=== PATIENT | female | born 1975 | race African-American/Black ===

== ENCOUNTER 2016-10-26 06:30 | Inpatient (IN) ==
[2016-10-26 07:25] LABS: Basophils % 0.5 % (0.0-0.8); Hematocrit 33.6 VOL% (35.7-47.0); Hemoglobin 10.1 GM/DL (12.0-16.0); Immature Granulocytes % 0.3 %; Immature Granulocytes Absolute 0.02 #; Lymphocytes # 1.9 10*3/uL (1.4-4.0); Lymphocytes % 23.7 % (21.3-54.2); Mean Corpuscular HGB Conc 30.1 GM/DL (32-36); Mean Corpuscular Hemoglobin 24 PG (27-34); Mean Corpuscular Volume 80.2 FL (87-102); Mean Platelet Volume 9.7 FL (9.6-12.0); Monocytes # 0.5 10*3/uL (0.11-0.8); Monocytes % 6.1 % (1.7-12.7); Neutrophils # 5.6 10*3/uL (1.4-7.4); Neutrophils % 69.4 % (38.7-73.9); Platelet Count 420 T/CUMM (130-400); Red Blood Count 4.19 MC/CUMM (3.8-5.5); Red Cell Distribution Width 19.7 % (9.3-17.3)
[2016-10-26] MEDS ORDERED: FUROSEMIDE 40 MG/4 ML VIAL IV STA (07:45)
--- NOTE | 2016-10-26 07:46 | XRay Report ---
Referring Physician: Johnathan Miramontes Exam: XR chest 1V portable Date: October 26, 2016 at 7:23 AM Reason: Shortness of breath Comparison: Chest one view portable March 30, 2016 Findings: The cardiac silhouette is again enlarged. There are hazy opacities in the perihilar regions and within both lower lung zones. This likely represents pulmonary edema, but other considerations include pneumonia. No pneumothorax is identified, but there is minimal bilateral pleural fluid. No acute osseous process is seen. Impression: 1. Cardiomegaly. 2. There are hazy opacities in the perihilar regions and within both lower lung zones. This is concerning for pulmonary edema, but other considerations include pneumonia. 3. Minimal bilateral pleural fluid. PROCEDURE INTERPRETED AT [facility] DEPARTMENT OF RADIOLOGY Final Report Signed by: Dr. Juvencio Gleason
[2016-10-26] MEDS ORDERED: FUROSEMIDE 100 MG/10 ML VIAL ONE (07:51)
[2016-10-26] MEDS ORDERED: FUROSEMIDE 40 MG/4 ML VIAL ONE (07:54)
[2016-10-26 07:56] LABS: Albumin 1.9 G/DL (3.4-5.0); Bilirubin,Total 0.4 MG/DL (0.2-1.0); Calcium 8.1 MG/DL (8.5-10.1); Osmolality,Calculated 305.1 MOS/KG (273-304); Total Protein 5.1 G/DL (6.4-8.3)
--- NOTE | 2016-10-26 08:07 | EKG Report ---
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
[2016-10-26] MEDS ORDERED: LABETALOL 20 MG/4 ML SYRINGE IV ONE (08:19)
[2016-10-26] MEDS ORDERED: LABETALOL 20 MG/4 ML SYRINGE IV STA (08:22)
--- NOTE | 2016-10-26 08:26 | Emergency Department Note ---
Alvarado Azar Hilary, am scribing for, and in the presence of, Johnathan Miramontes MD 07:38. Kulwinder Azar Phillip K, MD, personally performed the services described in this documentation, ascribed by Keke Childers in my presence, and it is both accurate and complete 826 . Arrival - Arrival Chief Complaint: Shortness of Breath Stated Complaint: sob ED Nursing Triage Note: C/O Swelling to entire body- 4+ pitting edema to lower exts/ Shortness of breath with exertion/laying down and HTN. Onset approx one week ago. Pt denies seeking medical attention until today. Pt reports a significant weight gain of approx 15-20 pounds over the past 2 weeks. FSG 74 at time of triage Mode of Arrival: Wheelchair Limitations: No Limitations Source: Patient, RN Notes Reviewed - History of Present Illness HPI Narrative: Pt is a 41 y/o black female presenting to the ED with c/o swelling to her entire body, SOB with exertion and lying down which onset a week ago. She reports that she went to family Dr a few days ago and they told her she needs to go see a Kidney Dr. Pt confirms swelling, and SOB but denies cough, fever. Pt has a PMHx of HTN, Depression, Anxiety, Previous Suicide attempt, Seizures, Glaucoma, Dyslipidemia, and IDDM. No other complaints or problems stated in the ED. Onset (ago): week(s) Date of Last Menstrual Period: 2 weeks ago Allergies/Adverse Reactions: Allergies Allergy/AdvReac Type Severity Reaction Status Date / Time No Known Allergies Allergy Verified 03/28/16 04:21 Home Medications: Home Medications Medication Instructions Recorded Confirmed Type buPROPion HCl [Wellbutrin Sr] 200 mg PO BID@05/16/15 04/07/16 History ARIPiprazole [Aripiprazole] 20 mg PO DAILY 12/01/15 04/06/16 History Latanoprost [Latanoprost 0.005 % 1 drop BOTH EYES BEDTIME 04/06/16 04/06/16 History Oph Soln] Pravastatin [Pravachol] 20 mg PO BEDTIME 04/06/16 04/06/16 History Carvedilol [Coreg] 25 mg PO BID #60 tablet 04/10/16 Rx Docusate Sodium Cap [Colace Cap] 100 mg PO BID PRN #60 capsule 04/10/16 Rx Ferrous Sulfate ER Tab [Slow Fe] 140 mg PO BID #60 tablet 04/10/16 Rx Insulin Lispro Prot/Lisp 75/25 40 unit SUBCUT AC SUPPER #7 04/10/16 Rx [HumaLOG Mix 75/25] injection Insulin Lispro Prot/Lisp 75/25 50 unit SUBCUT AC BREAKFAST #7 04/10/16 Rx [HumaLOG Mix 75/25] injection Ziprasidone Cap [Geodon Cap] 80 mg PO BID capsule 04/10/16 Rx amLODIPine [Norvasc] 10 mg PO BEDTIME #30 tablet 04/10/16 Rx hydrALAZINE TAB [Apresoline Tab] 50 mg PO QID #120 tablet 04/10/16 Rx Review of System - Review of System 12 point system: reviewed and no additional remarkable complaints except as stated - Review of System Constitutional: Present: weight gain (15-20lbs in 2 weeks). Absent: fever Respiratory: Present: respiratory distress (SOB upon exertion and laying down). 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), Glaucoma Endocrine: History of: Diabetes Mellitus (IDDM), Dyslipidemia Respiratory: History of: Obstructive Sleep Apnea (C PAP AT BED TIME SINCE 10/18) , Pneumonia (5 YRS AGO) Renal: History of: Renal Problems Genitourinary: History of: Recurring Urinary Tract Infections - Surgical History HEENT Surgeries: Patient denies: Thyroid Surgery - Family History Family History: Reports;: Family Diabetes (GM X2, PAT AUNT X3), Family Hypertension (MOM,DAD) Denies;: Family Cancer, Family Heart Disease, Family Psychiatric Problems, Family Stroke - Social History Smoking Status: Never smoker Frequency of Alcohol Use: None Type of Drug Use: None Exam Vital Signs: Vital Signs Temperature 98.8 F 10/26/16 06:32 Pulse Rate 75 10/26/16 08:33 Respiratory Rate 20 10/26/16 08:33 Blood Pressure 188/117 10/26/16 08:33 O2 Sat by Pulse Oximetry 98 10/26/16 08:33 - General General appearance: alert, in no apparent distress - Head Head exam: Present: atraumatic, normocephalic - Eye Eye exam: Present: normal appearance, PERRL, EOMI - ENT ENT exam: Present: mucous membranes moist, TM's normal bilaterally. Absent: mucous membranes dry - Neck Neck exam: Present: full ROM, trachea midline. Absent: tenderness - Chest Chest inspection: Present: symmetric chest wall rise. Absent: tenderness - Respiratory Respiratory exam: Present: normal lung sounds bilaterally. Absent: respiratory distress - Cardiovascular Cardiovascular exam: Present: regular rate, normal rhythm, normal heart sounds. Absent: murmur, rubs, gallop - Abdominal Exam Abdominal exam: Present: soft, normal bowel sounds. Absent: distention, tenderness - Extremities Exam Extremities exam: Present: full ROM, pedal edema (3+ edema bilaterally to lower extremities). Absent: tenderness - Back Exam Back exam: Present: full ROM. Absent: tenderness - Neurological Exam Neurological exam: Present: alert, oriented X3, CN II-XII intact - Psychiatric Psychiatric exam: Present: normal affect, normal mood - Skin Skin exam: Present: warm, dry, intact, normal color. Absent: rash Course Course Narrative: Patient discussed with the hospitalist who will admit for further evaluation and nephrology consult. Results - Labs CBC & BMP: 10/26/16 07:17 10/26/16 07:17 Lab Results: I have reviewed the patients labs Labs: Laboratory Tests 10/17/16 10/17/16 10/26/16 12:03 12:03 07:17 WBC 6.3 8.0 RBC 4.17 4.19 Hgb 10.4 L 10.1 L Hct 33.3 L 33.6 L MCV 79.9 L 80.2 L MCH 25 L 24 L MCHC 31.2 L 30.1 L RDW 19.4 H 19.7 H Plt Count 420 H MPV 9.4 L Sodium 148 H Potassium 3.5 Chloride 116 H Carbon Dioxide 25 BUN 33 H Creatinine 2.70 H Glucose 52 L Calcium 7.6 L Laboratory Tests 10/26/16 10/26/16 07:17 07:17 Sodium 149 H Potassium 4.0 Chloride 116 H Carbon Dioxide 24 BUN 46 H Creatinine 3.00 H Glucose 64 L Calculated Osmolality 305.1 H Calcium 8.1 L Alkaline Phosphatase 133 H B-Natriuretic Peptide 520 H Total Protein 5.1 L Albumin 1.9 L Albumin/Globulin Ratio 0.5 L Laboratory Tests 10/26/16 08:04 Urine Color Yellow Urine Appearance Slightly hazy Urine Urobilinogen < 2.0 H - EKG EKG results: interpreted by SANDRA, WNL, sinus rhythm - Diagnostic Findings Procedure: Chest x-ray: report reviewed by me (1. Cardiomegaly 2. There are hazy opacities in the perihilar regions and wihin both lower lung zones. This is concerning for pulmonary edema, but other considerations include pneumonia. 3. Minimal bilaterally pleural fluid) Disposition Clinical Impression: Congestive heart failure, Hypoalbuminemia, Chronic renal failure, Peripheral edema Case discussed with: patient Disposition: Still a Patient Condition: Guarded Additional Instructions: Admit to the hospitalist.
[2016-10-26 08:36] LABS: Apearance,Urine Slightly Hazy (Clear); Bacteria,Urine Many /HPF (Few); Bilirubin,Urine Negative (Negative); Blood, Urine Small mg/dL (Negative); Glucose,Urine (UA) 50 mg/dL (Negative); Ketones,Urine Negative (Negative); Nitrite,Urine Negative (Negative); Protein,Urine >=500 MG/DL; RBC,Urine 14 /HPF (0-4); Squamous Epithelial Cell,Urine Occasional /HPF (0-10); Urine Color Yellow (Yellow); Urine Specific Gravity 1.017 (1.001-1.035); Urine Urobilinogen < 2.0 EU/DL (0.2-1.0); WBC,Urine 3 /HPF (0-6)
[2016-10-26] MEDS ORDERED: hydrALAZINE 20 MG/1 ML VIAL IV STA (08:47)
[2016-10-26] MEDS ORDERED: hydrALAZINE 20 MG/1 ML VIAL ONE (08:48)
--- NOTE | 2016-10-26 09:23 | Hospitalist History & Physical ---
Assessment and Plan (1) Hypertensive nephrosclerosis Status: Acute Assessment and plan: Systolic blood pressure greater than 200 on admission. Urinalysis showed proteinuria greater than 500. Creatinine 3.00. Patient given labetalol and hydralazine in the ER with minimal response. She started on Cardene drip. Patient will be admitted to the ICU for further observation and treatment. We will consult nephrology Current Visit: Yes (2) Hypoglycemia associated with diabetes Status: Acute Assessment and plan: Serum glucose 64 on admission. Hold all diabetic medication. Monitor Accu- Cheks ACHS. Sliding scale insulin per protocol. Current Visit: Yes (3) Hypoalbuminemia Status: Acute Current Visit: Yes (4) Peripheral edema Status: Acute Assessment and plan: Given IV lasix 80mg in ED. Current Visit: Yes History of Present Illness Chief complaint: SOB, edema History of present illness: Ms. Dorado is a 41 year old female with a past medical history significant for hypertension, IDDM, medical noncompliance presents to the emergency room with complaints of generalized edema 1 week. The patient reports that she noticed her eyes and legs were swelling last week she also found it difficult to catch her breath. Patient states that she does have hypertension and diabetes however she has been noncompliant with her medications. She is followed by Dr. Lopes at [facility] but does not see a specialist of any sort. She reports that she has been told that her kidney function has been declining, however, she has not yet seen a level vial setter. She admits headache, generalized edema, dyspnea, JACKSON, difficulty walking. She denies any pain, nausea vomiting, numbness or tingling. She reports having gained 20 pounds over 2 weeks. Chest x-ray on admission shows cardiomegaly and is suspicious for pulmonary edema with minimal bilateral pleural fluid. Lab findings reveal WBC 8.0 hemoglobin 10.1 hematocrit 33.6 platelets 420 sodium 149 potassium 4.0 chloride 116 HCO3 24 BUN 46 creatinine 3.00 BNP 520 glucose 64 albumin 1.9. Urinalysis shows protein greater than 500. The patient will be admitted to hospital medicine service for further evaluation and treatment. She is a full code. Home Medications Medication Instructions Recorded Confirmed Type buPROPion HCl [Wellbutrin Sr] 200 mg PO BID@08,15 05/16/15 10/26/16 History ARIPiprazole [Aripiprazole] 20 mg PO DAILY 12/01/15 10/26/16 History Latanoprost [Latanoprost 0.005 % 1 drop BOTH EYES BEDTIME 04/06/16 10/26/16 History Oph Soln] Pravastatin [Pravachol] 20 mg PO BEDTIME 04/06/16 10/26/16 History Carvedilol [Coreg] 25 mg PO BID #60 tablet 04/10/16 10/26/16 Rx Ferrous Sulfate Tab [Feosol 325 mg PO BID 10/26/16 10/26/16 History Original Tab] Furosemide Tab [Lasix Tab] 40 mg PO QAM 10/26/16 10/26/16 History Insulin Lispro Prot/Lisp 75/25 20 unit SUBCUT AC SUPPER 10/26/16 10/26/16 History [HumaLOG Mix 75/25] Insulin Lispro Prot/Lisp 75/25 40 unit SUBCUT AC BREAKFAST 10/26/16 10/26/16 History [HumaLOG Mix 75/25] hydrALAZINE TAB [Apresoline Tab] 50 mg PO TID 10/26/16 10/26/16 History Allergies Allergy/AdvReac Type Severity Reaction Status Date / Time No Known Allergies Allergy Verified 03/28/16 04:21 Medical,Surgical,& Family Hx - Medical History Cardio: History of: Hypertension Psychological: History of: Anxiety Disorders, Depression, Previous Suicide Attempt Neurology: History of: Seizures HEENT: History of: 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), Glaucoma Endocrine: History of: Diabetes Mellitus (IDDM), Dyslipidemia Respiratory: History of: Obstructive Sleep Apnea (C PAP AT BED TIME SINCE 10/18) , Pneumonia (5 YRS AGO) Renal: History of: Renal Problems Genitourinary: History of: Recurring Urinary Tract Infections - Surgical History HEENT Surgeries: Patient denies: Thyroid Surgery - Family History Family History: Reports;: Family Diabetes (GM X2, PAT AUNT X3), Family Hypertension (MOM,DAD) Denies;: Family Cancer, Family Heart Disease, Family Psychiatric Problems, Family Stroke - Social History Smoking Status: Never smoker Frequency of Alcohol Use: None Type of Drug Use: None Marital Status: Single Lives With:: Parent Functional capacity: independent ambulation Exam - Constitutional Vitals: Period Temp Pulse Resp BP Sys/Marti Pulse Ox Last 24 Hr 98.8 F-98.8 F 75-86 20-26 188-223/106-134 90-100 General appearance: no acute distress, morbidly obese - Head Head exam: Present: normal inspection, normocephalic. Absent: abrasion, laceration - Eye Eye exam: Present: EOMI Pupils: Present: SAVANAH - ENT ENT exam: Present: normal exam, normal external ear exam - Neck Neck exam: Present: normal inspection. Absent: lymphadenopathy, tenderness, thyromegaly - Respiratory Respiratory exam: Present: decreased breath sounds. Absent: rales, rhonchi, wheezes - Cardiovascular Cardiovascular exam: Present: regular rate and rhythm. Absent: bradycardia, carotid bruit - GI/Abdominal GI/Abdominal exam: Present: normal bowel sounds. Absent: mass, tenderness, rebound - Extremities Exam Extremities exam: Present: normal inspection, edema (2+-3+ pitting LE bilaterally) - Back Exam Back exam: Present: normal inspection - Neurological Exam Neurological exam: Present: alert, oriented X3, CN II-XII intact - Psychiatric Psychiatric exam: Present: normal affect, normal mood - Skin Skin exam: Present: normal color, warm, dry Results - Labs CBC & BMP: 10/26/16 07:17 10/26/16 07:17 Lab Results: I have reviewed the past 24 hour labs - EKG EKG results: interpreted by SANDRA, sinus rhythm - Diagnostic Findings Procedure: Chest x-ray: image reviewed by me, report reviewed by me (pulmonary edema)
[2016-10-26] MEDS: niCARdipine INJ 25 MG in SODIUM CHLORIDE 0.9% 240 ML IV SCH ×3 (10:28→21:16)
[2016-10-26] MEDS ORDERED: ACETAMINOPHEN 325 MG TABLET PO PRN (10:44)
[2016-10-26] MEDS ORDERED: ONDANSETRON 4 MG/2 ML VIAL IV PRN (10:44)
[2016-10-26] MEDS ORDERED: MORPHINE 2 MG/1 ML SYRINGE IV PRN (10:44)
[2016-10-26] MEDS ORDERED: GLUCAGON 1 MG VIAL IM PRN (10:54)
[2016-10-26 11:34] LABS: Risk Ratio 1.96; Thyroid Stimulating Hormone 5.14 uIU/ml (0.358-3.74)
[2016-10-26] MEDS ORDERED: niCARdipine 25 MG/10 ML VIAL IV ONE (15:32)
[2016-10-26] MEDS: LACTULOSE 20 GM/30 ML UDCUP PO SCH ×4 (16:46→17:06)
[2016-10-26] MEDS: FUROSEMIDE 40 MG/4 ML VIAL IV SCH (16:47)
[2016-10-26] MEDS: buPROPion SR 100 MG TABLET PO SCH (16:47)
[2016-10-26] MEDS: INSULIN LISPRO 100 UNIT/ML SUBCUT SCH ×4 (16:47→21:06)
[2016-10-26] MEDS: ENOXAPARIN 30 MG/0.3 ML SYRINGE SUBCUT SCH (21:02)
[2016-10-26] MEDS: DOCUSATE SODIUM 100 MG CAPSULE PO SCH (21:05)
[2016-10-26] MEDS: CARVEDILOL 25 MG TABLET PO SCH (21:05)
[2016-10-26] MEDS: FERROUS SULFATE 325 MG TABLET PO SCH (21:05)
[2016-10-26] MEDS: PRAVASTATIN 20 MG TABLET PO SCH (21:05)
[2016-10-27] MEDS: niCARdipine INJ 50 MG in SODIUM CHLORIDE 0.9% 480 ML IV SCH (01:31)
[2016-10-27 06:46] LABS: Basophils % 0.5 % (0.0-0.8); Eosinophils % 0.1 % (0.00-10.9); Hematocrit 30.8 VOL% (35.7-47.0); Hemoglobin 9.5 GM/DL (12.0-16.0); Immature Granulocytes % 0.5 %; Immature Granulocytes Absolute 0.04 #; Lymphocytes # 1.6 10*3/uL (1.4-4.0); Lymphocytes % 21.7 % (21.3-54.2); Mean Corpuscular HGB Conc 30.8 GM/DL (32-36); Mean Corpuscular Hemoglobin 24 PG (27-34); Mean Corpuscular Volume 78.8 FL (87-102); Mean Platelet Volume 9.9 FL (9.6-12.0); Monocytes # 0.6 10*3/uL (0.11-0.8); Monocytes % 7.7 % (1.7-12.7); Neutrophils # 5.1 10*3/uL (1.4-7.4); Neutrophils % 69.5 % (38.7-73.9); Platelet Count 390 T/CUMM (130-400); Red Blood Count 3.91 MC/CUMM (3.8-5.5); Red Cell Distribution Width 19.8 % (9.3-17.3); White Blood Count 7.4 T/CUMM (4-12)
[2016-10-27 08:00] LABS: Calcium 7.4 MG/DL (8.5-10.1); Magnesium 2.7 MG/DL (1.8-2.4); Osmolality,Calculated 308.8 MOS/KG (273-304); Potassium 3.8 MMOL/L (3.5-5.1)
[2016-10-27] MEDS: INSULIN LISPRO 100 UNIT/ML SUBCUT SCH ×4 (08:12→21:30)
[2016-10-27] MEDS: DOCUSATE SODIUM 100 MG CAPSULE PO SCH ×2 (08:12→21:30)
[2016-10-27] MEDS: buPROPion SR 100 MG TABLET PO SCH ×2 (08:12→14:52)
[2016-10-27] MEDS: CARVEDILOL 25 MG TABLET PO SCH ×2 (08:12→21:30)
[2016-10-27] MEDS: PANTOPRAZOLE 40 MG TABLET PO SCH (08:12)
[2016-10-27] MEDS: FUROSEMIDE 40 MG/4 ML VIAL IV SCH ×3 (08:12→21:30)
[2016-10-27] MEDS: FERROUS SULFATE 325 MG TABLET PO SCH ×2 (08:13→21:30)
[2016-10-27] MEDS ORDERED: FUROSEMIDE 40 MG/4 ML VIAL IV SCH (09:00)
[2016-10-27] MEDS ORDERED: amLODIPine 5 MG TABLET PO SCH (09:00)
--- NOTE | 2016-10-27 12:17 | Nephrology Consult Note ---
History of Present Illness Chief complaint: Increased BUN and creatinine History of present illness: Ms. Dorado is a 41 year old female who was admitted for shortness of breath. The patient states she became very short of breath yesterday morning however she has had some progressive shortness of breath the past week or 2. She is also noted some increased swelling in her feet and legs as well as around her eyes. Patient states her shortness of breath has been worse at night she has been unable to lay flat like she usually does. She is also had some dyspnea on exertion. The patient has had some nonproductive cough. She denies any fever. She denies any chest pain. She denies any previous episodes of swelling or shortness of breath like this. We were asked see the patient for increased creatinine on admission the patient's creatinine was 3 mg/dL review of her previous creatinines reveals about a week or 2 ago she had a creatinine of 2.7 and a month or more ago the patient had a creatinine of around 2 mg/dL. In the past year the patient's creatinine has varied from around 1.5 mg/dL up to 2.4 mg /dL. The patient denies any decrease in her urine output. She denies any nonsteroidal anti-inflammatory drug use. The patient has not had any contrast studies done recently. The patient does have a 15+ year history of diabetes and hypertension. The patient was uncertain but thought that perhaps she had 1 of her medications stopped recently and is not sure whether this was the diuretic or not. ROS: Head -positive headaches ENT - denies sore throat Lymphatics - denies lymphadenopathy Hematology - denies bleeding problems Heart - denies chest pain Lungs -positive shortness of breath Abdomen - denies abdominal pain Musculoskeletal - denies arthritis Skin - denies rash Neurology - denies stroke General - denies fever PE: General: in no acute distress Eyes: Pupils are round and reactive, conjunctivae are clear ENT: Nose is clear, O/P is benign Neck: Supple, no thyromegaly Lymphatics: No cervical, supraclavicular or axillary adenopathy Heart: Regular rate and rhythm, patient has 2+ pitting edema in her pretibial area and the pitting edema extends up into her abdominal wall, she also has swelling in her upper extremities Lungs: Clear to auscultation anteriorly, chest expansion symmetric Abdomen: Soft, normoactive bowel sounds, no hepatomegaly Musculoskeletal: No joint erythema or effusions or joint asymmetry Skin: Normal turgor, normal hydration, no rash Neuro/Psych: Alert and cooperative with fair insight Home Medications Medication Instructions Recorded Confirmed Type buPROPion HCl [Wellbutrin Sr] 200 mg PO BID@08,15 05/16/15 10/26/16 History ARIPiprazole [Aripiprazole] 20 mg PO DAILY 12/01/15 10/26/16 History Latanoprost [Latanoprost 0.005 % 1 drop BOTH EYES BEDTIME 04/06/16 10/26/16 History Oph Soln] Pravastatin [Pravachol] 20 mg PO BEDTIME 04/06/16 10/26/16 History Carvedilol [Coreg] 25 mg PO BID #60 tablet 04/10/16 10/26/16 Rx Ferrous Sulfate Tab [Feosol 325 mg PO BID 10/26/16 10/26/16 History Original Tab] Furosemide Tab [Lasix Tab] 40 mg PO QAM 10/26/16 10/26/16 History Insulin Lispro Prot/Lisp 75/25 20 unit SUBCUT AC SUPPER 10/26/16 10/26/16 History [HumaLOG Mix 75/25] Insulin Lispro Prot/Lisp 75/25 40 unit SUBCUT AC BREAKFAST 10/26/16 10/26/16 History [HumaLOG Mix 75/25] hydrALAZINE TAB [Apresoline Tab] 50 mg PO TID 10/26/16 10/26/16 History Allergies Allergy/AdvReac Type Severity Reaction Status Date / Time No Known Allergies Allergy Verified 03/28/16 04:21 Medical,Surgical,& Family Hx - Medical History Cardio: History of: Hypertension Psychological: History of: Anxiety Disorders, Depression, Previous Suicide Attempt Neurology: History of: Seizures HEENT: History of: 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), Glaucoma Endocrine: History of: Diabetes Mellitus (IDDM), Dyslipidemia Respiratory: History of: Obstructive Sleep Apnea (C PAP AT BED TIME SINCE 10/18) , Pneumonia (5 YRS AGO) Renal: History of: Renal Problems Genitourinary: History of: Recurring Urinary Tract Infections - Surgical History HEENT Surgeries: Patient denies: Thyroid Surgery - Family History Family History: Reports;: Family Diabetes (GM X2, PAT AUNT X3), Family Hypertension (MOM,DAD) Denies;: Family Cancer, Family Heart Disease, Family Psychiatric Problems, Family Stroke - Social History Smoking Status: Never smoker Frequency of Alcohol Use: None Type of Drug Use: None Exam - Vital Signs Vital signs: Period Temp Pulse Resp BP Sys/Marti Pulse Ox Last 24 Hr 98.3 F-99.2 F 75-96 12-22 100-210/68-124 93-99 Results - Labs CBC & BMP: 10/27/16 04:00 10/27/16 07:00 Assessment and Plan (1) ARF (acute renal failure) Status: Resolved Assessment and plan: This patient had a creatinine around 2.7 mg/dL a few weeks ago it is now increased to 3.2 mg/dL today. This may be related to her volume overload and congestive changes. I agree with Lasix administration and diuresis. I will check a renal ultrasound. Current Visit: No (2) Chronic renal failure Status: Acute Assessment and plan: The patient's had an elevated creatinine in the past year, I would say her baseline creatinine is probably around 2 mg/dL or little bit higher. I suspect her chronic renal insufficiency is related to hypertension and diabetes. Current Visit: Yes (3) Congestive heart failure Status: Acute Assessment and plan: We will check an echocardiogram Current Visit: Yes (4) Hypoalbuminemia Status: Acute Assessment and plan: I am going to quantitate her albumin excretion with a spot urine microalbumin to creatinine ratio. She would do well to have a MEG or angiotensin receptor pablo added to her regimen at some point. I would hesitate to add it at this time as we actively diurese her. Current Visit: Yes (5) Peripheral edema Status: Acute Current Visit: Yes (6) Anemia Status: Acute Assessment and plan: This is relatively mild with hematocrit of around 31% Current Visit: No (7) Pulmonary edema Status: Acute Assessment and plan: Patient's breathing has improved with the Lasix administration. I am going to increase her Lasix dosing frequency to 3 times daily from twice daily. We will monitor her weights and eyes and nose to see how effective treatment is doing. Current Visit: No (8) Hypertension Status: Chronic Assessment and plan: Patient is requiring a Cardene infusion for blood pressure control as we get more of her fluid off this should improve. Current Visit: No (9) Insulin dependent diabetes mellitus Status: Chronic Current Visit: No
--- NOTE | 2016-10-27 12:17 | Hospitalist Progress Note ---
Hospitalist: Subjective Interval history: Pt states SOB is better. No headache, visual changes, nausea, vomiting, abdominal pain. Patient has had urine output. No hematuria reported. Exam - Constitutional Vitals: Period Temp Pulse Resp BP Sys/Marti Pulse Ox Last 24 Hr 98.3 F-99.2 F 75-96 12-22 100-210/68-124 93-99 Exam: GEN: Awake alert and oriented 3, lying in the hospital bed in no acute distress. Morbidly obese. HEENT: Pupils are equal round and reactive to light, extraocular muscles are intact, sclerae clear, conjunctivae pink, nares are patent no discharge or epistaxis noted. Oropharynx is clear Neck: Supple, no lymphadenopathy or thyromegaly appreciated, no JVD. Cardiovascular: Regular rate and rhythm, normal S1-S2, no obvious murmurs rubs or gallops. Lungs: Clear to auscultation bilaterally, diminished, nonlabored breathing noted Abdomen: Soft, nontender, nondistended, positive bowel sounds. No organomegaly or masses appreciated though difficult to assess given her body habitus Extremities: Warm and well-perfused no clubbing or cyanosis. She has +1-2 pitting edema diffusely Neuro: Nonfocal Results - Labs CBC & BMP: 10/27/16 04:00 10/27/16 07:00 - Impressions (1) Hypertensive emergency with renal failure Status: Acute Assessment and plan: - Systolic blood pressure greater than 200 on admission. Urinalysis showed proteinuria greater than 500. Creatinine 3.00. - Patient given labetalol and hydralazine in the ER with minimal response. - Continue Cardene drip. Stop Amlodipine and start Nifedipine orally. - Continue ICU while on cardene drip -Follow-up echo Current Visit: Yes (2) Acute renal failure on CKD ?stage - preliminary results suggest no cortical thinning and mild echogenicity. Follow-up official results -Awaiting nephrology input -Avoid nephrotoxic agents (3) Hypoglycemia associated with diabetes mellitus Status: Acute Assessment and plan: Serum glucose 64 on admission. -Continue to hold all diabetic medication. Monitor Accu-Cheks ACHS. Sliding scale insulin per protocol. Current Visit: Yes (4) Hypoalbuminemia Status: Acute Current Visit: Yes (5) Peripheral edema/ Anasarca Status: Acute Assessment and plan: Given IV lasix 80mg in ED. Continue diuresis. Strict I's and O's with serial renal function panels. Current Visit: Yes
--- NOTE | 2016-10-27 14:03 | XRay Report ---
Referring Physician: John Diana Exam: XR chest 1V portable Date: October 27, 2016 at 2:56 AM Reason: Shortness of breath Comparison: Chest one view portable October 26, 2016 Findings: The cardiac silhouette is again enlarged. There are hazy opacities within the mid and lower lung zones bilaterally. This likely represents pulmonary edema, but other considerations include pneumonia. No pneumothorax is identified, but there is minimal bilateral pleural fluid. The osseous structures appear stable. Impression: There has been no significant change. PROCEDURE INTERPRETED AT [facility] DEPARTMENT OF RADIOLOGY Final Report Signed by: Dr. Juvencio Gleason
--- NOTE | 2016-10-27 14:06 | Ultrasound Report ---
Referring Physician: John De La Rosa Exam: US renal Bilateral Date: October 27, 2016 Reason: Acute renal failure on chronic kidney disease Comparison: Gallbladder ultrasound April 01, 2007 Technique: Grayscale ultrasound images of both kidneys were obtained. Ultrasound images were captured and stored. Findings: The right kidney measures 10.0 x 6.1 x 4.3 cm, and the left kidney measures 8.9 x 4.6 x 4.0 cm. No hydronephrosis or suspicious renal lesion is identified. Evaluation of the renal parenchyma echogenicity is limited by patient body habitus, but it is unremarkable as visualized. Impression: No acute renal process is identified. PROCEDURE INTERPRETED AT [facility] DEPARTMENT OF RADIOLOGY Final Report Signed by: Dr. Juvencio Gleason
--- NOTE | 2016-10-27 20:01 | ECHO Report ---
Xena Dorado 10/27/2016 Exam Date: 10:57 Referring Physician: Bridgett AlcocerTechnologist: Age: 41 Ht (in): 66 Wt (lb): 298 FExam Location: [facility] Gender: Echo [id number]: Shortness of breath, volume overloadIndications: BP: / HR: SinusRhythm: Technical Quality: IMPRESSIONS Normal left ventricular size, with moderate concentric hypertrophy, with normal systolic function. Estimated left ventricular ejection fraction 65%. Grade 2 diastolic dysfunction. Mildly increased right ventricular size, with normal systolic function. Moderate tricuspid regurgitation, with borderline pulmonary hypertension. Biatrial enlargement. MEASUREMENTS (Male / Female) Normal Values 2D ECHO LV Diastolic Diameter PLAX 3.8 cm 4.2 - 5.9 / 3.9 - 5.3 cm LV Systolic Diameter PLAX 2.2 cm LV Fractional Shortening PLAX 41.9 % IVS Diastolic Thickness 1.8 cm 0.6 - 1.0 / 0.6 - 0.9 cm LVPW Diastolic Thickness 1.9 cm 0.6 - 1.0 / 0.6 - 0.9 cm RV Internal Dim ED PLAX 2.9 cm Aortic Root Diameter 2.4 cm LA Systolic Diameter LX 4.7 cm 3.0 - 4.0 / 2.7 - 3.8 cm DOPPLER TR Peak Velocity 258.0 cm/s TR Peak Gradient 26.6 mmHg FINDINGS Left Ventricle Normal left ventricular size, with moderate concentric hypertrophy, with normal systolic function. Estimated left ventricular ejection fraction 65%. Grade 2 diastolic dysfunction. Right Ventricle Mildly increased right ventricular size, with normal systolic function. Right Atrium The right atrium is mildly enlarged. Left Atrium The left atrium is mildly enlarged. Mitral Valve Morphologically normal mitral valve. Trace mitral valve regurgitation. Aortic Valve Structurally normal aortic valve, without stenosis, with trace insufficiency. Tricuspid Valve Morphologically normal tricuspid valve. Moderate eccentric tricuspid valve regurgitation.tricuspid regurgitation velocities suggest a PAP of 37 mmHg. Pulmonic Valve Morphologically normal pulmonic valve. Trace pulmonary valve regurgitation. Pericardium Trace pericardial effusion Aorta Normal ascending aorta dimension. Yamil Caldera (Electronically Signed) 27 Oct 2016 20:00Final Date:
[2016-10-27] MEDS: PRAVASTATIN 20 MG TABLET PO SCH (21:30)
[2016-10-27] MEDS: ENOXAPARIN 30 MG/0.3 ML SYRINGE SUBCUT SCH (21:30)
[2016-10-28] MEDS ORDERED: cloNIDine 0.1 MG/24 HR PATCH TRANSDERM SCH (00:29)
[2016-10-28] MEDS: MINOXIDIL 2.5 MG TABLET PO SCH ×2 (00:34→08:16)
[2016-10-28] MEDS ORDERED: cloNIDine 0.1 MG TABLET PO PRN (03:15)
[2016-10-28 07:00] LABS: Basophils % 0.5 % (0.0-0.8); Eosinophils % 0.1 % (0.00-10.9); Hemoglobin 9.3 GM/DL (12.0-16.0); Immature Granulocytes % 0.5 %; Immature Granulocytes Absolute 0.04 #; Lymphocytes # 1.6 10*3/uL (1.4-4.0); Lymphocytes % 19.1 % (21.3-54.2); Mean Corpuscular Hemoglobin 24 PG (27-34); Mean Corpuscular Volume 78.1 FL (87-102); Mean Platelet Volume 9.6 FL (9.6-12.0); Monocytes # 0.5 10*3/uL (0.11-0.8); Monocytes % 6.2 % (1.7-12.7); Neutrophils # 6.2 10*3/uL (1.4-7.4); Neutrophils % 73.6 % (38.7-73.9); Platelet Count 375 T/CUMM (130-400); Red Blood Count 3.84 MC/CUMM (3.8-5.5); Red Cell Distribution Width 19.1 % (9.3-17.3); White Blood Count 8.4 T/CUMM (4-12)
--- NOTE | 2016-10-28 07:25 | Hospitalist Progress Note ---
Hospitalist: Subjective Interval history: Patient lost IV overnight. Nicardipine had to be stopped. She was started on Catapres, nifedipine and minoxidil with better control of her pressures. She denies headache. Tolerating oral intake. She is having good urine output with IV Lasix but still complains of some shortness of breath and edema. Exam - Constitutional Vitals: Period Temp Pulse Resp BP Sys/Marti Pulse Ox Last 24 Hr 97.8 F-99.8 F 78-97 12-22 135-214/11-132 93-100 Exam: GEN: Awake alert and oriented 3, lying in the hospital bed in no acute distress. Morbidly obese. HEENT: sclerae clear, Oropharynx is clear Neck: Supple, no JVD. Cardiovascular: Regular rate and rhythm, normal S1-S2, 2/6 systolic murmur. Lungs: Clear to auscultation bilaterally, diminished, nonlabored breathing noted Abdomen: Soft, nontender, nondistended, positive bowel sounds. No organomegaly or masses appreciated though difficult to assess given her body habitus Extremities: Warm and well-perfused no clubbing or cyanosis. She has +1-2 pitting edema diffusely Neuro: Nonfocal Results - Labs CBC & BMP: 10/28/16 06:48 10/28/16 06:48 Labs: 2D ECHO: IMPRESSIONS Normal left ventricular size, with moderate concentric hypertrophy, with normal systolic function. Estimated left ventricular ejection fraction 65%. Grade 2 diastolic dysfunction. Mildly increased right ventricular size, with normal systolic function. Moderate tricuspid regurgitation, with borderline pulmonary hypertension. Biatrial enlargement. Renal U/S: - Impressions (1) Hypertensive emergency with renal failure Status: Acute Assessment and plan: - Systolic blood pressure greater than 200 on admission. Urinalysis showed proteinuria greater than 500. Creatinine 3.00. - Patient given labetalol and hydralazine in the ER with minimal response. - DC the minoxidil and continue other agents for now -Can transfer to the floor since off Cardene - Echo shows normal EF with diastolic dysfunction and moderate tricuspid regurgitation Current Visit: Yes (2) Acute renal failure on CKD ?stage due to diabetes mellitus and uncontrolled hypertension - 10/27 Renal U/S- no significant abnormalities noted -Nephrology following. Recommendations reviewed. Serial labs. -Avoid nephrotoxic agents (3) Diabetes mellitus-blood sugars uncontrolled Status: Acute Assessment and plan: Serum glucose 64 on admission. -Resume Humalog 70/30 40 units in the morning, 20 units at night. Monitor Accu- Cheks ACHS. Sliding scale insulin per protocol. Current Visit: Yes (4) Hypoalbuminemia Status: Acute Current Visit: Yes (5) Peripheral edema/ Anasarca due to Acute on chronic diastolic CHF with Moderate TR Status: Acute Assessment and plan: Given IV lasix 80mg in ED. Continue diuresis. Strict I's and O's with serial renal function panels. Current Visit: Yes (6) Suspected HARRY -Needs outpatient sleep study with titration Okay to transfer to the floor with telemetry. Consult IR for central line placement for IV antibiotics and IV access. - Diagnostic Findings Procedure: Ultrasound: report reviewed by me (US renal Bilateral)
[2016-10-28 07:50] LABS: Calcium 7.4 MG/DL (8.5-10.1); Magnesium 2.7 MG/DL (1.8-2.4); Osmolality,Calculated 309.8 MOS/KG (273-304); Potassium 3.9 MMOL/L (3.5-5.1)
[2016-10-28] MEDS: INSULIN LISPRO 100 UNIT/ML SUBCUT SCH ×4 (08:11→20:41)
[2016-10-28] MEDS: CARVEDILOL 25 MG TABLET PO SCH ×2 (08:12→20:41)
[2016-10-28] MEDS: PANTOPRAZOLE 40 MG TABLET PO SCH (08:12)
[2016-10-28] MEDS: DOCUSATE SODIUM 100 MG CAPSULE PO SCH ×2 (08:12→20:41)
[2016-10-28] MEDS: buPROPion SR 100 MG TABLET PO SCH ×2 (08:12→15:35)
[2016-10-28] MEDS: FERROUS SULFATE 325 MG TABLET PO SCH ×2 (08:12→20:41)
[2016-10-28] MEDS: FUROSEMIDE 40 MG/4 ML VIAL IV SCH ×3 (08:15→20:42)
[2016-10-28] MEDS: niCARdipine INJ 50 MG in SODIUM CHLORIDE 0.9% 480 ML IV SCH (08:15)
--- NOTE | 2016-10-28 11:39 | Nephrology Progress Note ---
Nephrology - PN: Subj Interval history: Ms. Dorado states her breathing is better today, she feels like her swelling is decreasing some. Review of systems GI she denies nausea or vomiting Physical exam general the patient is chronically ill-appearing, she continues with diffuse swelling, her weight is up about a KG and a half from her admission however her eyes and nose would suggest that she is in a negative fluid balance. Assessment/plan 1. Acute renal failure-patient's creatinine is stable today at 3.2 mg/dL it was 3 mg/dL on admission, few months ago the patient's creatinine was around 2.7 mg/dL a year or so ago her creatinine was around 2 mg/dL, the patient's renal ultrasound was unremarkable, she leaks about 3 g of albumin per day by spot analysis 2. Diabetes mellitus 3. Hypertension-patient's blood pressure has improved her systolic is around 150 now she is off the Cardene infusion 4. Congestive heart failure-patient seems to be breathing much better and compensated at this time. The patient's echo reveals a systolic ejection fraction of 65% she has grade 2 diastolic dysfunction, she has moderate mitral regurgitation with borderline pulmonary hypertension. We will continue the Lasix 40 mg IV 3 times a day as I am putting more stock in her I/O's than her daily weights Exam (PN)-Nephrology - Vital Signs Vital signs: Period Temp Pulse Resp BP Sys/Marti Pulse Ox Last 24 Hr 97.8 F-99.8 F 76-97 10-22 130-214/11-132 92-100 - Lab 10/28/16 06:48 10/28/16 06:48 Most recent lab results Calcium 7.4 MG/DL (8.5-10.1) L 10/28/16 06:48 Magnesium 2.7 MG/DL (1.8-2.4) H 10/28/16 06:48 Assessment and Plan (1) ARF (acute renal failure) Status: Resolved Assessment and plan: This patient had a creatinine around 2.7 mg/dL a few weeks ago it is now increased to 3.2 mg/dL today. This may be related to her volume overload and congestive changes. I agree with Lasix administration and diuresis. I will check a renal ultrasound. Current Visit: No (2) Chronic renal failure Status: Acute Assessment and plan: The patient's had an elevated creatinine in the past year, I would say her baseline creatinine is probably around 2 mg/dL or little bit higher. I suspect her chronic renal insufficiency is related to hypertension and diabetes. Current Visit: Yes (3) Congestive heart failure Status: Acute Assessment and plan: We will check an echocardiogram Current Visit: Yes (4) Hypoalbuminemia Status: Acute Assessment and plan: I am going to quantitate her albumin excretion with a spot urine microalbumin to creatinine ratio. She would do well to have a MEG or angiotensin receptor pablo added to her regimen at some point. I would hesitate to add it at this time as we actively diurese her. Current Visit: Yes (5) Peripheral edema Status: Acute Current Visit: Yes (6) Anemia Status: Acute Assessment and plan: This is relatively mild with hematocrit of around 31% Current Visit: No (7) Pulmonary edema Status: Acute Assessment and plan: Patient's breathing has improved with the Lasix administration. I am going to increase her Lasix dosing frequency to 3 times daily from twice daily. We will monitor her weights and eyes and nose to see how effective treatment is doing. Current Visit: No (8) Hypertension Status: Chronic Assessment and plan: Patient is requiring a Cardene infusion for blood pressure control as we get more of her fluid off this should improve. Current Visit: No (9) Insulin dependent diabetes mellitus Status: Chronic Current Visit: No
[2016-10-28] MEDS ORDERED: HEPARIN LOCK FLUSH 500 UNIT/5 ML SYRINGE IV ONE (14:45)
--- NOTE | 2016-10-28 15:27 | Interventional Radiology Rpt ---
Exam: IR cvc insert nt >5, IR fluoro guide cv cath, US guide vascular access Date: 10/28/2016 1:35 PM Indication: IV access Vascular interventional radiologist: Robert Manley, RT Fluoroscopy time. 1 1.2 minutes fluoroscopy time with a single image obtained Comparison: None Findings: The risk and benefits were explained and informed consent was obtained. The patient's placed on examination table. The right internal jugular vein area was prepped and with maximal sterile barrier utilized with the oil spreader operator and assistance wearing, caps, gown ,gloves ,facemask and hand washing was utilized. The patient arm was cleansed with ChloraPrep. 1% local lidocaine was administered. Real-time ultrasound guidance was utilized with image stored and captured. Sterile ultrasound gel was utilized. The right internal jugular vein was vein was patent. A micropuncture catheter was placed with real-time ultrasound guidance. An 035 guidewire was advanced and a peel-away sheath was placed. A 7 Nigerien dilator sheath was placed and the wire was advanced subsequently a 5 Nigerien introducer sheath was placed. 5 Nigerien introducer were then removed and over the guidewire A 20 cm 7 Nigerien triple-lumen catheter was placed and secured to the skin with 3-0 suture. The distal tip is in the superior vena cava right atrial junction. Estimated blood loss. None Complications. None Condition. Stable Specimen none Impression: 1. Satisfactory ultrasound and fluoroscopy guided right internal jugular vein catheter placement PROCEDURE INTERPRETED AT [facility] DEPARTMENT OF RADIOLOGY Final Report Signed by: Dr. Robert Carrasco
[2016-10-28] MEDS: INSULIN NPH/REGULAR 70/30 100 UNIT/ML SUBCUT SCH (17:16)
[2016-10-28] MEDS: ENOXAPARIN 30 MG/0.3 ML SYRINGE SUBCUT SCH (20:41)
[2016-10-28] MEDS: PRAVASTATIN 20 MG TABLET PO SCH (20:49)
[2016-10-29] MEDS: CARVEDILOL 25 MG TABLET PO SCH ×2 (08:16→21:08)
[2016-10-29] MEDS: DOCUSATE SODIUM 100 MG CAPSULE PO SCH ×2 (08:16→21:08)
[2016-10-29] MEDS: buPROPion SR 100 MG TABLET PO SCH ×2 (08:16→16:03)
[2016-10-29] MEDS: PANTOPRAZOLE 40 MG TABLET PO SCH (08:17)
[2016-10-29] MEDS: FERROUS SULFATE 325 MG TABLET PO SCH ×2 (08:17→21:16)
[2016-10-29] MEDS: FUROSEMIDE 40 MG/4 ML VIAL IV SCH ×2 (08:17→16:00)
--- NOTE | 2016-10-29 08:29 | Nephrology Progress Note ---
Nephrology - PN: Subj Interval history: Ms. Dorado is seen in follow-up of her acute superimposed on chronic renal impairment. She has 3+ peripheral edema and is no longer short of breath. Her weight remains fairly stable and she is receiving 40 mg of Lasix IV 3 times daily. Blood pressure is reasonable now in the range of 150/80. She does need a bit more diuresis and I think a larger dose less frequently may be the way to go. We will change to 80 mg furosemide twice daily IV. Exam (PN)-Nephrology - Vital Signs Vital signs: Period Temp Pulse Resp BP Sys/Marti Pulse Ox Last 24 Hr 98 F-98.7 F 81-93 12-24 143-195/65-107 92-97 - Lab 10/28/16 06:48 10/28/16 06:48 Most recent lab results Calcium 7.4 MG/DL (8.5-10.1) L 10/28/16 06:48 Magnesium 2.7 MG/DL (1.8-2.4) H 10/28/16 06:48
--- NOTE | 2016-10-29 09:52 | Hospitalist Progress Note ---
Assessment and Plan - Time spent with patient Time spent with patient: Less than 30 minutes (1) Hypertension Status: Acute Assessment and plan: Patient was admitted with a hypertensive emergency and dyspnea secondary to pulmonary edema. Echocardiogram reveals normal LV function with grade 2 diastolic dysfunction. Her blood pressures are fairly well-controlled at this time. Continue current medical therapy. Current Visit: No (2) Diabetes mellitus Status: Chronic Assessment and plan: Blood sugars are improving on current regimen. Continue Accu-Cheks with sliding scale. Current Visit: Yes Qualifiers: Diabetes mellitus type: type 2 (3) Chronic kidney disease Status: Acute Assessment and plan: Patient has acute on chronic kidney disease. Nephrology is following. Appreciate Dr. Flowers's input and adjustment of her IV diuretic therapy. We will follow-up electrolytes renal function in a.m. Current Visit: Yes Hospitalist: Subjective Interval history: Ms. Dorado is doing better today. She denies any chest pain or shortness of breath. She states she she has been a little bit drowsy and continues to have significant swelling of her legs. Exam - Constitutional Vitals: Period Temp Pulse Resp BP Sys/Marti Pulse Ox Last 24 Hr 98 F-98.7 F 81-93 12-24 143-195/65-107 92-97 General appearance: no acute distress - Head Head exam: Present: normocephalic, atraumatic - Eye Eye exam: Present: EOMI Pupils: Present: SAVANAH - ENT ENT exam: Present: normal exam - Neck Neck exam: Present: normal inspection - Respiratory Respiratory exam: Present: clear to auscultation bilaterally. Absent: rales, rhonchi, wheezes - Cardiovascular Cardiovascular exam: Present: regular rate and rhythm. Absent: systolic murmur , tachycardia - GI/Abdominal GI/Abdominal exam: Present: normal bowel sounds, soft. Absent: mass, tenderness , rebound - Extremities Exam Extremities exam: Present: edema (3+ pitting edema) - Back Exam Back exam: Present: normal inspection - Neurological Exam Neurological exam: Present: alert, oriented X3, CN II-XII intact. Absent: motor sensory deficit - Psychiatric Psychiatric exam: Present: normal affect, normal mood - Skin Skin exam: Present: warm, dry. Absent: rash Results - Labs CBC & BMP: 10/28/16 06:48 10/28/16 06:48 Lab Results: I have reviewed the past 24 hour labs
[2016-10-29] MEDS: INSULIN LISPRO 100 UNIT/ML SUBCUT SCH ×4 (11:26→21:08)
[2016-10-29] MEDS: INSULIN NPH/REGULAR 70/30 100 UNIT/ML SUBCUT SCH ×2 (11:26→17:58)
[2016-10-29] MEDS: PRAVASTATIN 20 MG TABLET PO SCH (21:08)
[2016-10-29] MEDS: ENOXAPARIN 30 MG/0.3 ML SYRINGE SUBCUT SCH (21:09)
[2016-10-30 06:21] LABS: Calcium 8.3 MG/DL (8.5-10.1); Osmolality,Calculated 301.8 MOS/KG (273-304); Potassium 3.8 MMOL/L (3.5-5.1)
[2016-10-30] MEDS: FERROUS SULFATE 325 MG TABLET PO SCH ×2 (08:27→20:00)
[2016-10-30] MEDS: PANTOPRAZOLE 40 MG TABLET PO SCH (08:27)
[2016-10-30] MEDS: INSULIN NPH/REGULAR 70/30 100 UNIT/ML SUBCUT SCH ×2 (08:28→17:24)
[2016-10-30] MEDS: DOCUSATE SODIUM 100 MG CAPSULE PO SCH ×2 (08:28→20:00)
[2016-10-30] MEDS: INSULIN LISPRO 100 UNIT/ML SUBCUT SCH ×4 (08:28→20:00)
[2016-10-30] MEDS: buPROPion SR 100 MG TABLET PO SCH ×2 (08:28→14:27)
[2016-10-30] MEDS: CARVEDILOL 25 MG TABLET PO SCH ×2 (08:28→17:32)
[2016-10-30] MEDS: FUROSEMIDE 40 MG/4 ML VIAL IV SCH ×2 (08:28→15:03)
--- NOTE | 2016-10-30 08:32 | Nephrology Progress Note ---
Nephrology - PN: Subj Interval history: Ms. Dorado is seen in follow-up of her chronic renal impairment. She remains very edematous but is not short of breath. Blood pressure is elevated and creatinine stable at 3.3. We are going to add metolazone 5 mg daily to increase diuresis and hopefully diurese another 5 to 10 kg of volume. Thank Exam (PN)-Nephrology - Vital Signs Vital signs: Period Temp Pulse Resp BP Sys/Marti Pulse Ox Last 24 Hr 97.7 F-99.2 F 76-95 19-220 152-191/78-90 93-97 - Lab 10/28/16 06:48 10/30/16 05:10 Most recent lab results Calcium 8.3 MG/DL (8.5-10.1) L 10/30/16 05:10 Magnesium 2.7 MG/DL (1.8-2.4) H 10/28/16 06:48
--- NOTE | 2016-10-30 09:21 | Hospitalist Progress Note ---
Assessment and Plan - Time spent with patient Time spent with patient: Less than 30 minutes (1) Hypertension Status: Acute Assessment and plan: Patient was admitted with a hypertensive emergency and dyspnea secondary to pulmonary edema. Echocardiogram reveals normal LV function with grade 2 diastolic dysfunction. Her blood pressures are fairly well-controlled at this time. Continue current medical therapy. 10/30/16: Continuing to optimize medical management of her hypertension. Current Visit: No (2) Diabetes mellitus Status: Chronic Assessment and plan: Blood sugars are improving on current regimen. Continue Accu-Cheks with sliding scale. 10/30/16: Blood sugars remain high. Will adjust her regimen accordingly. Current Visit: Yes Qualifiers: Diabetes mellitus type: type 2 (3) Chronic kidney disease Status: Acute Assessment and plan: Patient has acute on chronic kidney disease. Nephrology is following. Appreciate Dr. Flowers's input and adjustment of her IV diuretic therapy. We will follow-up electrolytes renal function in a.m. 10/30/16: Blood pressure remains somewhat elevated and she has significant edema. Dr. Flowers is added Zaroxolyn to her current regimen. We will continue to follow electrolytes and renal function. Creatinine is 3.3 this morning and has ranged from 3.0-3.3 during her stay. Current Visit: Yes Hospitalist: Subjective Interval history: Ms. Dorado denies any headache, chest pain, shortness breath, palpitations, abdominal pain, nausea, vomiting. She still has an elevated blood pressure as well as significant lower extremity edema. Dr. Flowers is evaluated this morning and added Zaroxolyn to her regimen. Exam - Constitutional Vitals: Period Temp Pulse Resp BP Sys/Marti Pulse Ox Last 24 Hr 97.7 F-99.2 F 76-95 19-220 152-191/78-90 93-97 General appearance: no acute distress - Head Head exam: Present: normocephalic, atraumatic - Eye Eye exam: Present: EOMI Pupils: Present: SAVANAH - ENT ENT exam: Present: normal exam - Neck Neck exam: Present: normal inspection - Respiratory Respiratory exam: Present: clear to auscultation bilaterally - Cardiovascular Cardiovascular exam: Present: regular rate and rhythm - GI/Abdominal GI/Abdominal exam: Present: normal bowel sounds, soft. Absent: mass, tenderness - Extremities Exam Extremities exam: Present: edema. Absent: calf tenderness - Back Exam Back exam: Present: normal inspection - Neurological Exam Neurological exam: Present: alert, oriented X3, CN II-XII intact. Absent: motor sensory deficit - Psychiatric Psychiatric exam: Present: normal affect, normal mood. Absent: agitated, anxious - Skin Skin exam: Present: warm, dry. Absent: erythema Results - Labs CBC & BMP: 10/28/16 06:48 10/30/16 05:10 Lab Results: I have reviewed the past 24 hour labs
[2016-10-30] MEDS ORDERED: INSULIN NPH/REGULAR 70/30 100 UNIT/ML SUBCUT SCH (09:26)
[2016-10-30] MEDS: metOLazone 5 MG TABLET PO SCH (10:22)
[2016-10-30] MEDS: ARIPiprazole 10 MG TABLET PO SCH (11:02)
[2016-10-30] MEDS: ENOXAPARIN 30 MG/0.3 ML SYRINGE SUBCUT SCH (20:00)
[2016-10-30] MEDS: PRAVASTATIN 20 MG TABLET PO SCH (20:00)
[2016-10-31] MEDS: INSULIN LISPRO 100 UNIT/ML SUBCUT SCH ×5 (08:19→20:38)
[2016-10-31] MEDS: buPROPion SR 100 MG TABLET PO SCH ×2 (08:24→16:08)
[2016-10-31] MEDS: FUROSEMIDE 40 MG/4 ML VIAL IV SCH (08:24)
[2016-10-31] MEDS: ARIPiprazole 10 MG TABLET PO SCH (08:24)
[2016-10-31] MEDS: DOCUSATE SODIUM 100 MG CAPSULE PO SCH ×2 (08:25→20:38)
[2016-10-31] MEDS: metOLazone 5 MG TABLET PO SCH (08:25)
[2016-10-31] MEDS: FERROUS SULFATE 325 MG TABLET PO SCH ×2 (08:25→20:38)
[2016-10-31] MEDS: CARVEDILOL 25 MG TABLET PO SCH ×2 (08:25→16:08)
[2016-10-31] MEDS: POTASSIUM CHLORIDE 20 MEQ TABLET PO PRN (08:25)
[2016-10-31] MEDS: PANTOPRAZOLE 40 MG TABLET PO SCH (08:25)
--- NOTE | 2016-10-31 08:46 | Hospitalist Progress Note ---
Assessment and Plan - Time spent with patient Time spent with patient: Less than 30 minutes (1) Hypertension Status: Acute Assessment and plan: Patient was admitted with a hypertensive emergency and dyspnea secondary to pulmonary edema. Echocardiogram reveals normal LV function with grade 2 diastolic dysfunction. Her blood pressures are fairly well-controlled at this time. Continue current medical therapy. 10/30/16: Continuing to optimize medical management of her hypertension. 10/31/16: Blood pressures are improving. Continue current medical therapy. Current Visit: No (2) Diabetes mellitus Status: Chronic Assessment and plan: Blood sugars are improving on current regimen. Continue Accu-Cheks with sliding scale. 10/30/16: Blood sugars remain high. Will adjust her regimen accordingly. 10/31/16: Blood sugars somewhat labile. Will continue current medical regimen and follow. Current Visit: Yes Qualifiers: Diabetes mellitus type: type 2 (3) Chronic kidney disease Status: Acute Assessment and plan: Patient has acute on chronic kidney disease. Nephrology is following. Appreciate Dr. Flowers's input and adjustment of her IV diuretic therapy. We will follow-up electrolytes renal function in a.m. 10/30/16: Blood pressure remains somewhat elevated and she has significant edema. Dr. Flowers is added Zaroxolyn to her current regimen. We will continue to follow electrolytes and renal function. Creatinine is 3.3 this morning and has ranged from 3.0-3.3 during her stay. 10/31/16: Morning laboratory studies are currently pending. She is continue with diuresis for her peripheral edema. Will await laboratory studies and further recommendations from nephrology. Current Visit: Yes Hospitalist: Subjective Interval history: Patient has no complaints of chest pain or shortness of breath she continues to have swelling in her lower extremities. She has been ambulatory in the grand[facility]. Exam - Constitutional Vitals: Period Temp Pulse Resp BP Sys/Marti Pulse Ox Last 24 Hr 97.5 F-99.2 F 75-89 18-20 157-182/67-88 90-95 General appearance: no acute distress - Head Head exam: Present: normocephalic, atraumatic - Eye Eye exam: Present: EOMI Pupils: Present: SAVANAH - ENT ENT exam: Present: normal exam - Neck Neck exam: Present: normal inspection - Respiratory Respiratory exam: Present: clear to auscultation bilaterally - Cardiovascular Cardiovascular exam: Present: regular rate and rhythm - GI/Abdominal GI/Abdominal exam: Present: normal bowel sounds, soft. Absent: mass, tenderness - Extremities Exam Extremities exam: Present: edema (To 3+ pitting edema bilateral). Absent: calf tenderness - Back Exam Back exam: Present: normal inspection - Neurological Exam Neurological exam: Present: alert, oriented X3, CN II-XII intact. Absent: motor sensory deficit - Psychiatric Psychiatric exam: Present: normal affect, normal mood. Absent: agitated, anxious - Skin Skin exam: Present: warm, dry. Absent: erythema Results - Labs CBC & BMP: 10/28/16 06:48 10/30/16 05:10 Lab Results: I have reviewed the past 24 hour labs
[2016-10-31 10:46] LABS: Calcium 7.9 MG/DL (8.5-10.1); Potassium 3.6 MMOL/L (3.5-5.1)
--- NOTE | 2016-10-31 12:14 | Nephrology Progress Note ---
Nephrology - PN: Subj Interval history: Ms. Dorado is seen in follow-up of her renal impairment with considerable peripheral edema. Her edema remains unchanged and her weight is unchanged despite being on IV Lasix and p.o. metolazone. She is up and around and is not short of breath today. We are going to increase her Lasix from 80 mg twice daily to 160 mg twice daily and will increase metolazone to 10 mg daily. Creatinine remains stable at 3.3 Exam (PN)-Nephrology - Vital Signs Vital signs: Period Temp Pulse Resp BP Sys/Marti Pulse Ox Last 24 Hr 97.6 F-99.2 F 75-93 18-20 154-182/67-88 90-95 - Lab 10/28/16 06:48 10/31/16 09:39 Most recent lab results Calcium 7.9 MG/DL (8.5-10.1) L 10/31/16 09:39 Magnesium 2.7 MG/DL (1.8-2.4) H 10/28/16 06:48
[2016-10-31] MEDS: INSULIN NPH/REGULAR 70/30 100 UNIT/ML SUBCUT SCH ×2 (16:07→17:55)
[2016-10-31] MEDS: FUROSEMIDE 100 MG/10 ML VIAL IV SCH (16:07)
[2016-10-31] MEDS: DEXTROSE 50% 25 GM/50 ML VIAL IV PRN ×2 (17:59→23:32)
[2016-10-31] MEDS: PRAVASTATIN 20 MG TABLET PO SCH (20:38)
[2016-10-31] MEDS: ENOXAPARIN 30 MG/0.3 ML SYRINGE SUBCUT SCH (20:38)
[2016-11-01 06:55] LABS: Calcium 7.4 MG/DL (8.5-10.1); Osmolality,Calculated 298.8 MOS/KG (273-304); Potassium 3.3 MMOL/L (3.5-5.1)
[2016-11-01] MEDS: INSULIN NPH/REGULAR 70/30 100 UNIT/ML SUBCUT SCH ×3 (07:32→17:21)
[2016-11-01] MEDS: INSULIN LISPRO 100 UNIT/ML SUBCUT SCH ×4 (07:32→21:36)
[2016-11-01] MEDS: POTASSIUM CHLORIDE 20 MEQ TABLET PO PRN (08:39)
[2016-11-01] MEDS: metOLazone 5 MG TABLET PO SCH (08:39)
[2016-11-01] MEDS: FUROSEMIDE 100 MG/10 ML VIAL IV SCH ×2 (08:39→16:53)
[2016-11-01] MEDS: PANTOPRAZOLE 40 MG TABLET PO SCH (08:39)
[2016-11-01] MEDS: CARVEDILOL 25 MG TABLET PO SCH ×2 (08:39→16:53)
[2016-11-01] MEDS: ARIPiprazole 10 MG TABLET PO SCH (08:39)
[2016-11-01] MEDS: FERROUS SULFATE 325 MG TABLET PO SCH ×2 (08:39→20:33)
[2016-11-01] MEDS: buPROPion SR 100 MG TABLET PO SCH ×2 (08:39→16:53)
[2016-11-01] MEDS: DOCUSATE SODIUM 100 MG CAPSULE PO SCH ×2 (08:39→20:33)
--- NOTE | 2016-11-01 12:41 | Nephrology Progress Note ---
Nephrology - PN: Subj Interval history: Patient states she feels better. She denies nausea or vomiting. Review of systems pulmonary she denies shortness of breath Physical exam general the patient in no acute distress, she has diffuse edema Assessment/plan 1. Acute renal failure on chronic renal failure-patient's creatinine is fairly stable around 3.3 mg/dL today 2. Diabetes mellitus 3. Hypertension 4. Volume overload-patient had her diuretics increased yesterday we will observe for response. Exam (PN)-Nephrology - Vital Signs Vital signs: Period Temp Pulse Resp BP Sys/Marti Pulse Ox Last 24 Hr 98.0 F-99.8 F 53-91 20-22 137-177/60-92 92-99 - Lab 10/28/16 06:48 11/01/16 04:52 Most recent lab results Calcium 7.4 MG/DL (8.5-10.1) L 11/01/16 04:52 Magnesium 2.7 MG/DL (1.8-2.4) H 10/28/16 06:48 Assessment and Plan (1) ARF (acute renal failure) Status: Resolved Assessment and plan: This patient had a creatinine around 2.7 mg/dL a few weeks ago it is now increased to 3.2 mg/dL today. This may be related to her volume overload and congestive changes. I agree with Lasix administration and diuresis. I will check a renal ultrasound. Current Visit: No (2) Chronic renal failure Status: Acute Assessment and plan: The patient's had an elevated creatinine in the past year, I would say her baseline creatinine is probably around 2 mg/dL or little bit higher. I suspect her chronic renal insufficiency is related to hypertension and diabetes. Current Visit: Yes (3) Congestive heart failure Status: Acute Assessment and plan: We will check an echocardiogram Current Visit: Yes (4) Hypoalbuminemia Status: Acute Assessment and plan: I am going to quantitate her albumin excretion with a spot urine microalbumin to creatinine ratio. She would do well to have a MEG or angiotensin receptor pablo added to her regimen at some point. I would hesitate to add it at this time as we actively diurese her. Current Visit: Yes (5) Peripheral edema Status: Acute Current Visit: Yes (6) Anemia Status: Acute Assessment and plan: This is relatively mild with hematocrit of around 31% Current Visit: No (7) Pulmonary edema Status: Acute Assessment and plan: Patient's breathing has improved with the Lasix administration. I am going to increase her Lasix dosing frequency to 3 times daily from twice daily. We will monitor her weights and eyes and nose to see how effective treatment is doing. Current Visit: No (8) Hypertension Status: Acute Assessment and plan: Patient is requiring a Cardene infusion for blood pressure control as we get more of her fluid off this should improve. Current Visit: No (9) Insulin dependent diabetes mellitus Status: Chronic Current Visit: No
--- NOTE | 2016-11-01 16:47 | Hospitalist Progress Note ---
<JoeCarito - Last Filed: 11/01/16 16:45> Assessment and Plan (1) Chronic kidney disease Status: Acute Assessment and plan: Creatinine at 32 down from 33 on yesterday; Nephrology to manage. Current Visit: Yes (2) Diabetes mellitus Status: Chronic Assessment and plan: Blood glucose levels are stable; continue accuchecks with ss coverage. Current Visit: Yes Qualifiers: Diabetes mellitus type: type 2 (3) Hypertension Status: Acute Assessment and plan: Blood pressures stable with current regimen; will continue to monitor. Current Visit: No Hospitalist: Subjective Interval history: Patient seen and examined; no significant overnight events. Creatinine at 3.2 today from 3.3 on yesterday. Exam - Constitutional Vitals: Period Temp Pulse Resp BP Sys/Marti Pulse Ox Last 24 Hr 98.0 F-99.3 F 53-91 20-22 137-177/60-90 92-99 General appearance: normal weight, no acute distress - Head Head exam: Present: normal inspection, normocephalic. Absent: atraumatic - Eye Eye exam: Present: EOMI. Absent: conjunctival injection, nystagmus Pupils: Present: SAVANAH, normal accommodation - ENT ENT exam: Present: normal exam. Absent: normal external ear exam, normal oropharynx - Neck Neck exam: Present: normal inspection. Absent: lymphadenopathy, meningismus, tenderness, thyromegaly - Respiratory Respiratory exam: Present: clear to auscultation bilaterally. Absent: rales, rhonchi, stridor, wheezes - Cardiovascular Cardiovascular exam: Present: regular rate and rhythm. Absent: carotid bruit, diastolic murmur, gallop, JVD, rubs, systolic murmur - GI/Abdominal GI/Abdominal exam: Present: normal bowel sounds. Absent: mass, tenderness, soft - Extremities Exam Extremities exam: Present: edema (trace edema noted) - Back Exam Back exam: Present: normal inspection - Neurological Exam Neurological exam: Present: alert, oriented X3, CN II-XII intact - Psychiatric Psychiatric exam: Present: normal affect, normal mood - Skin Skin exam: Present: normal color, warm, dry Results - Labs CBC & BMP: 10/28/16 06:48 11/01/16 04:52 Lab Results: I have reviewed the past 24 hour labs <Marybeth,Hatem - Last Filed: 11/01/16 17:26> Assessment and Plan (1) Hypertension Status: Acute Assessment and plan: Patient on Coreg, hydralazine, nifedipine and clonidine as needed. Pressures controlled. Diuresis in process with Zaroxolyn and high-dose IV Lasix. Continue to monitor renal function. Nephrology following. Current Visit: No (2) Insulin dependent diabetes mellitus Status: Chronic Assessment and plan: Continue insulin therapy Current Visit: No (3) Chronic kidney disease Status: Chronic Current Visit: Yes Qualifiers: Chronic kidney disease stage: stage 3 (moderate) Qualified Code(s): N18.3 - Chronic kidney disease, stage 3 (moderate) Hospitalist: Subjective Interval history: Patient seen and examined. No acute events overnight. Case discussed with nursing staff. Labs reviewed. Patient not wearing phototypesetting equipment monitor -will discontinue. Exam - Constitutional Vitals: Period Temp Pulse Resp BP Sys/Marti Pulse Ox Last 24 Hr 98.0 F-99.3 F 53-91 18-22 137-177/60-90 92-99 Results - Labs CBC & BMP: 10/28/16 06:48 11/01/16 04:52 Lab Results: I have reviewed the past 24 hour labs
[2016-11-01] MEDS: PRAVASTATIN 20 MG TABLET PO SCH (20:33)
[2016-11-01] MEDS: ENOXAPARIN 30 MG/0.3 ML SYRINGE SUBCUT SCH (20:33)
[2016-11-02 06:05] LABS: Basophils % 0.3 % (0.0-0.8); Hematocrit 29.1 VOL% (35.7-47.0); Immature Granulocytes % 0.3 %; Immature Granulocytes Absolute 0.02 #; Lymphocytes # 1.6 10*3/uL (1.4-4.0); Lymphocytes % 26.2 % (21.3-54.2); Mean Corpuscular HGB Conc 30.9 GM/DL (32-36); Mean Corpuscular Hemoglobin 24 PG (27-34); Mean Corpuscular Volume 78.4 FL (87-102); Mean Platelet Volume 10.1 FL (9.6-12.0); Monocytes # 0.6 10*3/uL (0.11-0.8); Monocytes % 10.2 % (1.7-12.7); Neutrophils # 3.8 10*3/uL (1.4-7.4); Platelet Count 311 T/CUMM (130-400); Red Blood Count 3.71 MC/CUMM (3.8-5.5); Red Cell Distribution Width 18.4 % (9.3-17.3)
[2016-11-02 06:39] LABS: Albumin 1.6 G/DL (3.4-5.0); Bilirubin,Total 0.5 MG/DL (0.2-1.0); Calcium 7.5 MG/DL (8.5-10.1); Magnesium 2.5 MG/DL (1.8-2.4); Osmolality,Calculated 308.1 MOS/KG (273-304); Phosphorous 3.8 MG/DL (2.5-4.9); Potassium 3.4 MMOL/L (3.5-5.1); Total Protein 4.3 G/DL (6.4-8.3)
[2016-11-02] MEDS: FUROSEMIDE 100 MG/10 ML VIAL IV SCH (10:16)
[2016-11-02] MEDS: metOLazone 5 MG TABLET PO SCH (10:17)
[2016-11-02] MEDS: buPROPion SR 100 MG TABLET PO SCH (10:17)
[2016-11-02] MEDS: PANTOPRAZOLE 40 MG TABLET PO SCH (10:17)
[2016-11-02] MEDS: DOCUSATE SODIUM 100 MG CAPSULE PO SCH (10:18)
[2016-11-02] MEDS: ARIPiprazole 10 MG TABLET PO SCH (10:18)
[2016-11-02] MEDS: FERROUS SULFATE 325 MG TABLET PO SCH (10:18)
[2016-11-02] MEDS: CARVEDILOL 25 MG TABLET PO SCH (10:18)
[2016-11-02 10:54] VITALS: BP 150/89
[2016-11-02] MEDS: INSULIN LISPRO 100 UNIT/ML SUBCUT SCH ×2 (11:11→13:30)
[2016-11-02] MEDS: INSULIN NPH/REGULAR 70/30 100 UNIT/ML SUBCUT SCH (11:12)
--- NOTE | 2016-11-02 11:52 | Discharge Summary ---
<Kellie Shane - Last Filed: 11/02/16 11:45> Hospital Course - Hospital Course Hospital Course: Ms. Dorado is a 41-year-old female with past medical history of hypertension, insulin-dependent diabetes, and medical noncompliance. She was admitted by the hospitalist service on 10/26/2016 with hypertensive emergency with nephrosclerosis, hypoglycemia associated with her diabetes and generalized edema. Patient's diabetes medications were held and her hypertensive medications were adjusted over her hospital stay. She was also diuresed and this will continue as an outpatient basis. Dr. De La Rosa from nephrology was consulted and assisted and medicine reconciliation. Patient's creatinine is stable now around 3.3. Patient's blood sugars are improved and her home insulins have been restarted. She has also been started on potassium supplementation. Patient has reached maximum hospital benefit and is ready for discharge. She will need to follow-up with her physician at [facility] in 1-[address] De La Rosa from nephrology in 2 weeks. Complete discharge instructions were given to the patient. Pts case was discussed with Dr. Rueda the hospitalist, Dr. De La Rosa the flare breaker, patient, nursing, and case management specialist. Case coordination, medicine reconciliation, chart review, and all discharge paperwork took approximately 38 minutes. I evaluated this patient and completed an independent history and physical examination. I coordinated care with PERRY Savage PA-C. I agree with the documentation that she provides below. Case discussed with Dr. De La Rosa prior to discharge. She will follow-up with her primary care physician [facility] and nephrology in 2-3 weeks. Prescriptions given for Lasix and Zaroxolyn. Hydralazine increased. - Time spent with patient Time with patient DS: Greater than 30 minutes Diagnosis - Discharge Diagnosis (1) Dehydration Status: Resolved (2) Hypokalemia Status: Resolved (3) Hypertensive emergency Status: Resolved (4) ARF (acute renal failure) Status: Resolved (5) Peripheral edema Status: Resolved (6) Hypoglycemia associated with diabetes Status: Resolved (7) Chronic kidney disease Status: Chronic Specialty Discharge - Follow Up or Referrals Follow up with: [facility] [Provider Group] - 11/10/16 3:00 pm John De La Rosa MD [Physician] - 11/29/16 9:00 am (with BMP ) Discharge Plan - Discharge Data Disposition: Disch To Home/Self Care Condition at Discharge: Stable Discharge Diet: diabetic diet Activity: resume usual activities as tolerated Driving: no restrictions Contact your physician if you experience:: fever over 101, Nausea/Vomiting, Shortness of breath - Discharge Medications New hydrALAZINE TAB [Apresoline Tab] 100 mg PO BID #60 tablet NIFEdipine XL TAB [Procardia Xl] 60 mg PO BEDTIME #30 tablet Potassium Chloride Cap/Tab [K Dur] 20 meq PO BID #60 tablet Furosemide Tab [Lasix Tab] 160 mg PO TID #180 tablet metOLazone [Zaroxolyn] 20 mg PO DAILY #30 tablet Continue buPROPion HCl [Wellbutrin Sr] 200 mg PO BID@, ARIPiprazole [Aripiprazole] 20 mg PO DAILY Latanoprost [Latanoprost 0.005 % Oph Soln] 1 drop BOTH EYES BEDTIME Pravastatin [Pravachol] 20 mg PO BEDTIME Carvedilol [Coreg] 25 mg PO BID #60 tablet Insulin Lispro Prot/Lisp 75/25 [HumaLOG Mix 75/25] 40 unit SUBCUT AC BREAKFAST Ferrous Sulfate Tab [Feosol Original Tab] 325 mg PO BID Insulin Lispro Prot/Lisp 75/25 [HumaLOG Mix 75/25] 20 unit SUBCUT AC SUPPER Discontinued Furosemide Tab [Lasix Tab] 40 mg PO QAM hydrALAZINE TAB [Apresoline Tab] 50 mg PO TID - Follow Up or Referral Follow Up: [facility] [Provider Group] - 11/10/16 3:00 pm John De La Rosa MD [Physician] - 11/29/16 9:00 am (with BMP ) - Forms/Instructions Instructions: Furosemide (By mouth), Heart Failure (DC), Chronic Kidney Disease (DC) Exam - Constitutional Vitals: Period Temp Pulse Resp BP Sys/Marti Pulse Ox Last 24 Hr 98.1 F-99.0 F 84-97 14-20 145-172/74-92 93-100 Exam: 41-year-old female, no acute distress, alert and oriented Chest clear CV regular rate and rhythm Abdomen soft and nontender Extremities with trace edema Discharge Results Labs on day of discharge: Labs from last 24 hours 11/02/16 11/02/16 11/02/16 13:21 10:39 07:17 WBC RBC Hgb Hct MCV MCH MCHC RDW Plt Count MPV Neut % (Auto) Lymph % (Auto) Cole % (Auto) Eos % (Auto) Baso % (Auto) Neut # (Auto) Lymph # (Auto) Cole # (Auto) Eos # (Auto) Baso # (Auto) Immature Gran % Nucleated RBC % Immature Gran # Nucleated RBCs # Sodium Potassium Chloride Carbon Dioxide Anion Gap BUN Creatinine GFR Calculation BUN/Creatinine Ratio Glucose POC Glucose 272 H 442 H 318 H Calculated Osmolality Calcium Phosphorus Magnesium Total Bilirubin AST ALT Alkaline Phosphatase Total Protein Albumin Globulin Albumin/Globulin Ratio 11/02/16 11/02/16 11/01/16 05:31 05:31 20:40 WBC 6.0 RBC 3.71 L Hgb 9.0 L Hct 29.1 L MCV 78.4 L MCH 24 L MCHC 30.9 L RDW 18.4 H Plt Count 311 MPV 10.1 Neut % (Auto) 63.0 Lymph % (Auto) 26.2 Cole % (Auto) 10.2 Eos % (Auto) 0.0 Baso % (Auto) 0.3 Neut # (Auto) 3.8 Lymph # (Auto) 1.6 Cole # (Auto) 0.6 Eos # (Auto) 0.0 Baso # (Auto) 0.0 Immature Gran % 0.3 Nucleated RBC % 0.0 Immature Gran # 0.02 Nucleated RBCs # 0.00 Sodium 142 Potassium 3.4 L Chloride 102 Carbon Dioxide 33 H Anion Gap 10.4 BUN 52 H Creatinine 3.30 H GFR Calculation 25 BUN/Creatinine Ratio 15.00 Glucose 317 H POC Glucose 389 H Calculated Osmolality 308.1 H Calcium 7.5 L Phosphorus 3.8 Magnesium 2.5 H Total Bilirubin 0.50 AST 22 ALT 23 Alkaline Phosphatase 110 Total Protein 4.3 L Albumin 1.6 L Globulin 2.7 Albumin/Globulin Ratio 0.5 L 11/01/16 16:24 WBC RBC Hgb Hct MCV MCH MCHC RDW Plt Count MPV Neut % (Auto) Lymph % (Auto) Cole % (Auto) Eos % (Auto) Baso % (Auto) Neut # (Auto) Lymph # (Auto) Cole # (Auto) Eos # (Auto) Baso # (Auto) Immature Gran % Nucleated RBC % Immature Gran # Nucleated RBCs # Sodium Potassium Chloride Carbon Dioxide Anion Gap BUN Creatinine GFR Calculation BUN/Creatinine Ratio Glucose POC Glucose 321 H Calculated Osmolality Calcium Phosphorus Magnesium Total Bilirubin AST ALT Alkaline Phosphatase Total Protein Albumin Globulin Albumin/Globulin Ratio DS: Provider Date of admission: 10/26/16 08:13 Primary care physician: Bret Santana Attending physician on admission: Annmarie Earl MD Consults: 10/26/16 10:44 Consult to Physician [CONS] Routine Comment: ANNE Consulting Provider: John De La Rosa Person Notified: Stanley Date Notified: 10/26/16 Time Notified: 16:15 Consult Notification Comment: She will put this on Dr. eD La Rosa's list. Discharging clinician: AJ Li Expected date of discharge: 11/02/16 <Silvana Rueda - Last Filed: 11/02/16 16:36> Hospital Course - Time spent with patient Time with patient DS: Greater than 30 minutes (Total discharge time for this patient, including [id number] time, clinical documentation, medication reconciliation, and discharge planning was 38 minutes.) Diagnosis - Discharge Diagnosis (1) Hypertension Status: Acute (2) Insulin dependent diabetes mellitus Status: Chronic (3) Chronic kidney disease Status: Chronic
--- NOTE | 2016-11-02 12:52 | Nephrology Progress Note ---
Nephrology - PN: Subj Interval history: Patient states he is breathing okay. Review of systems GI she denies nausea or vomiting Physical exam general the patient's in no acute distress, she has marked lower extremity edema Assessment/plan 1. Acute renal failure on chronic renal failure patient's creatinine stabilized around 3.3 mg/dL 2. Diabetes mellitus 3. Hypertension 4. Volume overload-patient's going to go home on Lasix 160 mg p.o. 3 times daily and Zaroxolyn 20 mg a day, I told the patient to invest in a weight scale and weigh herself every day if she is not losing 2-5 pounds over the next week she should increase her Lasix and told her to touch base with us and gave her my office phone number if she needs some guidance with this. Exam (PN)-Nephrology - Vital Signs Vital signs: Period Temp Pulse Resp BP Sys/Marti Pulse Ox Last 24 Hr 98.1 F-99.0 F 84-97 14-20 145-172/74-92 93-100 - Lab 11/02/16 05:31 11/02/16 05:31 Most recent lab results Calcium 7.5 MG/DL (8.5-10.1) L 11/02/16 05:31 Phosphorus 3.8 MG/DL (2.5-4.9) 11/02/16 05:31 Magnesium 2.5 MG/DL (1.8-2.4) H 11/02/16 05:31 Assessment and Plan (1) ARF (acute renal failure) Status: Resolved Assessment and plan: This patient had a creatinine around 2.7 mg/dL a few weeks ago it is now increased to 3.2 mg/dL today. This may be related to her volume overload and congestive changes. I agree with Lasix administration and diuresis. I will check a renal ultrasound. Current Visit: No (2) Chronic renal failure Status: Acute Assessment and plan: The patient's had an elevated creatinine in the past year, I would say her baseline creatinine is probably around 2 mg/dL or little bit higher. I suspect her chronic renal insufficiency is related to hypertension and diabetes. Current Visit: Yes (3) Congestive heart failure Status: Acute Assessment and plan: We will check an echocardiogram Current Visit: Yes (4) Hypoalbuminemia Status: Acute Assessment and plan: I am going to quantitate her albumin excretion with a spot urine microalbumin to creatinine ratio. She would do well to have a MEG or angiotensin receptor pablo added to her regimen at some point. I would hesitate to add it at this time as we actively diurese her. Current Visit: Yes (5) Peripheral edema Status: Resolved Current Visit: Yes (6) Anemia Status: Acute Assessment and plan: This is relatively mild with hematocrit of around 31% Current Visit: No (7) Pulmonary edema Status: Acute Assessment and plan: Patient's breathing has improved with the Lasix administration. I am going to increase her Lasix dosing frequency to 3 times daily from twice daily. We will monitor her weights and eyes and nose to see how effective treatment is doing. Current Visit: No (8) Hypertension Status: Acute Assessment and plan: Patient is requiring a Cardene infusion for blood pressure control as we get more of her fluid off this should improve. Current Visit: No (9) Insulin dependent diabetes mellitus Status: Chronic Current Visit: No Specialty Discharge - Follow Up or Referrals Follow up with: [facility] [Provider Group] - 11/10/16 3:00 pm John De La Rosa MD [Physician] - 2 Weeks (with BMP)
[2016-11-02] MEDS ORDERED: FUROSEMIDE 80 MG TABLET PO SCH (15:00)
[2016-11-02] MEDS ORDERED: POTASSIUM CHLORIDE 20 MEQ TABLET PO SCH (21:00)
[2016-11-03] MEDS ORDERED: metOLazone 5 MG TABLET PO SCH (09:00)
== END 2016-11-02 14:00 | disposition home or self-care (01) | DRG 194 ==
LOC: N.ED 06:30 → SUATTDRO 08:13 → N.EDINP 08:13 → N.ICU 14:31 → N.5E 10-28 18:14
PROVIDERS: ADMIT Internal Medicine; ATTEND Family Medicine

== ENCOUNTER 2017-01-25 18:36 | Inpatient (IN) ==
[2017-01-25] MEDS ORDERED: INSULIN REGULAR 100 UNIT/ML IV STA ×2 (19:01→20:11)
[2017-01-25] MEDS ORDERED: ONDANSETRON 4 MG/2 ML VIAL IV STA (19:01)
[2017-01-25] MEDS ORDERED: SODIUM CHLORIDE 0.9% 1,000 ML IV STA (19:01)
--- NOTE | 2017-01-25 19:10 | Emergency Department Note ---
Arrival - Arrival Chief Complaint: Non-Specific Stated Complaint: trouble with vision-blood sugar high ED Nursing Triage Note: PT C/O BLURRED VISION X2 DAYS. REPORTS GLUCOSE HAS BEEN ELEVATED, READING "HIGH" YESTERDAY. ALSO REPORTS ELEVATED B/P. ACCU CHECK AT TRIAGE 492MG/DL Mode of Arrival: Ambulatory Limitations: No Limitations Source: Patient Time Seen by Provider: 01/25/17 19:01 - History of Present Illness HPI Narrative: This 41-year-old black female presents with 2 days of polyuria, polyphagia, and blurry vision with a blood sugar on arrival of 492. She denies nausea, vomiting , chills, fever, dysuria, or suprapubic tenderness. Patient has been compliant with a daily dose of 7030 insulin of 40 units in the morning and 20 units in the evening. Despite this she reports the last several months that her blood sugars have been riding high, usually in the low 400s. She has been on her current dose of insulin for over a year without any alterations by her primary care physician. Currently she is medically stable despite her symptoms. Onset (ago): day(s) (Patient presents 2 days post onset of symptoms) Date of Last Menstrual Period: JAN 03 Allergies/Adverse Reactions: Allergies Allergy/AdvReac Type Severity Reaction Status Date / Time No Known Allergies Allergy Verified 01/25/17 18:49 Home Medications: Home Medications Medication Instructions Recorded Confirmed Type buPROPion HCl [Wellbutrin Sr] 200 mg PO BID@05/16/15 01/25/17 History ARIPiprazole [Aripiprazole] 20 mg PO DAILY 12/01/15 01/25/17 History Latanoprost [Latanoprost 0.005 % 1 drop BOTH EYES BEDTIME 04/06/16 01/25/17 History Oph Soln] Pravastatin [Pravachol] 20 mg PO BEDTIME 04/06/16 01/25/17 History Carvedilol [Coreg] 25 mg PO BID #60 tablet 04/10/16 01/25/17 Rx Ferrous Sulfate Tab [Feosol 325 mg PO BID 10/26/16 01/25/17 History Original Tab] Insulin Lispro Prot/Lisp 75/25 20 unit SUBCUT AC SUPPER 10/26/16 01/25/17 History [HumaLOG Mix 75/25] Insulin Lispro Prot/Lisp 75/25 40 unit SUBCUT AC BREAKFAST 10/26/16 01/25/17 History [HumaLOG Mix /] Furosemide Tab [Lasix Tab] 80 mg PO TID 01/25/17 01/25/17 History Potassium Chloride [Klor-Con M20] 20 meq PO DAILY 01/25/17 01/25/17 History hydrALAZINE TAB [Apresoline Tab] 100 mg PO TID 01/25/17 01/25/17 History hydroCHLOROthiazide 25 mg PO QID 01/25/17 01/25/17 History [Hydrochlorothiazide] Review of System - Review of System 12 point system: reviewed and no additional remarkable complaints except as stated - Review of System Constitutional: Present: as per HPI Gastrointestinal: Present: as per HPI Endocrine: Present: as per HPI Medical,Surgical,& Family Hx - Medical History Cardio: History of: Hypertension Psychological: History of: Anxiety Disorders, Depression, Previous Suicide Attempt Neurology: History of: Seizures HEENT: History of: 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), Glaucoma Endocrine: History of: Diabetes Mellitus (IDDM), Dyslipidemia Respiratory: History of: Obstructive Sleep Apnea (C PAP AT BED TIME SINCE 10/18) , Pneumonia (5 YRS AGO) Renal: History of: Renal Problems Genitourinary: History of: Recurring Urinary Tract Infections - Surgical History HEENT Surgeries: Patient denies: Thyroid Surgery - Family History Family History: Reports;: Family Diabetes (GM X2, PAT AUNT X3), Family Hypertension (MOM,DAD) Denies;: Family Cancer, Family Heart Disease, Family Psychiatric Problems, Family Stroke - Social History Smoking Status: Never smoker Frequency of Alcohol Use: None Type of Drug Use: None Exam Physical Examination: GENERAL: Well developed, well nourished black female in no acute distress. HEENT: Normocephalic. No trauma. Moist mucous membranes. EOMI. PERRLA. ENT NML NECK: Supple. No adenopathy. CARDIAC: Regular. No murmurs. Heart rate 90 CHEST: Clear to auscultation. No respiratory distress. O2 sat 90% ABDOMEN: Soft. Nontender. Active bowel sounds. EXTREMITIES: No trauma. Normal ROM. No pedal edema. SKIN: No diaphoresis. No rash. NEURO: Alert. Neuro intact no focal deficits. Vital Signs: Vital Signs Temperature 97.9 F 01/25/17 19:51 Pulse Rate 90 01/25/17 19:51 Respiratory Rate 18 01/25/17 19:51 Blood Pressure 187/105 01/25/17 19:51 O2 Sat by Pulse Oximetry 98 01/25/17 18:44 Course - Reevaluation(s) Reevaluation #1: Discussed with patient the need for hospitalization given her azotemia and elevated blood sugar of nearly 800. - Consultations Consultation #1: Discussed with hospitalist service who will admit for further evaluation treatment. Results - Labs CBC & BMP: 01/25/17 19:02 01/25/17 19:02 Disposition Clinical Impression: Hyperglycemic, Renal azotemia Case discussed with: patient Disposition: Still a Patient Condition: Guarded Time of Disposition: 20:12
[2017-01-25 19:28] LABS: Basophils % 0.5 % (0.0-0.8); Eosinophils % 0.7 % (0.00-10.9); Hematocrit 34.5 VOL% (35.7-47.0); Hemoglobin 11.3 GM/DL (12.0-16.0); Immature Granulocytes % 0.4 %; Immature Granulocytes Absolute 0.02 #; Lymphocytes # 1.6 10*3/uL (1.4-4.0); Lymphocytes % 29.6 % (21.3-54.2); Mean Corpuscular HGB Conc 32.8 GM/DL (32-36); Mean Corpuscular Hemoglobin 27 PG (27-34); Mean Corpuscular Volume 81.2 FL (87-102); Mean Platelet Volume 11.4 FL (9.6-12.0); Monocytes # 0.4 10*3/uL (0.11-0.8); Monocytes % 6.6 % (1.7-12.7); Neutrophils # 3.4 10*3/uL (1.4-7.4); Neutrophils % 62.2 % (38.7-73.9); Platelet Count 234 T/CUMM (130-400); Red Blood Count 4.25 MC/CUMM (3.8-5.5); White Blood Count 5.5 T/CUMM (4-12)
[2017-01-25 19:30] LABS: Apearance,Urine CLEAR (Clear); Bilirubin,Urine Negative (Negative); Blood, Urine Negative (Negative); Glucose,Urine (UA) >=500 mg/dL (Negative); Ketones,Urine Negative (Negative); Nitrite,Urine Negative (Negative); Protein,Urine 100 MG/DL; RBC,Urine 1 /HPF (0-4); Squamous Epithelial Cell,Urine Occasional /HPF (0-10); Urine Color Straw (Yellow); Urine Urobilinogen < 2.0 EU/DL (0.2-1.0); WBC,Urine 2 /HPF (0-6)
[2017-01-25] MEDS ORDERED: ONDANSETRON 4 MG/2 ML VIAL ONE (19:33)
[2017-01-25] MEDS ORDERED: INSULIN REGULAR 100 UNIT/ML ONE ×2 (19:34→20:24)
[2017-01-25 20:02] LABS: Alanine Aminotransferase 22 U/L (13-56); Albumin 2.1 G/DL (3.4-5.0); Alkaline Phosphatase 168 U/L (45-117); Aspartate Amino Transferase 16 U/L (0-37); Bilirubin,Total < 0.39 MG/DL (0.2-1.0); Blood Urea Nitrogen 54 MG/DL (7-18); Calcium 7.6 MG/DL (8.5-10.1); Osmolality,Calculated 319.2 MOS/KG (273-304); Potassium 4.1 MMOL/L (3.5-5.1); Sodium 134 MMOL/L (136-145); Total Protein 5.2 G/DL (6.4-8.3)
[2017-01-25 20:04] LABS: Glucose 757 MG/DL (74-106)
[2017-01-25] MEDS ORDERED: SODIUM CHLORIDE 0.9% 2,000 ML IV STA (20:10)
--- NOTE | 2017-01-25 20:32 | Hospitalist History & Physical ---
Assessment and Plan (1) Diabetic hyperosmolar non-ketotic state Status: Resolved Assessment and plan: Patient presents with a hyperosmolar ketotic state with a sugar 757 a positive beta hydroxybutyrate and with a creatinine 3.9. She has had poorly controlled sugars for some time has noted some change in symptoms without any infectious symptoms she does have a headache and will need to do a CT to rule out sinusitis and to rule out any kind of neurologic events of the other issue she has have a chest x-ray we need to look at that we did give her some blood cultures give her fluid treat her with a sliding scale and see how she responds I do not think she needs a insulin infusion at this time. She should clear mainly with fluids we will repeat those studies again in the morning. We will need to do a renal ultrasound at some point Current Visit: No (2) Dehydration Status: Resolved Current Visit: No (3) Renal insufficiency Status: Acute Current Visit: No History of Present Illness Chief complaint: Acute hyperglycemia History of present illness: Ms. Dorado is a 41 year old female who presents with a 2 day history of polyuria or polyphagia and blurry vision with a blood sugar of 492 she denies nausea vomiting chills diarrhea there is no real infectious symptoms she takes 70 3040 in the morning 20 at night she says she has been very compliant with her diet she has been running in the low 400s for the last several months and is not she has not had a change by her current doctor at this time she is not having chest pain or chest tightness. Does complain of the headache Workup in the ER shows a hematocrit of 34 glucose of 757 sodium 134 urinalysis is unremarkable except 2 white blood cells per high-powered field creatinine 3.9 Home Medications Medication Instructions Recorded Confirmed Type buPROPion HCl [Wellbutrin Sr] 200 mg PO BID@05/16/15 01/25/17 History ARIPiprazole [Aripiprazole] 20 mg PO DAILY 12/01/15 01/25/17 History Latanoprost [Latanoprost 0.005 % 1 drop BOTH EYES BEDTIME 04/06/16 01/25/17 History Oph Soln] Pravastatin [Pravachol] 20 mg PO BEDTIME 04/06/16 01/25/17 History Carvedilol [Coreg] 25 mg PO BID #60 tablet 04/10/16 01/25/17 Rx Ferrous Sulfate Tab [Feosol 325 mg PO BID 10/26/16 01/25/17 History Original Tab] Insulin Lispro Prot/Lisp 75/25 20 unit SUBCUT AC SUPPER 10/26/16 01/25/17 History [HumaLOG Mix 75/25] Insulin Lispro Prot/Lisp 75/25 40 unit SUBCUT AC BREAKFAST 10/26/16 01/25/17 History [HumaLOG Mix 75/25] Furosemide Tab [Lasix Tab] 80 mg PO TID 01/25/17 01/25/17 History Potassium Chloride [Klor-Con M20] 20 meq PO DAILY 01/25/17 01/25/17 History hydrALAZINE TAB [Apresoline Tab] 100 mg PO TID 01/25/17 01/25/17 History hydroCHLOROthiazide 25 mg PO QID 01/25/17 01/25/17 History [Hydrochlorothiazide] Allergies Allergy/AdvReac Type Severity Reaction Status Date / Time No Known Allergies Allergy Verified 01/25/17 18:49 Medical,Surgical,& Family Hx - Medical History Cardio: History of: Hypertension Psychological: History of: Anxiety Disorders, Depression, Previous Suicide Attempt Neurology: History of: Seizures HEENT: History of: 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), Glaucoma Endocrine: History of: Diabetes Mellitus (IDDM), Dyslipidemia Respiratory: History of: Obstructive Sleep Apnea (C PAP AT BED TIME SINCE 10/18) , Pneumonia (5 YRS AGO) Renal: History of: Renal Problems Genitourinary: History of: Recurring Urinary Tract Infections - Surgical History Cardiac Surgeries: Patient Denies: Cardiac Catheterization HEENT Surgeries: Patient denies: Thyroid Surgery - Family History Family History: Reports;: Family Diabetes (GM X2, PAT AUNT X3), Family Hypertension (MOM,DAD) Denies;: Family Cancer, Family Heart Disease, Family Psychiatric Problems, Family Stroke - Social History Smoking Status: Never smoker Frequency of Alcohol Use: None Type of Drug Use: None Review of systems: Constitutional: No fatigue or fever Eyes: No loss of vision or blurred vision Ears: No decreased hearing no ear pain Mouth no lip swelling or sore throat Cardiovascular no chest pain no claudication Respiratory no cough or shortness of breath GI no abdominal pain or bloating or bleeding : No urinary frequency or hesitancy musculoskeletal: No Arthralgias or back pain Psychiatric: Confusion memory loss Endocrine: No polydipsia or polyuria Hematology: No easy bleeding or bruising, patient has a headache 12 point review of systems otherwise unremarkable Exam - Constitutional Vitals: Period Temp Pulse Resp BP Sys/Marti Pulse Ox Last 24 Hr 97.9 F-97.9 F 90-90 16-18 187-187/105-105 98 Exam: Constitutional: Patient in no apparent distress. Eyes: Conjunctivae and lids are normal Pupils equal round react to light and accommodation irises are normal HEENT: External ears and nose without lesions masses or scarring Oropharynx without erythema exudates or thrush Neck is supple without masses no jugular venous distention Lungs: Lungs are clear to auscultation and resonant percussion Cardiovascular: Heart auscultation regular rate and rhythm without murmur rub or gallop PMI in the midclavicular line by palpation carotid arteries 2+ without bruits bowel abdomen: Bowel sounds normoactive no masses no rebound or regular tenderness no organomegaly Lymphatic: No anterior posterior cervical or axillary adenopathy Musculoskeletal: No active synovitis no malalignment of the joints good range of motion of upper and lower extremities Skin : normal to inspection and palpation Neurologic: Cranial nerves II through XII intact motor sensory intact DTRs 2+ negative cerebellar signs Psychiatric: Oriented to person place and time normal memory normal mood and affect normal judgment Results - Labs CBC & BMP: 01/25/17 19:02 01/25/17 19:02
[2017-01-25] MEDS ORDERED: GLUCAGON 1 MG VIAL IM PRN (20:35)
[2017-01-25] MEDS ORDERED: DEXTROSE 50% 25 GM/50 ML SYRINGE IV PRN (20:35)
[2017-01-25] MEDS ORDERED: ONDANSETRON 4 MG/2 ML VIAL IV PRN (20:35)
--- NOTE | 2017-01-25 21:06 | XRay Report ---
XR chest 1V portable Indication: Shortness of breath. Chest one view: Comparison 10/27/2016. Heart size has decreased in the previous exam but remains mildly enlarged. There is only minimal central pulmonary vascular congestion, also significantly improved from the prior exam. Lungs are hypoinflated with bibasilar atelectasis. Impression: Mild cardiomegaly. Pulmonary hypoinflation with central pulmonary vascular crowding. PROCEDURE INTERPRETED AT [facility] DEPARTMENT OF RADIOLOGY Final Report Signed by: John Zhou M.D.
[2017-01-25 21:08] LABS: Troponin I Only 0.446 NG/ML (0.00-0.045)
[2017-01-25] MEDS: INSULIN REGULAR 100 UNIT/ML SUBCUT SCH (22:21)
[2017-01-25] MEDS: LATANOPROST 0.005% OPH SOLN 2.5 ML BOTTLE BOTH EYES SCH (22:22)
[2017-01-25] MEDS: CARVEDILOL 25 MG TABLET PO SCH (22:22)
[2017-01-25] MEDS: FERROUS SULFATE 325 MG TABLET PO SCH (22:22)
[2017-01-25] MEDS: cefTRIAXone 1,000 MG in SODIUM CHLORIDE 0.9% 100 ML IV SCH (22:25)
--- NOTE | 2017-01-26 01:39 | EKG Report ---
Stationary ECG Study [facility] ER Test Date: 01/25/2017 9:04:05 PM Pat Name: JANESSA RUCKER Department: Room: 242 Gender: F [employer]: : 1975 Requested by: Kevin Hamilton Order Number: [id number] Reading MD: YUE VALERA Intervals [place] Rate: 84 P: 71 DC: 175 QRS: 50 QRSD: 94 T: 53 QT: 399 QTc: 440 Interpretive Statements SINUS RHYTHM LEFT ATRIAL ABNORMALITY NONSPECIFIC T-WAVE ABNORMALITY Electronically Signed On 01-26-17 16:02:16 CDT by YUE VALERA [email or web address]
[2017-01-26 05:30] LABS: Basophils % 0.6 % (0.0-0.8); Eosinophils # 0.1 10*3/uL (0.0-0.87); Eosinophils % 1.2 % (0.00-10.9); Hematocrit 34.8 VOL% (35.7-47.0); Hemoglobin 11.3 GM/DL (12.0-16.0); Immature Granulocytes % 0.3 %; Immature Granulocytes Absolute 0.02 #; Lymphocytes # 1.9 10*3/uL (1.4-4.0); Lymphocytes % 29.7 % (21.3-54.2); Mean Corpuscular HGB Conc 32.5 GM/DL (32-36); Mean Corpuscular Hemoglobin 26 PG (27-34); Mean Corpuscular Volume 80.4 FL (87-102); Mean Platelet Volume 10.8 FL (9.6-12.0); Monocytes # 0.5 10*3/uL (0.11-0.8); Monocytes % 7.8 % (1.7-12.7); Neutrophils # 3.9 10*3/uL (1.4-7.4); Neutrophils % 60.4 % (38.7-73.9); Platelet Count 253 T/CUMM (130-400); Red Blood Count 4.33 MC/CUMM (3.8-5.5); Red Cell Distribution Width 15.9 % (9.3-17.3); White Blood Count 6.4 T/CUMM (4-12)
[2017-01-26 06:08] LABS: Albumin 2.1 G/DL (3.4-5.0); Bilirubin,Total 0.6 MG/DL (0.2-1.0); Calcium 7.9 MG/DL (8.5-10.1); Osmolality,Calculated 300.8 MOS/KG (273-304); Potassium 3.5 MMOL/L (3.5-5.1); Total Protein 5.1 G/DL (6.4-8.3); Troponin I Only 0.465 NG/ML (0.00-0.045)
--- NOTE | 2017-01-26 06:48 | Ultrasound Report ---
History is diabetes Right kidney is 8.7 cm in length Left kidney is 8.3 cm in length. The left kidney not well seen secondary to overlying bowel gas Renal cortical echogenicity is normal No hydronephrosis seen bilaterally There is arterial flow to both kidneys Impression: No acute pathology seen PROCEDURE INTERPRETED AT [facility] [place] DEPARTMENT OF RADIOLOGY Final Report Signed by: Dr. Sarah Martinez
[2017-01-26] MEDS: FERROUS SULFATE 325 MG TABLET PO SCH ×2 (08:16→21:08)
[2017-01-26] MEDS: CARVEDILOL 25 MG TABLET PO SCH ×2 (08:16→21:08)
[2017-01-26] MEDS: buPROPion SR 100 MG TABLET PO SCH ×2 (08:16→14:28)
[2017-01-26] MEDS: ACETAMINOPHEN 325 MG TABLET PO PRN (08:16)
[2017-01-26] MEDS: ARIPiprazole 10 MG TABLET PO SCH (08:16)
[2017-01-26] MEDS: INSULIN REGULAR 100 UNIT/ML SUBCUT SCH ×4 (08:17→22:15)
[2017-01-26] MEDS: PANTOPRAZOLE 40 MG TABLET PO SCH (08:17)
--- NOTE | 2017-01-26 10:15 | Hospitalist Progress Note ---
Assessment and Plan (1) Dehydration Status: Resolved Assessment and plan: She continues to receive intravenous normal saline. Current Visit: No (2) Renal insufficiency Status: Acute Assessment and plan: Today her BUN is 50 and creatinine 3.4. It is unclear how much of her renal insufficiency is acute versus chronic. I will continue intravenous normal saline infusion. Current Visit: No (3) Diabetic hyperosmolar non-ketotic state Status: Resolved Assessment and plan: Blood glucose today is 130. I will continue her present medication. Current Visit: No Hospitalist: Subjective Interval history: Patient feels much better today. Her blood glucose on admission was 757. It is 130 this morning. She states that she has been compliant with her insulin. She notes that her blood glucoses have generally been in the low 400s. While there was no obvious source of infection, she was begun yesterday on intravenous ceftriaxone. He continues to demonstrate evidence of renal insufficiency, which may well be secondary to dehydration from her hyperglycemia. She continues to receive intravenous normal saline. Exam - Constitutional Vitals: Period Temp Pulse Resp BP Sys/Marti Pulse Ox Last 24 Hr 97.3 F-98.2 F 79-90 16-22 131-187/76-105 95-99 General appearance: no acute distress - Head Head exam: Present: normal inspection - Neck Neck exam: Present: normal inspection - Respiratory Respiratory exam: Present: clear to auscultation bilaterally - Cardiovascular Cardiovascular exam: Present: regular rate and rhythm - GI/Abdominal GI/Abdominal exam: Present: normal bowel sounds, soft, other (Nontender with no palpable masses or hepatosplenomegaly.) - Extremities Exam Extremities exam: Present: normal inspection - Neurological Exam Neurological exam: Present: alert - Psychiatric Psychiatric exam: Present: normal affect, normal mood - Skin Skin exam: Present: normal color, warm, intact Results - Labs CBC & BMP: 01/26/17 04:49 01/26/17 04:49
[2017-01-26 13:58] LABS: Troponin I Only 0.493 NG/ML (0.00-0.045)
[2017-01-26] MEDS: SODIUM CHLORIDE 0.45% 1,000 ML IV SCH ×3 (14:57→22:17)
[2017-01-26] MEDS ORDERED: INSULIN LISPRO PROTAMINE/LISPRO 75/25 100 UNIT/ML SUBCUT SCH (16:30)
[2017-01-26] MEDS: cefTRIAXone 1,000 MG in SODIUM CHLORIDE 0.9% 100 ML IV SCH (21:07)
[2017-01-26] MEDS: LATANOPROST 0.005% OPH SOLN 2.5 ML BOTTLE BOTH EYES SCH (21:08)
[2017-01-26] MEDS: PRAVASTATIN 20 MG TABLET PO SCH (21:08)
[2017-01-27 05:31] LABS: Basophils % 0.6 % (0.0-0.8); Eosinophils # 0.1 10*3/uL (0.0-0.87); Eosinophils % 1.5 % (0.00-10.9); Hemoglobin 11.1 GM/DL (12.0-16.0); Immature Granulocytes % 0.2 %; Immature Granulocytes Absolute 0.01 #; Lymphocytes # 1.5 10*3/uL (1.4-4.0); Mean Corpuscular HGB Conc 32.6 GM/DL (32-36); Mean Corpuscular Hemoglobin 26 PG (27-34); Mean Platelet Volume 10.7 FL (9.6-12.0); Monocytes # 0.3 10*3/uL (0.11-0.8); Monocytes % 6.2 % (1.7-12.7); Neutrophils # 2.8 10*3/uL (1.4-7.4); Neutrophils % 59.5 % (38.7-73.9); Platelet Count 226 T/CUMM (130-400); Red Cell Distribution Width 15.8 % (9.3-17.3); White Blood Count 4.7 T/CUMM (4-12)
[2017-01-27] MEDS: SODIUM CHLORIDE 0.45% 1,000 ML IV SCH ×3 (05:35→15:48)
[2017-01-27 06:16] LABS: Bilirubin,Total 0.6 MG/DL (0.2-1.0); Calcium 7.8 MG/DL (8.5-10.1); Osmolality,Calculated 301.8 MOS/KG (273-304); Potassium 3.5 MMOL/L (3.5-5.1); Total Protein 4.9 G/DL (6.4-8.3)
[2017-01-27] MEDS ORDERED: INSULIN LISPRO PROTAMINE/LISPRO 75/25 100 UNIT/ML SUBCUT SCH (07:30)
[2017-01-27] MEDS: FERROUS SULFATE 325 MG TABLET PO SCH ×2 (08:06→20:39)
[2017-01-27] MEDS: buPROPion SR 100 MG TABLET PO SCH ×2 (08:06→14:36)
[2017-01-27] MEDS: INSULIN REGULAR 100 UNIT/ML SUBCUT SCH ×4 (08:06→20:48)
[2017-01-27] MEDS: POTASSIUM CHLORIDE 20 MEQ TABLET PO SCH (08:07)
[2017-01-27] MEDS: CARVEDILOL 25 MG TABLET PO SCH ×2 (08:07→20:39)
[2017-01-27] MEDS: PANTOPRAZOLE 40 MG TABLET PO SCH (08:07)
--- NOTE | 2017-01-27 08:15 | Hospitalist Progress Note ---
Assessment and Plan - Time spent with patient Time spent with patient: Greater than 30 minutes (1) Dehydration Status: Resolved Current Visit: No (2) Diabetic hyperosmolar non-ketotic state Status: Resolved Current Visit: No (3) Hypertension Status: Acute Current Visit: No (4) Insulin dependent diabetes mellitus Status: Chronic Current Visit: No (5) Hyperglycemia due to type 2 diabetes mellitus Status: Acute Current Visit: No (6) ARF (acute renal failure) Status: Resolved Current Visit: No Qualifiers: Acute renal failure type: unspecified Qualified Code(s): N17.9 - Acute kidney failure, unspecified (7) Congestive heart failure Status: Acute Current Visit: No Qualifiers: Congestive heart failure type: diastolic Congestive heart failure chronicity: chronic Qualified Code(s): I50.32 - Chronic diastolic (congestive ) heart failure (8) Troponin level elevated Status: Acute Assessment and plan: We will resume her antihypertensive medication and monitor blood pressures. Adjust medication if her blood pressure is uncontrolled on her current meds. Since her blood sugars have improved, and blood pressure is elevated, will reduce the rate of IV fluids. We will up titrate her insulin doses and monitor fingerstick glucose. Continue her current sliding scale regimen. We will keep antibiotics for 1 more day and discontinue if there is no fever or any other signs of infection tomorrow. We will trend her troponin, if there is no improvement will probably obtain cardiology consult for completeness. DVT prophylaxis - Lovenox. Current Visit: Yes Hospitalist: Subjective Interval history: Admitted for hyperosmolar nonketotic state. Blood sugars are slightly better today. Uncontrolled blood pressure is reported with systolic blood pressures greater than 200. This was taken prior to her morning meds. She is on high doses of Coreg hydralazine. Elevated troponin noted, she however denies any chest pain or any previous heart disease. I reviewed her previous echocardiogram in October 2016, there were no wall motion abnormalities except hypertrophy probably related to chronic hypertension. She also has renal impairment and so that this may be responsible for elevated troponin. No fever, cultures have been negative. She does complain of mild blurring of vision which is likely due to hyperglycemic state. Exam - Constitutional Vitals: Period Temp Pulse Resp BP Sys/Marti Pulse Ox Last 24 Hr 97.4 F-98.7 F 71-86 18-20 112-238/81-116 95-99 Exam: General appearance: no acute distress - Head Head exam: Present: normal inspection - Neck Neck exam: Present: normal inspection - Respiratory Respiratory exam: Present: clear to auscultation bilaterally - Cardiovascular Cardiovascular exam: Present: regular rate and rhythm - GI/Abdominal GI/Abdominal exam: Present: normal bowel sounds, soft, other (Nontender with no palpable masses or hepatosplenomegaly.) - Extremities Exam Extremities exam: Present: normal inspection - Neurological Exam Neurological exam: Present: alert - Psychiatric Psychiatric exam: Present: normal affect, normal mood - Skin Skin exam: Present: normal color, warm, intact Results - Labs CBC & BMP: 01/27/17 05:16 01/27/17 05:16 Lab Results: I have reviewed the past 24 hour labs
[2017-01-27] MEDS: ARIPiprazole 10 MG TABLET PO SCH (08:48)
[2017-01-27] MEDS ORDERED: LABETALOL 20 MG/4 ML SYRINGE IV ONE (10:38)
[2017-01-27] MEDS: ACETAMINOPHEN 325 MG TABLET PO PRN (10:49)
[2017-01-27] MEDS: INSULIN LISPRO PROTAMINE/LISPRO 75/25 100 UNIT/ML SUBCUT SCH (16:42)
[2017-01-27] MEDS: PRAVASTATIN 20 MG TABLET PO SCH (20:39)
[2017-01-27] MEDS: LATANOPROST 0.005% OPH SOLN 2.5 ML BOTTLE BOTH EYES SCH (21:00)
[2017-01-28] MEDS: cefTRIAXone 1,000 MG in SODIUM CHLORIDE 0.9% 100 ML IV SCH (02:00)
[2017-01-28 06:06] LABS: Basophils % 0.6 % (0.0-0.8); Eosinophils # 0.1 10*3/uL (0.0-0.87); Eosinophils % 1.2 % (0.00-10.9); Hematocrit 34.6 VOL% (35.7-47.0); Hemoglobin 11.1 GM/DL (12.0-16.0); Immature Granulocytes % 0.3 %; Immature Granulocytes Absolute 0.02 #; Lymphocytes # 1.7 10*3/uL (1.4-4.0); Lymphocytes % 26.3 % (21.3-54.2); Mean Corpuscular HGB Conc 32.1 GM/DL (32-36); Mean Corpuscular Hemoglobin 26 PG (27-34); Mean Corpuscular Volume 80.8 FL (87-102); Mean Platelet Volume 10.8 FL (9.6-12.0); Monocytes # 0.5 10*3/uL (0.11-0.8); Monocytes % 6.9 % (1.7-12.7); Neutrophils # 4.2 10*3/uL (1.4-7.4); Neutrophils % 64.7 % (38.7-73.9); Platelet Count 247 T/CUMM (130-400); Red Blood Count 4.28 MC/CUMM (3.8-5.5); Red Cell Distribution Width 15.8 % (9.3-17.3); White Blood Count 6.5 T/CUMM (4-12)
[2017-01-28 06:28] LABS: Albumin 1.9 G/DL (3.4-5.0); Bilirubin,Total 0.4 MG/DL (0.2-1.0); Calcium 7.8 MG/DL (8.5-10.1); Potassium 3.5 MMOL/L (3.5-5.1); Total Protein 4.8 G/DL (6.4-8.3)
[2017-01-28 06:58] LABS: Risk Ratio 2.55
[2017-01-28] MEDS: ARIPiprazole 10 MG TABLET PO SCH (09:20)
[2017-01-28] MEDS: POTASSIUM CHLORIDE 20 MEQ TABLET PO SCH (09:20)
[2017-01-28] MEDS: PANTOPRAZOLE 40 MG TABLET PO SCH (09:20)
[2017-01-28] MEDS: FERROUS SULFATE 325 MG TABLET PO SCH ×2 (09:21→20:41)
[2017-01-28] MEDS: CARVEDILOL 25 MG TABLET PO SCH ×2 (09:22→20:41)
[2017-01-28] MEDS: buPROPion SR 100 MG TABLET PO SCH ×2 (09:22→15:15)
[2017-01-28] MEDS: INSULIN LISPRO PROTAMINE/LISPRO 75/25 100 UNIT/ML SUBCUT SCH ×2 (09:23→16:39)
[2017-01-28] MEDS: INSULIN REGULAR 100 UNIT/ML SUBCUT SCH ×4 (09:25→20:41)
--- NOTE | 2017-01-28 10:05 | Hospitalist Progress Note ---
Assessment and Plan - Time spent with patient Time spent with patient: Greater than 30 minutes (1) Dehydration Status: Resolved Current Visit: No (2) Diabetic hyperosmolar non-ketotic state Status: Resolved Current Visit: No (3) Hypertension Status: Acute Current Visit: No (4) Insulin dependent diabetes mellitus Status: Chronic Current Visit: No (5) Hyperglycemia due to type 2 diabetes mellitus Status: Acute Current Visit: No (6) ARF (acute renal failure) Status: Resolved Current Visit: No Qualifiers: Acute renal failure type: unspecified Qualified Code(s): N17.9 - Acute kidney failure, unspecified (7) Congestive heart failure Status: Acute Current Visit: No Qualifiers: Congestive heart failure type: diastolic Congestive heart failure chronicity: chronic Qualified Code(s): I50.32 - Chronic diastolic (congestive ) heart failure (8) Troponin level elevated Status: Acute Assessment and plan: We will continue her current antihypertensive medication and monitor blood pressures. We will monitor her on current insulin doses, monitor fingerstick glucose. Continue her current sliding scale regimen. We will discontinue antibiotics since there is no fever or any other signs of infection tomorrow. We will trend her troponin, and cardiology consult for evaluation plan for follow-up. We will need to start on statins for hyperlipidemia DVT prophylaxis - Lovenox. Current Visit: Yes Hospitalist: Subjective Interval history: She continues to improve. Blood sugars are in acceptable range. Episode of hypoglycemia last night noted. Serum creatinine is unchanged, she states that she is aware of her kidney disease and follows up with the police captain as outpatient. She does not complain of any chest pain, we will ask cardiology to evaluate her elevated troponin which I suspect may be due to chronic kidney disease but to be prudent to have nephrology evaluation and follow-up because of her risk factors. Exam - Constitutional Vitals: Period Temp Pulse Resp BP Sys/Marti Pulse Ox Last 24 Hr 97.2 F-98.2 F 76-96 18-22 172-198/84-110 93-97 Exam: General appearance: no acute distress - Head Head exam: Present: normal inspection - Neck Neck exam: Present: normal inspection - Respiratory Respiratory exam: Present: clear to auscultation bilaterally - Cardiovascular Cardiovascular exam: Present: regular rate and rhythm - GI/Abdominal GI/Abdominal exam: Present: normal bowel sounds, soft, other (Nontender with no palpable masses or hepatosplenomegaly.) - Extremities Exam Extremities exam: Present: normal inspection - Neurological Exam Neurological exam: Present: alert - Psychiatric Psychiatric exam: Present: normal affect, normal mood - Skin Skin exam: Present: normal color, warm, intact Results - Labs CBC & BMP: 01/28/17 05:38 01/28/17 05:38 Lab Results: I have reviewed the past 24 hour labs
[2017-01-28 10:58] LABS: Troponin I Only 0.624 NG/ML (0.00-0.045)
[2017-01-28] MEDS: SODIUM CHLORIDE 0.45% 1,000 ML IV SCH (15:20)
--- NOTE | 2017-01-28 18:29 | Cardiology Consult Note ---
Assessment and Plan (1) Troponin level elevated Status: Chronic Current Visit: Yes (2) Diabetic hyperosmolar non-ketotic state Status: Acute Current Visit: No (3) Hypertension Status: Chronic Current Visit: No (4) Renal insufficiency Status: Chronic Current Visit: No (5) Insulin dependent diabetes mellitus Status: Chronic Current Visit: No History of Present Illness - Data of Consult Patient: new to practice Consult date: 01/28/17 Requesting Physician: Roc Dumont - Consult Narrative Reason for consult: abnormal troponin History of present illness: Ms. Dorado is a 41 year old female without a prior cardiac history, with risk factors significant for hypertension, diabetes mellitus, hyperlipidemia. She has a previous history of medication noncompliance with hospitalizations for uncontrolled blood glucose and uncontrolled hypertension. At this point, she reports good compliance and effort. She came to the hospital because her blood sugars have been uncontrolled, and has been admitted and treated for extremely elevated blood sugars. Her blood pressure is uncontrolled and has been uncontrolled at home. She has no history of intolerance of any particular blood pressure medication. We are consulted for an elevated troponin. It is unclear to me why the troponin was checked. She denies any chest pain, shortness of breath, orthopnea , although she does get an occasional lower extremity edema. She has not had any presyncope or syncope. Her EKG does not show any acute changes. Her troponin has been chronically elevated in the same range for at least 2 years on my check. Her renal function has been steadily worsening during this time. She was hospitalized in October 2016 for "congestive heart failure" that was reported to be secondary to diastolic dysfunction and uncontrolled hypertension. Echocardiogram at that time demonstrated LVH and preserved systolic function, no significant valvular heart disease. Impression and plan: 1. Elevated troponin-this is nonspecific and likely related to her underlying renal insufficiency. She is not having any clinical symptoms consistent with an acute coronary syndrome. 2. Hyperglycemia-this is being treated by the hospitalist service. This is much improved. 3. Hypertension-this is uncontrolled. Calcium channel pablo has been added and increased. We will increase this again. We have discussed the paramount importance of blood pressure control and she will need close outpatient follow- up for this with her acting manager. 4. Renal insufficiency-this is chronic and has had a steady worsening. The patient does not appear to be having any acute cardiac issues. Please feel free to reconsult should any arise. CC: Roc Dumont MD - Home Medications and Allergies Home Medications: Home Medications Medication Instructions Recorded Confirmed Type buPROPion HCl [Wellbutrin Sr] 200 mg PO BID@05/16/15 01/25/17 History ARIPiprazole [Aripiprazole] 20 mg PO DAILY 12/01/15 01/25/17 History Latanoprost [Latanoprost 0.005 % 1 drop BOTH EYES BEDTIME 04/06/16 01/25/17 History Oph Soln] Pravastatin [Pravachol] 20 mg PO BEDTIME 04/06/16 01/25/17 History Carvedilol [Coreg] 25 mg PO BID #60 tablet 04/10/16 01/25/17 Rx Ferrous Sulfate Tab [Feosol 325 mg PO BID 10/26/16 01/25/17 History Original Tab] Insulin Lispro Prot/Lisp 75/25 20 unit SUBCUT AC SUPPER 10/26/16 01/25/17 History [HumaLOG Mix 75/25] Insulin Lispro Prot/Lisp 75/25 40 unit SUBCUT AC BREAKFAST 10/26/16 01/25/17 History [HumaLOG Mix 75/25] Furosemide Tab [Lasix Tab] 160 mg PO TID 01/25/17 01/25/17 History Potassium Chloride [Klor-Con M20] 20 meq PO DAILY 01/25/17 01/25/17 History hydrALAZINE TAB [Apresoline Tab] 100 mg PO TID 01/25/17 01/25/17 History Allergies/Adverse Reactions: Allergies Allergy/AdvReac Type Severity Reaction Status Date / Time No Known Allergies Allergy Verified 01/25/17 18:49 12 point system: reviewed and no additional remarkable complaints except as stated Medical,Surgical,& Family Hx - Medical History Cardio: History of: Hypertension Psychological: History of: Anxiety Disorders, Depression, Previous Suicide Attempt Neurology: History of: Seizures HEENT: History of: 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), Glaucoma Endocrine: History of: Diabetes Mellitus (IDDM) (type 1 diagnosed at 24yrs old) , Dyslipidemia Respiratory: History of: Obstructive Sleep Apnea (C PAP AT BED TIME SINCE 10/18) , Pneumonia (5 YRS AGO) Renal: History of: Renal Problems Genitourinary: History of: Recurring Urinary Tract Infections - Surgical History Cardiac Surgeries: Patient Denies: Cardiac Catheterization HEENT Surgeries: Patient denies: Thyroid Surgery - Family History Family History: Reports;: Family Diabetes (GM X2, PAT AUNT X3), Family Hypertension (MOM,DAD) Denies;: Family Cancer, Family Heart Disease, Family Psychiatric Problems, Family Stroke - Social History Smoking Status: Never smoker Frequency of Alcohol Use: None Type of Drug Use: None Functional capacity: independent ambulation Physical Examination Vital Signs Temp Pulse Resp BP Pulse Ox 97.9 F 90 16 187/105 98 01/25/17 18:44 01/25/17 18:44 01/25/17 18:44 01/25/17 18:44 01/25/17 18:44 Exam: General appearance: normal weight, no acute distress - Head Head exam: Present: normal inspection, normocephalic, atraumatic. Absent: hematoma, laceration - Eye Eye exam: Present: EOMI. Absent: conjunctival injection, nystagmus, periorbital swelling, scleral icterus, laceration to eyelids Pupils: Present: PERRL. Absent: constricted, dilated, fixed, irregular, unequal - ENT ENT exam: Present: normal exam, normal external ear exam - Neck Neck exam: Present: normal inspection. Absent: lymphadenopathy, meningismus, tenderness, thyromegaly - Respiratory Respiratory exam: Present: clear to auscultation bilaterally. Absent: accessory muscle use, chest wall tenderness - Cardiovascular Cardiovascular exam: Present: regular rate and rhythm with a 2/6 holosystolic murmur. Absent: carotid bruit, gallop, JVD, rubs - GI/Abdominal GI/Abdominal exam: Present: normal bowel sounds, soft. Absent: distended, firm , guarding, hernia, mass, tenderness, rebound. - Extremities Exam Extremities exam: Present: normal inspection, normal capillary refill. Absent: calf tenderness, edema - Back Exam Back exam: Present: normal inspection. Absent: muscle spasm, vertebral tenderness - Neurological Exam Neurological exam: Present: alert, oriented X3, grossly intact without resting or intention tremor - Psychiatric Psychiatric exam: Present: normal affect, normal mood - Skin Skin exam: Present: normal color, warm, dry, intact. Absent: cyanosis, diaphoretic, rash, urticaria Result/EKG - Labs CBC & BMP: 01/28/17 05:38 01/28/17 05:38 Lab Results: I have reviewed the past 24 hour labs Labs: Laboratory Results - last 24 hr 01/27/17 01/27/17 01/28/17 20:48 21:26 05:38 WBC RBC Hgb Hct MCV MCH MCHC RDW Plt Count MPV Neut % (Auto) Lymph % (Auto) Sawyer % (Auto) Eos % (Auto) Baso % (Auto) Neut # (Auto) Lymph # (Auto) Sawyer # (Auto) Eos # (Auto) Baso # (Auto) Immature Gran % Nucleated RBC % Immature Gran # Nucleated RBCs # Immature Plt Fraction Sodium Potassium Chloride Carbon Dioxide Anion Gap BUN Creatinine GFR Calculation BUN/Creatinine Ratio Glucose POC Glucose 51 L 116 H Hemoglobin A1c Calculated Osmolality Calcium Total Bilirubin AST ALT Alkaline Phosphatase Total Creatine Kinase Troponin I Total Protein Albumin Globulin Albumin/Globulin Ratio Triglycerides 65 Cholesterol 260 H LDL Cholesterol 126.0 VLDL Cholesterol 13.0 HDL Cholesterol 102 H Heart Disease Risk Ratio 2.55 01/28/17 01/28/17 01/28/17 05:38 05:38 05:38 WBC 6.5 D RBC 4.28 Hgb 11.1 L Hct 34.6 L MCV 80.8 L MCH 26 L MCHC 32.1 RDW 15.8 Plt Count 247 MPV 10.8 Neut % (Auto) 64.7 Lymph % (Auto) 26.3 Sawyer % (Auto) 6.9 Eos % (Auto) 1.2 Baso % (Auto) 0.6 Neut # (Auto) 4.2 Lymph # (Auto) 1.7 Sawyer # (Auto) 0.5 Eos # (Auto) 0.1 Baso # (Auto) 0.0 Immature Gran % 0.3 Nucleated RBC % 0.0 Immature Gran # 0.02 Nucleated RBCs # 0.00 Immature Plt Fraction 0.0 Sodium 143 Potassium 3.5 Chloride 111 H Carbon Dioxide 25 Anion Gap 10.5 BUN 35 H Creatinine 3.10 H GFR Calculation 25 BUN/Creatinine Ratio 11.00 Glucose 127 H POC Glucose Hemoglobin A1c 10.1 H Calculated Osmolality 294.0 Calcium 7.8 L Total Bilirubin 0.40 AST 16 ALT 17 Alkaline Phosphatase 106 Total Creatine Kinase Troponin I Total Protein 4.8 L Albumin 1.9 L Globulin 2.9 Albumin/Globulin Ratio 0.6 L Triglycerides Cholesterol LDL Cholesterol VLDL Cholesterol HDL Cholesterol Heart Disease Risk Ratio 01/28/17 01/28/17 01/28/17 07:48 10:10 11:52 WBC RBC Hgb Hct MCV MCH MCHC RDW Plt Count MPV Neut % (Auto) Lymph % (Auto) Sawyer % (Auto) Eos % (Auto) Baso % (Auto) Neut # (Auto) Lymph # (Auto) Sawyer # (Auto) Eos # (Auto) Baso # (Auto) Immature Gran % Nucleated RBC % Immature Gran # Nucleated RBCs # Immature Plt Fraction Sodium Potassium Chloride Carbon Dioxide Anion Gap BUN Creatinine GFR Calculation BUN/Creatinine Ratio Glucose POC Glucose 144 H 184 H Hemoglobin A1c Calculated Osmolality Calcium Total Bilirubin AST ALT Alkaline Phosphatase Total Creatine Kinase 131 Troponin I 0.624 H D Total Protein Albumin Globulin Albumin/Globulin Ratio Triglycerides Cholesterol LDL Cholesterol VLDL Cholesterol HDL Cholesterol Heart Disease Risk Ratio 01/28/17 15:52 WBC RBC Hgb Hct MCV MCH MCHC RDW Plt Count MPV Neut % (Auto) Lymph % (Auto) Sawyer % (Auto) Eos % (Auto) Baso % (Auto) Neut # (Auto) Lymph # (Auto) Sawyer # (Auto) Eos # (Auto) Baso # (Auto) Immature Gran % Nucleated RBC % Immature Gran # Nucleated RBCs # Immature Plt Fraction Sodium Potassium Chloride Carbon Dioxide Anion Gap BUN Creatinine GFR Calculation BUN/Creatinine Ratio Glucose POC Glucose 138 H Hemoglobin A1c Calculated Osmolality Calcium Total Bilirubin AST ALT Alkaline Phosphatase Total Creatine Kinase Troponin I Total Protein Albumin Globulin Albumin/Globulin Ratio Triglycerides Cholesterol LDL Cholesterol VLDL Cholesterol HDL Cholesterol Heart Disease Risk Ratio - Diagnostic Findings Procedure: Chest x-ray: report reviewed by me - EKG EKG results: interpreted by me, sinus rhythm, no acute changes
[2017-01-28] MEDS: LATANOPROST 0.005% OPH SOLN 2.5 ML BOTTLE BOTH EYES SCH (20:41)
[2017-01-28] MEDS: PRAVASTATIN 20 MG TABLET PO SCH (20:41)
[2017-01-29 08:56] VITALS: BP 161/96
[2017-01-29] MEDS: INSULIN LISPRO PROTAMINE/LISPRO 75/25 100 UNIT/ML SUBCUT SCH (09:56)
[2017-01-29] MEDS: POTASSIUM CHLORIDE 20 MEQ TABLET PO SCH (09:57)
[2017-01-29] MEDS: CARVEDILOL 25 MG TABLET PO SCH (09:57)
[2017-01-29] MEDS: buPROPion SR 100 MG TABLET PO SCH (09:57)
[2017-01-29] MEDS: PANTOPRAZOLE 40 MG TABLET PO SCH (09:57)
[2017-01-29] MEDS: FERROUS SULFATE 325 MG TABLET PO SCH (09:58)
[2017-01-29] MEDS: INSULIN REGULAR 100 UNIT/ML SUBCUT SCH ×2 (09:58→12:50)
[2017-01-29] MEDS: ARIPiprazole 10 MG TABLET PO SCH (10:01)
--- NOTE | 2017-01-29 10:33 | Discharge Summary ---
Hospital Course - Hospital Course Hospital Course: 41-year-old obese diabetic who presented with polyuria and polydipsia of 2 days duration prior to admission. She admits to poor compliance on medication and diet at home. She also reported headache, blurring of vision in the emergency room. During evaluation was found to have significantly elevated blood glucose greater than 700 on admission and hyponatremia which was suspected to be due to her elevated blood glucose. She was also found to have acute kidney injury suspected to be due to dehydration. She admits to no has a history of chronic kidney disease follows up with a audiovisual equipment operator as outpatient. She was evaluated with a CT scan of the brain which was negative, her chest x- ray was also negative so no obvious infective process was identified. Antibiotics which was initially started on admission was discontinued one stenosis of the infection was found and there was no fever. She was treated with IV fluid hydration, subcutaneous insulin despite initial suspicion of possible hyperosmolar state. Luckily she responded to subcutaneous insulin and IV hydration. Renal function also improved with creatinine trending down to 3.1 which she says might be her baseline. Her troponin was elevated on admission and continued to trend up despite not having any chest pain, we asked cardiology to evaluate and they cleared her with no acute coronary event and attributed her troponin elevation to her poor kidney function. Continue of discharge, she was pain-free. Blood sugars were looking better her current insulin regimen. Chest was clear Cardiovascular system was unremarkable. She is stable enough for discharge to outpatient follow-up with her primary care physician, nephrology and cardiology as outpatient. - Time spent with patient Time with patient DS: Greater than 30 minutes Diagnosis - Discharge Diagnosis (1) Dehydration Status: Resolved (2) Diabetic hyperosmolar non-ketotic state Status: Acute (3) Hypertension Status: Chronic (4) Insulin dependent diabetes mellitus Status: Chronic (5) Hyperglycemia due to type 2 diabetes mellitus Status: Acute (6) ARF (acute renal failure) Status: Resolved (7) Congestive heart failure Status: Acute (8) Troponin level elevated Status: Chronic Discharge Plan - Discharge Data Disposition: Disch To Home/Self Care Condition at Discharge: Stable Discharge Diet: advance to your usual diet, diabetic diet, low salt diet Activity: resume usual activities as tolerated Hygiene: no restrictions - Discharge Medications New Insulin Lispro Prot/Lisp 75/25 [HumaLOG Mix 75/25] 25 unit SUBCUT AC SUPPER unit Insulin Lispro Prot/Lisp 75/25 [HumaLOG Mix 75/25] 50 unit SUBCUT AC BREAKFAST unit NIFEdipine XL TAB [Procardia Xl] 90 mg PO DAILY #30 tablet Continue buPROPion HCl [Wellbutrin Sr] 200 mg PO BID@ ARIPiprazole [Aripiprazole] 20 mg PO DAILY Latanoprost [Latanoprost 0.005 % Oph Soln] 1 drop BOTH EYES BEDTIME Pravastatin [Pravachol] 20 mg PO BEDTIME Carvedilol [Coreg] 25 mg PO BID #60 tablet Furosemide Tab [Lasix Tab] 160 mg PO TID Potassium Chloride [Klor-Con M20] 20 meq PO DAILY Ferrous Sulfate Tab [Feosol Original Tab] 325 mg PO BID hydrALAZINE TAB [Apresoline Tab] 100 mg PO TID Discontinued Insulin Lispro Prot/Lisp 75/25 [HumaLOG Mix 75/25] 40 unit SUBCUT AC BREAKFAST Insulin Lispro Prot/Lisp 75/25 [HumaLOG Mix 75/25] 20 unit SUBCUT AC SUPPER - Follow Up or Referral - Forms/Instructions Additional Discharge Instructions: Follow-up with her primary audiovisual equipment operator as scheduled. Follow-up with cardiology clinic Exam - Constitutional Vitals: Period Temp Pulse Resp BP Sys/Marti Pulse Ox Last 24 Hr 97.2 F-98.1 F 85-98 16-20 154-188/79-96 94-98 Discharge Results Procedures and tests throughout hospitalization: Pending Orders 01/25/17 21:20 Blood Culture Stat Labs on day of discharge: Labs from last 24 hours 01/29/17 01/29/17 01/29/17 08:07 01:14 00:55 POC Glucose 168 H 79 54 L Total Creatine Kinase Troponin I 01/28/17 01/28/17 01/28/17 20:41 15:52 11:52 POC Glucose 82 138 H 184 H Total Creatine Kinase Troponin I 01/28/17 10:10 POC Glucose Total Creatine Kinase 131 Troponin I 0.624 H D Preliminary micro results at discharge 01/25/17 21:20 Blood Culture - Preliminary Blood No growth at 3 days 01/25/17 21:05 Blood Culture - Preliminary Blood No growth at 3 days DS: Provider Date of admission: 01/25/17 20:35 Primary care physician: Bret Santana Attending physician on admission: Kevin Hamilton MD Consults: 01/25/17 22:09 Consult to [facility], Educator [CONS] Routine Reason for Grant Administrator: Diabetes Education 01/28/17 09:59 Consult to Physician [CONS] Routine Comment: Diabetic in hyperosmolar state, ckd, elevated trop Consulting Provider: Fozia Larry Consult to Specialist Group: Cardiology When should Consulting Provider be notified: Now Person Notified: Jason Date Notified: 01/28/17 Time Notified: 12:07 Discharging clinician: Roc Dumont MD
== END 2017-01-29 12:50 | disposition home or self-care (01) | DRG 420 ==
LOC: N.ED 18:36 → SUATTDRO 20:35 → N.EDINP 20:35 → N.2E 21:12
PROVIDERS: ADMIT Internal Medicine Pulmonary Disease; ATTEND Internal Medicine

== ENCOUNTER 2017-11-10 04:55 | Inpatient (IN) ==
[2017-11-10] MEDS ORDERED: SODIUM CHLORIDE 0.9% 2,000 ML IV STA (05:16)
[2017-11-10] MEDS ORDERED: INSULIN REGULAR 100 UNIT/ML IV STA (05:18)
[2017-11-10 06:20] LABS: VBG Base Excess -11.9 MEQ/L (0-4); VBG HCO3 13.2 MEQ/L (24-28); VBG Oxygen Saturation 99.2 %; VBG PCO2 27.6 MMHG (41-51); VBG PH 7.296; VBG PO2 232.8 MMHG (17-40)
[2017-11-10 06:21] LABS: Basophils % 0.4 % (0.0-0.8); Hematocrit 35.9 VOL% (35.7-47.0); Hemoglobin 10.9 GM/DL (12.0-16.0); Immature Granulocytes % 0.4 %; Immature Granulocytes Absolute 0.03 #; Lymphocytes # 0.8 10*3/uL (1.4-4.0); Mean Corpuscular HGB Conc 30.4 GM/DL (32-36); Mean Corpuscular Hemoglobin 28 PG (27-34); Mean Corpuscular Volume 92.1 FL (87-102); Mean Platelet Volume 11.9 FL (9.6-12.0); Monocytes # 0.3 10*3/uL (0.11-0.8); Monocytes % 3.5 % (1.7-12.7); Neutrophils # 7.3 10*3/uL (1.4-7.4); Neutrophils % 86.7 % (38.7-73.9); Platelet Count 197 T/CUMM (130-400); Red Cell Distribution Width 13.1 % (9.3-17.3); White Blood Count 8.4 T/CUMM (4-12)
[2017-11-10 06:34] LABS: Albumin 3.1 G/DL (3.4-5.0); Bilirubin,Total 0.8 MG/DL (0.2-1.0); Calcium 8.2 MG/DL (8.5-10.1); Potassium 4.1 MMOL/L (3.5-5.1); Total Protein 7.3 G/DL (6.4-8.3)
[2017-11-10 07:38] LABS: Osmolality,Calculated 326.1 MOS/KG (273-304)
[2017-11-10] MEDS ORDERED: hydrALAZINE 20 MG/1 ML VIAL IV STA (07:48)
[2017-11-10] MEDS ORDERED: ONDANSETRON 4 MG/2 ML VIAL IV PRN (08:17)
[2017-11-10] MEDS ORDERED: GLUCAGON 1 MG VIAL IM PRN (08:17)
[2017-11-10] MEDS ORDERED: ALBUTEROL 2.5 MG/3 ML NEB RESP TX PRN (08:17)
[2017-11-10] MEDS ORDERED: ACETAMINOPHEN 325 MG TABLET PO PRN (08:17)
[2017-11-10] MEDS ORDERED: DEXTROSE 50% 25 GM/50 ML VIAL IV PRN ×2 (08:17→08:23)
[2017-11-10] MEDS ORDERED: SODIUM BICARB INJ 100 MEQ in STERILE WATER INJ 400 ML IV PRN (08:23)
[2017-11-10] MEDS ORDERED: SODIUM PHOSPHATE INJ 26.5 MMOL in SODIUM CHLORIDE 0.9% 250 ML IV PRN (08:23)
[2017-11-10] MEDS ORDERED: MAGNESIUM SULF RIDER 4 GM in PREMIX 1 EACH IV PRN (08:23)
[2017-11-10] MEDS ORDERED: MAGNESIUM SULF RIDER 2 GM in PREMIX 1 EACH IV PRN (08:23)
[2017-11-10] MEDS: PANTOPRAZOLE 40 MG VIAL IV SCH (09:16)
[2017-11-10 09:19] LABS: Apearance,Urine CLEAR (Clear); Bacteria,Urine Occasional /HPF (Few); Bilirubin,Urine Negative (Negative); Blood, Urine Small mg/dL (Negative); Glucose,Urine (UA) >=500 mg/dL (Negative); Ketones,Urine 20 mg/dL (Negative); Mucus,Urine Occasional /LPF (Occasional); Nitrite,Urine Negative (Negative); Protein,Urine 100 MG/DL; RBC,Urine 2 /HPF (0-4); Squamous Epithelial Cell,Urine Occasional /HPF (0-10); Urine Color Straw (Yellow); Urine Specific Gravity 1.011 (1.001-1.035); Urine Urobilinogen < 2.0 EU/DL (0.2-1.0); WBC,Urine 5 /HPF (0-6)
[2017-11-10] MEDS: INSULIN REGULAR DRIP 100 ML IV SCH ×2 (09:45→21:16)
[2017-11-10] MEDS: CARVEDILOL 25 MG TABLET PO SCH ×2 (09:58→21:52)
[2017-11-10] MEDS: FERROUS SULFATE 325 MG TABLET PO SCH ×2 (09:58→21:51)
[2017-11-10 10:30] LABS: Calcium 7.9 MG/DL (8.5-10.1); Osmolality,Calculated 325.5 MOS/KG (273-304)
[2017-11-10 12:57] LABS: Calcium 7.7 MG/DL (8.5-10.1); Osmolality,Calculated 323.4 MOS/KG (273-304); Potassium 3.4 MMOL/L (3.5-5.1)
[2017-11-10] MEDS: SODIUM CHLORIDE 0.9% 1,000 ML IV SCH (16:11)
[2017-11-10] MEDS: ARIPiprazole 10 MG TABLET PO SCH (16:11)
[2017-11-10] MEDS: ASPIRIN CHEW 81 MG TABLET PO SCH (16:33)
[2017-11-10] MEDS: hydrALAZINE 20 MG/1 ML VIAL IV PRN (17:01)
[2017-11-10] MEDS: buPROPion SR 100 MG TABLET PO SCH (17:33)
[2017-11-10 17:51] LABS: Osmolality,Calculated 314.5 MOS/KG (273-304); Potassium 3.5 MMOL/L (3.5-5.1)
[2017-11-10] MEDS: POTASSIUM CHLORIDE RIDER 10 MEQ in PREMIX 1 EACH IV PRN ×3 (18:09→20:54)
[2017-11-10] MEDS: ATORVASTATIN 10 MG TABLET PO SCH (21:52)
[2017-11-10] MEDS: ENOXAPARIN 30 MG/0.3 ML SYRINGE SUBCUT SCH (21:53)
[2017-11-10] MEDS: LATANOPROST 0.005% OPH SOLN 2.5 ML BOTTLE BOTH EYES SCH (21:57)
[2017-11-11 00:30] LABS: Osmolality,Calculated 307.5 MOS/KG (273-304); Potassium 3.4 MMOL/L (3.5-5.1)
[2017-11-11] MEDS ORDERED: SODIUM CHLORIDE 0.45% 1,000 ML IV SCH (01:24)
[2017-11-11] MEDS: hydrALAZINE 20 MG/1 ML VIAL IV PRN (01:47)
[2017-11-11] MEDS ORDERED: GLUCAGON 1 MG VIAL IM PRN (01:54)
[2017-11-11] MEDS ORDERED: DEXTROSE 50% 25 GM/50 ML VIAL IV PRN (01:54)
[2017-11-11] MEDS ORDERED: POTASSIUM CHLORIDE 20 MEQ TABLET PO ONE (02:00)
[2017-11-11] MEDS: SODIUM CHLORIDE 0.9% 1,000 ML IV SCH ×5 (02:14→17:46)
[2017-11-11 05:32] LABS: Basophils % 0.3 % (0.0-0.8); Hematocrit 31.6 VOL% (35.7-47.0); Hemoglobin 10.2 GM/DL (12.0-16.0); Immature Granulocytes % 0.3 %; Immature Granulocytes Absolute 0.04 #; Lymphocytes # 1.4 10*3/uL (1.4-4.0); Lymphocytes % 11.3 % (21.3-54.2); Mean Corpuscular HGB Conc 32.3 GM/DL (32-36); Mean Corpuscular Hemoglobin 27 PG (27-34); Mean Corpuscular Volume 84.5 FL (87-102); Mean Platelet Volume 11.4 FL (9.6-12.0); Monocytes # 0.6 10*3/uL (0.11-0.8); Monocytes % 4.6 % (1.7-12.7); Neutrophils # 10.4 10*3/uL (1.4-7.4); Neutrophils % 83.5 % (38.7-73.9); Platelet Count 241 T/CUMM (130-400); Red Blood Count 3.74 MC/CUMM (3.8-5.5); Red Cell Distribution Width 12.6 % (9.3-17.3); White Blood Count 12.4 T/CUMM (4-12)
[2017-11-11 06:00] LABS: Osmolality,Calculated 313.5 MOS/KG (273-304); Potassium 3.6 MMOL/L (3.5-5.1)
[2017-11-11 06:10] LABS: Albumin 2.3 G/DL (3.4-5.0); Bilirubin,Total 0.6 MG/DL (0.2-1.0); Calcium 7.9 MG/DL (8.5-10.1); Osmolality,Calculated 315.4 MOS/KG (273-304); Potassium 3.7 MMOL/L (3.5-5.1); Risk Ratio 2.5; Thyroid Stimulating Hormone 2.28 uIU/ml (0.358-3.74); VLDL CHOLESTEROL 19.6 MG/DL
[2017-11-11] MEDS ORDERED: INSULIN REGULAR 100 UNIT/ML IV ONE (06:30)
[2017-11-11] MEDS ORDERED: INSULIN REGULAR DRIP 100 ML IV PRN (07:30)
[2017-11-11] MEDS ORDERED: INSULIN LISPRO 100 UNIT/ML SUBCUT SCH (07:30)
[2017-11-11 08:29] LABS: Calcium 8.1 MG/DL (8.5-10.1); Osmolality,Calculated 314.7 MOS/KG (273-304); Potassium 3.3 MMOL/L (3.5-5.1)
[2017-11-11] MEDS: ASPIRIN CHEW 81 MG TABLET PO SCH (08:54)
[2017-11-11] MEDS: ARIPiprazole 10 MG TABLET PO SCH (08:54)
[2017-11-11] MEDS: FERROUS SULFATE 325 MG TABLET PO SCH ×2 (08:55→20:13)
[2017-11-11] MEDS: CARVEDILOL 25 MG TABLET PO SCH ×2 (08:55→21:26)
[2017-11-11] MEDS: buPROPion SR 100 MG TABLET PO SCH ×2 (08:55→15:22)
[2017-11-11] MEDS: POTASSIUM CHLORIDE RIDER 10 MEQ in PREMIX 1 EACH IV PRN (08:55)
[2017-11-11] MEDS: PANTOPRAZOLE 40 MG VIAL IV SCH (08:55)
[2017-11-11] MEDS ORDERED: INSULIN REGULAR 100 UNIT/ML SUBCUT SCH (10:00)
[2017-11-11] MEDS: POTASSIUM CHLORIDE 20 MEQ TABLET PO SCH (10:29)
[2017-11-11] MEDS: cloNIDine 0.1 MG TABLET PO SCH ×2 (10:29→20:13)
[2017-11-11 12:59] LABS: Osmolality,Calculated 312.3 MOS/KG (273-304); Potassium 3.6 MMOL/L (3.5-5.1)
[2017-11-11 16:34] LABS: Calcium 7.8 MG/DL (8.5-10.1); Potassium 3.9 MMOL/L (3.5-5.1)
[2017-11-11] MEDS: INSULIN LISPRO PROTAMINE/LISPRO 75/25 100 UNIT/ML SUBCUT SCH (18:07)
[2017-11-11] MEDS: INSULIN REGULAR 100 UNIT/ML SUBCUT SCH (20:08)
[2017-11-11] MEDS: ENOXAPARIN 30 MG/0.3 ML SYRINGE SUBCUT SCH (20:13)
[2017-11-11] MEDS: LATANOPROST 0.005% OPH SOLN 2.5 ML BOTTLE BOTH EYES SCH (20:16)
[2017-11-11] MEDS: ATORVASTATIN 10 MG TABLET PO SCH (21:27)
[2017-11-12] MEDS: INSULIN REGULAR 100 UNIT/ML SUBCUT SCH ×6 (00:21→21:25)
[2017-11-12] MEDS: hydrALAZINE 20 MG/1 ML VIAL IV PRN (00:22)
[2017-11-12] MEDS: SODIUM CHLORIDE 0.9% 1,000 ML IV SCH ×6 (00:25→21:30)
[2017-11-12 05:45] LABS: Basophils % 0.3 % (0.0-0.8); Hematocrit 30.3 VOL% (35.7-47.0); Immature Granulocytes % 0.1 %; Immature Granulocytes Absolute 0.01 #; Lymphocytes # 2.1 10*3/uL (1.4-4.0); Lymphocytes % 31.3 % (21.3-54.2); Mean Corpuscular Hemoglobin 28 PG (27-34); Mean Corpuscular Volume 83.7 FL (87-102); Mean Platelet Volume 11.1 FL (9.6-12.0); Monocytes # 0.4 10*3/uL (0.11-0.8); Monocytes % 6.3 % (1.7-12.7); Neutrophils # 4.1 10*3/uL (1.4-7.4); Platelet Count 233 T/CUMM (130-400); Red Blood Count 3.62 MC/CUMM (3.8-5.5); Red Cell Distribution Width 13.5 % (9.3-17.3); White Blood Count 6.7 T/CUMM (4-12)
[2017-11-12 06:17] LABS: Calcium 7.7 MG/DL (8.5-10.1); Osmolality,Calculated 310.7 MOS/KG (273-304); Potassium 3.7 MMOL/L (3.5-5.1)
[2017-11-12] MEDS: buPROPion SR 100 MG TABLET PO SCH ×2 (08:27→15:44)
[2017-11-12] MEDS: POTASSIUM CHLORIDE 20 MEQ TABLET PO SCH (08:27)
[2017-11-12] MEDS: cloNIDine 0.1 MG TABLET PO SCH ×3 (08:27→21:12)
[2017-11-12] MEDS: INSULIN LISPRO PROTAMINE/LISPRO 75/25 100 UNIT/ML SUBCUT SCH ×2 (08:28→17:12)
[2017-11-12] MEDS: CARVEDILOL 25 MG TABLET PO SCH ×2 (08:28→21:12)
[2017-11-12] MEDS: FERROUS SULFATE 325 MG TABLET PO SCH ×2 (08:28→21:12)
[2017-11-12] MEDS: ASPIRIN CHEW 81 MG TABLET PO SCH (08:28)
[2017-11-12] MEDS: PANTOPRAZOLE 40 MG VIAL IV SCH (08:29)
[2017-11-12] MEDS: ARIPiprazole 10 MG TABLET PO SCH (08:32)
[2017-11-12] MEDS: ENOXAPARIN 30 MG/0.3 ML SYRINGE SUBCUT SCH (21:12)
[2017-11-12] MEDS: ATORVASTATIN 10 MG TABLET PO SCH (21:12)
[2017-11-12] MEDS: LATANOPROST 0.005% OPH SOLN 2.5 ML BOTTLE BOTH EYES SCH (21:26)
[2017-11-13] MEDS: INSULIN REGULAR 100 UNIT/ML SUBCUT SCH ×3 (01:01→09:53)
[2017-11-13] MEDS: SODIUM CHLORIDE 0.9% 1,000 ML IV SCH (05:25)
[2017-11-13 05:58] LABS: Calcium 7.2 MG/DL (8.5-10.1); Osmolality,Calculated 309.6 MOS/KG (273-304); Potassium 3.8 MMOL/L (3.5-5.1)
[2017-11-13 07:45] VITALS: BP 131/69
[2017-11-13] MEDS: buPROPion SR 100 MG TABLET PO SCH (10:20)
[2017-11-13] MEDS: POTASSIUM CHLORIDE 20 MEQ TABLET PO SCH (10:21)
[2017-11-13] MEDS: CARVEDILOL 25 MG TABLET PO SCH (10:22)
[2017-11-13] MEDS: ASPIRIN CHEW 81 MG TABLET PO SCH (10:22)
[2017-11-13] MEDS: FERROUS SULFATE 325 MG TABLET PO SCH (10:22)
[2017-11-13] MEDS: cloNIDine 0.1 MG TABLET PO SCH (10:22)
[2017-11-13] MEDS: INSULIN LISPRO PROTAMINE/LISPRO 75/25 100 UNIT/ML SUBCUT SCH (10:23)
[2017-11-13] MEDS: PANTOPRAZOLE 40 MG VIAL IV SCH (10:23)
[2017-11-13] MEDS: ARIPiprazole 10 MG TABLET PO SCH (11:25)
== END 2017-11-13 11:00 | disposition home or self-care (01) | DRG 420 ==
LOC: N.ED 04:55 → N.EDINP 07:45 → N.ICU 14:22 → N.5E 11-12 18:06

== ENCOUNTER 2017-11-23 14:18 | Inpatient (IN) ==
[2017-11-23] MEDS ORDERED: LABETALOL 20 MG/4 ML SYRINGE IV STA (14:33)
[2017-11-23] MEDS ORDERED: INSULIN REGULAR 100 UNIT/ML SUBCUT STA (14:35)
[2017-11-23 15:16] LABS: Basophils % 0.5 % (0.0-0.8); Hematocrit 33.9 VOL% (35.7-47.0); Hemoglobin 10.9 GM/DL (12.0-16.0); Immature Granulocytes % 0.3 %; Immature Granulocytes Absolute 0.02 #; Lymphocytes # 1.8 10*3/uL (1.4-4.0); Lymphocytes % 24.3 % (21.3-54.2); Mean Corpuscular HGB Conc 32.2 GM/DL (32-36); Mean Corpuscular Hemoglobin 27 PG (27-34); Mean Corpuscular Volume 85.2 FL (87-102); Mean Platelet Volume 9.7 FL (9.6-12.0); Monocytes # 0.5 10*3/uL (0.11-0.8); Monocytes % 7.2 % (1.7-12.7); Neutrophils % 67.7 % (38.7-73.9); Platelet Count 381 T/CUMM (130-400); Red Blood Count 3.98 MC/CUMM (3.8-5.5); Red Cell Distribution Width 13.2 % (9.3-17.3); White Blood Count 7.3 T/CUMM (4-12)
[2017-11-23 15:35] LABS: Alanine Aminotransferase 26 U/L (13-56); Albumin 2.7 G/DL (3.4-5.0); Alkaline Phosphatase 178 U/L (45-117); Aspartate Amino Transferase 16 U/L (0-37); Bilirubin,Total < 0.39 MG/DL (0.2-1.0); Blood Urea Nitrogen 45 MG/DL (7-18); Glucose 252 MG/DL (74-106); Potassium 3.3 MMOL/L (3.5-5.1); Sodium 136 MMOL/L (136-145); Total Protein 7.6 G/DL (6.4-8.3)
[2017-11-23] MEDS ORDERED: LABETALOL 100 MG/20 ML VIAL IV ONE (15:40)
[2017-11-23] MEDS ORDERED: amLODIPine 5 MG TABLET PO STA (16:23)
[2017-11-23] MEDS ORDERED: DEXTROSE 50% 25 GM/50 ML VIAL IV PRN ×2 (16:48)
[2017-11-23] MEDS ORDERED: GLUCAGON 1 MG VIAL IM PRN ×2 (16:48)
[2017-11-23] MEDS: FERROUS SULFATE 325 MG TABLET PO SCH (20:26)
[2017-11-23] MEDS: CARVEDILOL 25 MG TABLET PO SCH (20:26)
[2017-11-23] MEDS: FUROSEMIDE 80 MG TABLET PO SCH (20:27)
[2017-11-23] MEDS: ATORVASTATIN 10 MG TABLET PO SCH (20:27)
[2017-11-23] MEDS: cloNIDine 0.1 MG TABLET PO SCH (20:27)
[2017-11-23] MEDS: INSULIN REGULAR 100 UNIT/ML SUBCUT SCH (21:15)
[2017-11-23] MEDS: LATANOPROST 0.005% OPH SOLN 2.5 ML BOTTLE BOTH EYES SCH (23:29)
[2017-11-24 05:18] LABS: Basophils % 0.4 % (0.0-0.8); Hematocrit 28.1 VOL% (35.7-47.0); Hemoglobin 9.3 GM/DL (12.0-16.0); Immature Granulocytes % 0.2 %; Immature Granulocytes Absolute 0.01 #; Lymphocytes # 1.4 10*3/uL (1.4-4.0); Lymphocytes % 25.5 % (21.3-54.2); Mean Corpuscular HGB Conc 33.1 GM/DL (32-36); Mean Corpuscular Hemoglobin 27 PG (27-34); Mean Corpuscular Volume 82.4 FL (87-102); Mean Platelet Volume 10.3 FL (9.6-12.0); Monocytes # 0.4 10*3/uL (0.11-0.8); Monocytes % 7.8 % (1.7-12.7); Neutrophils # 3.6 10*3/uL (1.4-7.4); Neutrophils % 66.1 % (38.7-73.9); Platelet Count 370 T/CUMM (130-400); Red Blood Count 3.41 MC/CUMM (3.8-5.5); Red Cell Distribution Width 13.2 % (9.3-17.3); White Blood Count 5.5 T/CUMM (4-12)
[2017-11-24 05:52] LABS: Alanine Aminotransferase 19 U/L (13-56); Albumin 2.3 G/DL (3.4-5.0); Alkaline Phosphatase 149 U/L (45-117); Aspartate Amino Transferase 8 U/L (0-37); Bilirubin,Total < 0.39 MG/DL (0.2-1.0); Blood Urea Nitrogen 51 MG/DL (7-18); Calcium 7.4 MG/DL (8.5-10.1); Glucose 410 MG/DL (74-106); Osmolality,Calculated 305.7 MOS/KG (273-304); Potassium 3.4 MMOL/L (3.5-5.1); Sodium 138 MMOL/L (136-145); Total Protein 5.9 G/DL (6.4-8.3)
[2017-11-24] MEDS: INSULIN LISPRO PROTAMINE/LISPRO 75/25 100 UNIT/ML SUBCUT SCH ×3 (07:30→17:15)
[2017-11-24] MEDS: SODIUM CHLORIDE 0.9% 1,000 ML IV SCH ×2 (07:30→21:17)
[2017-11-24] MEDS: ARIPiprazole 10 MG TABLET PO SCH (08:48)
[2017-11-24] MEDS: FERROUS SULFATE 325 MG TABLET PO SCH ×2 (08:48→21:08)
[2017-11-24] MEDS: CARVEDILOL 25 MG TABLET PO SCH ×2 (08:48→21:08)
[2017-11-24] MEDS: POTASSIUM CHLORIDE 20 MEQ TABLET PO SCH (08:48)
[2017-11-24] MEDS: buPROPion SR 100 MG TABLET PO SCH ×2 (08:48→14:51)
[2017-11-24] MEDS: cloNIDine 0.1 MG TABLET PO SCH ×3 (08:48→21:08)
[2017-11-24] MEDS: FUROSEMIDE 80 MG TABLET PO SCH ×3 (08:49→21:07)
[2017-11-24] MEDS: INSULIN REGULAR 100 UNIT/ML SUBCUT SCH ×4 (08:53→21:08)
[2017-11-24] MEDS ORDERED: amLODIPine 10 MG TABLET PO SCH (09:00)
[2017-11-24] MEDS: ATORVASTATIN 10 MG TABLET PO SCH (21:08)
[2017-11-24] MEDS: LATANOPROST 0.005% OPH SOLN 2.5 ML BOTTLE BOTH EYES SCH (21:09)
[2017-11-25] MEDS: INSULIN LISPRO PROTAMINE/LISPRO 75/25 100 UNIT/ML SUBCUT SCH (08:35)
[2017-11-25] MEDS: INSULIN REGULAR 100 UNIT/ML SUBCUT SCH ×2 (08:36→13:12)
[2017-11-25] MEDS: buPROPion SR 100 MG TABLET PO SCH (09:45)
[2017-11-25] MEDS: ARIPiprazole 10 MG TABLET PO SCH (09:46)
[2017-11-25] MEDS: SODIUM CHLORIDE 0.9% 1,000 ML IV SCH (09:47)
[2017-11-25] MEDS: cloNIDine 0.1 MG TABLET PO SCH (09:47)
[2017-11-25] MEDS: CARVEDILOL 25 MG TABLET PO SCH (09:48)
[2017-11-25] MEDS: FERROUS SULFATE 325 MG TABLET PO SCH (09:48)
[2017-11-25] MEDS: POTASSIUM CHLORIDE 20 MEQ TABLET PO SCH (09:48)
[2017-11-25] MEDS: FUROSEMIDE 80 MG TABLET PO SCH (09:50)
[2017-11-25 11:13] LABS: Apearance,Urine CLEAR (Clear); Bilirubin,Urine Negative (Negative); Blood, Urine Moderate mg/dL (Negative); Glucose,Urine (UA) >=500 mg/dL (Negative); Ketones,Urine Negative (Negative); Nitrite,Urine Negative (Negative); Protein,Urine 100 MG/DL; RBC,Urine 17 /HPF (0-4); Squamous Epithelial Cell,Urine Occasional /HPF (0-10); Urine Color Straw (Yellow); Urine Specific Gravity 1.008 (1.001-1.035); Urine Urobilinogen < 2.0 EU/DL (0.2-1.0); WBC,Urine 13 /HPF (0-6)
[2017-11-25 11:26] VITALS: BP 142/82
[2017-11-25 11:31] LABS: Creatinine,Urine Random 46 MG/DL; Total Protein,Urine Random 168 MG/DL; Urea Nitrogen, Urine Random 279 MG/DL
== END 2017-11-25 13:35 | disposition home or self-care (01) | DRG 199 ==
LOC: N.ED 14:18 → N.EDINP 16:07 → SUATTDRO 16:07 → N.TELEN 16:51
PROVIDERS: ADMIT Internal Medicine; ATTEND Internal Medicine

== ENCOUNTER 2018-05-25 06:57 | Inpatient (IN) ==
[2018-05-25] MEDS ORDERED: hydrALAZINE 20 MG/1 ML VIAL IV STA (07:41)
[2018-05-25] MEDS ORDERED: FUROSEMIDE 100 MG/10 ML VIAL IV STA (07:41)
[2018-05-25 08:05] LABS: Basophils % 0.4 % (0.0-0.8); Hematocrit 34.1 VOL% (35.7-47.0); Hemoglobin 10.5 GM/DL (12.0-16.0); Immature Granulocytes % 0.4 %; Immature Granulocytes Absolute 0.04 #; Lymphocytes # 1.2 10*3/uL (1.4-4.0); Mean Corpuscular HGB Conc 30.8 GM/DL (32-36); Mean Corpuscular Hemoglobin 27 PG (27-34); Mean Corpuscular Volume 87.4 FL (87-102); Monocytes # 0.5 10*3/uL (0.11-0.8); Monocytes % 5.5 % (1.7-12.7); Neutrophils # 7.2 10*3/uL (1.4-7.4); Neutrophils % 80.7 % (38.7-73.9); Platelet Count 273 T/CUMM (130-400); Red Cell Distribution Width 14.1 % (9.3-17.3)
[2018-05-25 08:28] LABS: Alanine Aminotransferase 26 U/L (13-56); Albumin 2.7 G/DL (3.4-5.0); Alkaline Phosphatase 204 U/L (45-117); Aspartate Amino Transferase 21 U/L (0-37); Bilirubin,Total < 0.39 MG/DL (0.2-1.0); Blood Urea Nitrogen 80 MG/DL (7-18); Calcium 8.2 MG/DL (8.5-10.1); Glucose 484 MG/DL (74-106); Osmolality,Calculated 321.5 MOS/KG (273-304); Potassium 3.8 MMOL/L (3.5-5.1); Sodium 139 MMOL/L (136-145); Total Protein 7.1 G/DL (6.4-8.3)
[2018-05-25 08:45] LABS: Apearance,Urine Slightly Hazy (Clear); Bacteria,Urine Occasional /HPF (Few); Bilirubin,Urine Negative (Negative); Blood, Urine Moderate mg/dL (Negative); Glucose,Urine (UA) >=500 mg/dL (Negative); Ketones,Urine Negative (Negative); Mucus,Urine Occasional /LPF (Occasional); Nitrite,Urine Negative (Negative); Protein,Urine 100 MG/DL; RBC,Urine 6 /HPF (0-4); Squamous Epithelial Cell,Urine Occasional /HPF (0-10); Urine Color Yellow (Yellow); Urine Specific Gravity 1.013 (1.001-1.035); Urine Urobilinogen < 2.0 EU/DL (0.2-1.0); WBC,Urine 38 /HPF (0-6)
[2018-05-25 08:49] LABS: Barbiturates Screen,Urine Negative (Negative); Benzodiazepines Screen,Urine Negative (Negative); Cannabinoid Screen,Urine Negative (Negative); Opiate Screen,Urine Negative (Negative); Phencyclidine Screen,Urine Negative (Negative)
[2018-05-25] MEDS ORDERED: cefTRIAXone 1,000 MG in SODIUM CHLORIDE 0.9% 100 ML IV STA (10:39)
[2018-05-25] MEDS ORDERED: ONDANSETRON 4 MG/2 ML VIAL IV PRN (12:07)
[2018-05-25] MEDS ORDERED: ACETAMINOPHEN 325 MG TABLET PO PRN (12:07)
[2018-05-25] MEDS ORDERED: GLUCAGON 1 MG VIAL IM PRN (12:17)
[2018-05-25] MEDS ORDERED: DEXTROSE 50% 25 GM/50 ML SYRINGE IV PRN (12:17)
[2018-05-25] MEDS ORDERED: cefTRIAXone 1,000 MG in SODIUM CHLORIDE 0.9% 100 ML IV SCH (12:30)
[2018-05-25 15:00] LABS: Troponin I 0.695 NG/ML (0.00-0.045)
[2018-05-25] MEDS: buPROPion SR 100 MG TABLET PO SCH (15:30)
[2018-05-25] MEDS ORDERED: ALBUTEROL/IPRATROPIUM 3 ML NEB RESP TX PRN (16:26)
[2018-05-25] MEDS: INSULIN LISPRO 100 UNIT/ML SUBCUT SCH ×2 (16:30→21:29)
[2018-05-25] MEDS: INSULIN LISPRO PROTAMINE/LISPRO 75/25 100 UNIT/ML SUBCUT SCH (16:31)
[2018-05-25 20:50] LABS: Troponin I 0.707 NG/ML (0.00-0.045)
[2018-05-25] MEDS: CARVEDILOL 25 MG TABLET PO SCH (21:29)
[2018-05-25] MEDS: LATANOPROST 0.005% OPH SOLN 2.5 ML BOTTLE BOTH EYES SCH (22:30)
[2018-05-26 05:53] LABS: Basophils # 0.1 10*3/uL (0.0-0.2); Basophils % 0.6 % (0.0-0.8); Eosinophils % 0.3 % (0.00-10.9); Hematocrit 29.7 VOL% (35.7-47.0); Hemoglobin 9.1 GM/DL (12.0-16.0); Immature Granulocytes % 0.3 %; Immature Granulocytes Absolute 0.02 #; Lymphocytes # 1.6 10*3/uL (1.4-4.0); Lymphocytes % 20.2 % (21.3-54.2); Mean Corpuscular HGB Conc 30.6 GM/DL (32-36); Mean Corpuscular Hemoglobin 26 PG (27-34); Mean Corpuscular Volume 85.6 FL (87-102); Mean Platelet Volume 11.5 FL (9.6-12.0); Monocytes # 0.6 10*3/uL (0.11-0.8); Monocytes % 7.4 % (1.7-12.7); Neutrophils # 5.6 10*3/uL (1.4-7.4); Neutrophils % 71.2 % (38.7-73.9); Platelet Count 274 T/CUMM (130-400); Red Blood Count 3.47 MC/CUMM (3.8-5.5); Red Cell Distribution Width 14.1 % (9.3-17.3); White Blood Count 7.8 T/CUMM (4-12)
[2018-05-26 06:22] LABS: Albumin 2.3 G/DL (3.4-5.0); Bilirubin,Total 0.5 MG/DL (0.2-1.0); Calcium 8.1 MG/DL (8.5-10.1); Osmolality,Calculated 305.1 MOS/KG (273-304); Potassium 3.4 MMOL/L (3.5-5.1); Risk Ratio 2.48; Thyroid Stimulating Hormone 2.12 uIU/ml (0.358-3.74); Total Protein 6.1 G/DL (6.4-8.3); VLDL CHOLESTEROL 14.8 MG/DL
[2018-05-26] MEDS: INSULIN LISPRO PROTAMINE/LISPRO 75/25 100 UNIT/ML SUBCUT SCH ×2 (09:19→17:27)
[2018-05-26] MEDS: buPROPion SR 100 MG TABLET PO SCH ×2 (09:21→17:27)
[2018-05-26] MEDS: CARVEDILOL 25 MG TABLET PO SCH ×2 (09:21→20:47)
[2018-05-26] MEDS: ARIPiprazole 10 MG TABLET PO SCH (09:21)
[2018-05-26] MEDS: FERROUS SULFATE 325 MG TABLET PO SCH (09:22)
[2018-05-26] MEDS: PANTOPRAZOLE 40 MG TABLET PO SCH (09:22)
[2018-05-26] MEDS: INSULIN LISPRO 100 UNIT/ML SUBCUT SCH ×4 (09:23→20:54)
[2018-05-26] MEDS: POTASSIUM CHLORIDE 20 MEQ TABLET PO PRN ×3 (09:27→21:49)
[2018-05-26] MEDS: cefTRIAXone 1,000 MG in SYRINGE 1 EACH IV SCH (09:46)
[2018-05-26] MEDS: LATANOPROST 0.005% OPH SOLN 2.5 ML BOTTLE BOTH EYES SCH (20:55)
[2018-05-27 03:10] LABS: Basophils % 0.3 % (0.0-0.8); Eosinophils % 0.3 % (0.00-10.9); Hematocrit 28.9 VOL% (35.7-47.0); Immature Granulocytes % 0.2 %; Immature Granulocytes Absolute 0.01 #; Lymphocytes # 1.6 10*3/uL (1.4-4.0); Lymphocytes % 25.4 % (21.3-54.2); Mean Corpuscular HGB Conc 31.1 GM/DL (32-36); Mean Corpuscular Hemoglobin 27 PG (27-34); Mean Corpuscular Volume 86.3 FL (87-102); Mean Platelet Volume 10.2 FL (9.6-12.0); Monocytes # 0.4 10*3/uL (0.11-0.8); Monocytes % 6.1 % (1.7-12.7); Neutrophils # 4.3 10*3/uL (1.4-7.4); Neutrophils % 67.7 % (38.7-73.9); Platelet Count 253 T/CUMM (130-400); Red Blood Count 3.35 MC/CUMM (3.8-5.5); Red Cell Distribution Width 13.9 % (9.3-17.3); White Blood Count 6.4 T/CUMM (4-12)
[2018-05-27 03:29] LABS: Albumin 2.2 G/DL (3.4-5.0); Bilirubin,Total 0.4 MG/DL (0.2-1.0); Calcium 7.8 MG/DL (8.5-10.1); Osmolality,Calculated 312.1 MOS/KG (273-304); Potassium 3.6 MMOL/L (3.5-5.1); Total Protein 5.9 G/DL (6.4-8.3)
[2018-05-27] MEDS: cefTRIAXone 1,000 MG in SYRINGE 1 EACH IV SCH (08:40)
[2018-05-27] MEDS: POTASSIUM CHLORIDE 20 MEQ TABLET PO PRN ×2 (10:15→15:12)
[2018-05-27] MEDS: PANTOPRAZOLE 40 MG TABLET PO SCH (10:15)
[2018-05-27] MEDS: ARIPiprazole 10 MG TABLET PO SCH (10:16)
[2018-05-27] MEDS: FERROUS SULFATE 325 MG TABLET PO SCH (10:16)
[2018-05-27] MEDS: CARVEDILOL 25 MG TABLET PO SCH ×2 (10:16→21:52)
[2018-05-27] MEDS: INSULIN LISPRO 100 UNIT/ML SUBCUT SCH ×4 (10:17→21:54)
[2018-05-27] MEDS: buPROPion SR 100 MG TABLET PO SCH ×2 (10:17→15:45)
[2018-05-27] MEDS: INSULIN LISPRO PROTAMINE/LISPRO 75/25 100 UNIT/ML SUBCUT SCH ×2 (10:18→17:16)
[2018-05-27] MEDS: LATANOPROST 0.005% OPH SOLN 2.5 ML BOTTLE BOTH EYES SCH (21:54)
[2018-05-28 04:48] LABS: Basophils % 0.5 % (0.0-0.8); Eosinophils % 0.3 % (0.00-10.9); Hematocrit 29.7 VOL% (35.7-47.0); Hemoglobin 8.9 GM/DL (12.0-16.0); Immature Granulocytes % 0.3 %; Immature Granulocytes Absolute 0.02 #; Lymphocytes # 1.7 10*3/uL (1.4-4.0); Lymphocytes % 26.2 % (21.3-54.2); Mean Corpuscular Hemoglobin 27 PG (27-34); Mean Corpuscular Volume 88.4 FL (87-102); Mean Platelet Volume 10.8 FL (9.6-12.0); Monocytes # 0.5 10*3/uL (0.11-0.8); Monocytes % 7.3 % (1.7-12.7); Neutrophils # 4.2 10*3/uL (1.4-7.4); Neutrophils % 65.4 % (38.7-73.9); Platelet Count 249 T/CUMM (130-400); Red Blood Count 3.36 MC/CUMM (3.8-5.5); Red Cell Distribution Width 14.2 % (9.3-17.3); White Blood Count 6.4 T/CUMM (4-12)
[2018-05-28 05:08] LABS: Albumin 2.3 G/DL (3.4-5.0); Bilirubin,Total 0.4 MG/DL (0.2-1.0); Calcium 7.6 MG/DL (8.5-10.1); Osmolality,Calculated 308.4 MOS/KG (273-304); Potassium 4.2 MMOL/L (3.5-5.1)
[2018-05-28] MEDS: INSULIN LISPRO 100 UNIT/ML SUBCUT SCH ×4 (08:17→21:58)
[2018-05-28] MEDS: cefTRIAXone 1,000 MG in SYRINGE 1 EACH IV SCH (08:45)
[2018-05-28] MEDS: INSULIN LISPRO PROTAMINE/LISPRO 75/25 100 UNIT/ML SUBCUT SCH ×2 (09:18→09:22)
[2018-05-28] MEDS: PANTOPRAZOLE 40 MG TABLET PO SCH (09:22)
[2018-05-28] MEDS: CARVEDILOL 25 MG TABLET PO SCH ×2 (09:22→21:58)
[2018-05-28] MEDS: ARIPiprazole 10 MG TABLET PO SCH (09:22)
[2018-05-28] MEDS: FERROUS SULFATE 325 MG TABLET PO SCH (09:22)
[2018-05-28] MEDS: buPROPion SR 100 MG TABLET PO SCH ×2 (09:23→14:38)
[2018-05-28] MEDS: LATANOPROST 0.005% OPH SOLN 2.5 ML BOTTLE BOTH EYES SCH (21:57)
[2018-05-29] MEDS ORDERED: INSULIN LISPRO PROTAMINE/LISPRO 75/25 100 UNIT/ML SUBCUT SCH (08:00)
[2018-05-29] MEDS: INSULIN LISPRO PROTAMINE/LISPRO 75/25 100 UNIT/ML SUBCUT SCH (08:31)
[2018-05-29] MEDS: CARVEDILOL 25 MG TABLET PO SCH (08:32)
[2018-05-29] MEDS: FERROUS SULFATE 325 MG TABLET PO SCH (08:32)
[2018-05-29] MEDS: buPROPion SR 100 MG TABLET PO SCH (08:32)
[2018-05-29] MEDS: PANTOPRAZOLE 40 MG TABLET PO SCH (08:32)
[2018-05-29] MEDS: ARIPiprazole 10 MG TABLET PO SCH (08:32)
[2018-05-29] MEDS: INSULIN LISPRO 100 UNIT/ML SUBCUT SCH ×2 (08:33→12:36)
[2018-05-29] MEDS: cefTRIAXone 1,000 MG in SYRINGE 1 EACH IV SCH (08:34)
[2018-05-29 13:10] VITALS: BP 168/80
== END 2018-05-29 14:03 | disposition home or self-care (01) | DRG 469 ==
LOC: N.ED 06:57 → N.EDINP 12:02 → SUATTDRO 12:02 → N.TELES 13:26
PROVIDERS: ADMIT Internal Medicine; ATTEND Internal Medicine

== ENCOUNTER 2018-05-30 10:59 | Observation (INO) ==
[2018-05-30] MEDS ORDERED: FUROSEMIDE 100 MG/10 ML VIAL IV STA (11:16)
[2018-05-30 11:43] LABS: ABG Base Excess -6.4 MMOL/L (-2.5-2.5); ABG HCO3 19.1 MMOL/L (20-26); ABG Oxygen Saturation 92.2 % (95-100); ABG PCO2 35.7 MM HG (35-48); ABG PH 7.331 (7.35-7.45); ABG PO2 67.3 MM HG (80-95); ABG TCO2 17.4 MMOL/L (23-27)
[2018-05-30 12:09] LABS: Basophils % 0.3 % (0.0-0.8); Hematocrit 31.3 VOL% (35.7-47.0); Hemoglobin 9.6 GM/DL (12.0-16.0); Immature Granulocytes % 0.5 %; Immature Granulocytes Absolute 0.05 #; Lymphocytes # 0.9 10*3/uL (1.4-4.0); Mean Corpuscular HGB Conc 30.7 GM/DL (32-36); Mean Corpuscular Hemoglobin 27 PG (27-34); Mean Corpuscular Volume 87.4 FL (87-102); Mean Platelet Volume 11.2 FL (9.6-12.0); Monocytes # 0.5 10*3/uL (0.11-0.8); Monocytes % 4.5 % (1.7-12.7); Neutrophils # 9.4 10*3/uL (1.4-7.4); Neutrophils % 86.7 % (38.7-73.9); Platelet Count 262 T/CUMM (130-400); Red Blood Count 3.58 MC/CUMM (3.8-5.5); Red Cell Distribution Width 14.2 % (9.3-17.3); White Blood Count 10.8 T/CUMM (4-12)
[2018-05-30 12:29] LABS: Alanine Aminotransferase 24 U/L (13-56); Albumin 2.6 G/DL (3.4-5.0); Alkaline Phosphatase 179 U/L (45-117); Aspartate Amino Transferase 19 U/L (0-37); Bilirubin,Total < 0.39 MG/DL (0.2-1.0); Blood Urea Nitrogen 85 MG/DL (7-18); Calcium 7.4 MG/DL (8.5-10.1); Glucose 295 MG/DL (74-106); Osmolality,Calculated 315.4 MOS/KG (273-304); Potassium 4.2 MMOL/L (3.5-5.1); Sodium 140 MMOL/L (136-145)
[2018-05-30] MEDS ORDERED: GLUCAGON 1 MG VIAL IM PRN (16:58)
[2018-05-30] MEDS ORDERED: ONDANSETRON 4 MG/2 ML VIAL IV PRN (16:58)
[2018-05-30] MEDS ORDERED: ACETAMINOPHEN 325 MG TABLET PO PRN (16:58)
[2018-05-30] MEDS ORDERED: DEXTROSE 50% 25 GM/50 ML VIAL IV PRN (16:58)
[2018-05-30] MEDS ORDERED: hydrALAZINE 20 MG/1 ML VIAL IV ONE (17:40)
[2018-05-30] MEDS ORDERED: LEVOFLOXACIN INJ 750 MG in PREMIX 1 EACH IV ONE (18:30)
[2018-05-30] MEDS: CARVEDILOL 25 MG TABLET PO SCH (21:45)
[2018-05-30] MEDS: LATANOPROST 0.005% OPH SOLN 2.5 ML BOTTLE BOTH EYES SCH (21:47)
[2018-05-30] MEDS: INSULIN REGULAR 100 UNIT/ML SUBCUT SCH (22:46)
[2018-05-31 02:40] LABS: Basophils % 0.3 % (0.0-0.8); Eosinophils % 0.1 % (0.00-10.9); Hematocrit 27.7 VOL% (35.7-47.0); Hemoglobin 8.6 GM/DL (12.0-16.0); Immature Granulocytes % 0.2 %; Immature Granulocytes Absolute 0.02 #; Lymphocytes # 1.2 10*3/uL (1.4-4.0); Lymphocytes % 13.3 % (21.3-54.2); Mean Corpuscular Hemoglobin 27 PG (27-34); Mean Corpuscular Volume 87.1 FL (87-102); Mean Platelet Volume 11.2 FL (9.6-12.0); Monocytes # 0.6 10*3/uL (0.11-0.8); Monocytes % 6.9 % (1.7-12.7); Neutrophils # 7.3 10*3/uL (1.4-7.4); Neutrophils % 79.2 % (38.7-73.9); Platelet Count 231 T/CUMM (130-400); Red Blood Count 3.18 MC/CUMM (3.8-5.5); Red Cell Distribution Width 14.1 % (9.3-17.3); White Blood Count 9.2 T/CUMM (4-12)
[2018-05-31 02:54] LABS: Calcium 7.4 MG/DL (8.5-10.1); Osmolality,Calculated 315.3 MOS/KG (273-304); Potassium 3.6 MMOL/L (3.5-5.1)
[2018-05-31] MEDS ORDERED: FUROSEMIDE 40 MG/4 ML VIAL IV SCH (08:00)
[2018-05-31] MEDS: INSULIN LISPRO PROTAMINE/LISPRO 75/25 100 UNIT/ML SUBCUT SCH (08:28)
[2018-05-31] MEDS: buPROPion SR 100 MG TABLET PO SCH ×2 (08:36→16:19)
[2018-05-31] MEDS: ARIPiprazole 10 MG TABLET PO SCH (08:36)
[2018-05-31] MEDS: FERROUS SULFATE 325 MG TABLET PO SCH (08:36)
[2018-05-31] MEDS: CARVEDILOL 25 MG TABLET PO SCH ×2 (08:37→22:03)
[2018-05-31] MEDS: PANTOPRAZOLE 40 MG TABLET PO SCH (08:37)
[2018-05-31] MEDS: INSULIN REGULAR 100 UNIT/ML SUBCUT SCH ×4 (09:49→22:03)
[2018-05-31] MEDS ORDERED: INSULIN LISPRO PROTAMINE/LISPRO 75/25 100 UNIT/ML SUBCUT SCH (16:30)
[2018-05-31] MEDS: LATANOPROST 0.005% OPH SOLN 2.5 ML BOTTLE BOTH EYES SCH (22:05)
[2018-06-01 04:15] LABS: Basophils % 0.3 % (0.0-0.8); Eosinophils % 0.1 % (0.00-10.9); Hematocrit 26.2 VOL% (35.7-47.0); Hemoglobin 8.1 GM/DL (12.0-16.0); Immature Granulocytes % 0.6 %; Immature Granulocytes Absolute 0.05 #; Lymphocytes # 1.4 10*3/uL (1.4-4.0); Mean Corpuscular HGB Conc 30.9 GM/DL (32-36); Mean Corpuscular Hemoglobin 27 PG (27-34); Mean Platelet Volume 11.5 FL (9.6-12.0); Monocytes # 0.7 10*3/uL (0.11-0.8); Monocytes % 8.4 % (1.7-12.7); Neutrophils # 5.8 10*3/uL (1.4-7.4); Neutrophils % 73.6 % (38.7-73.9); Platelet Count 221 T/CUMM (130-400); Red Blood Count 3.01 MC/CUMM (3.8-5.5); White Blood Count 7.9 T/CUMM (4-12)
[2018-06-01 08:28] LABS: Calcium 7.5 MG/DL (8.5-10.1); Osmolality,Calculated 309.3 MOS/KG (273-304); Potassium 3.7 MMOL/L (3.5-5.1)
[2018-06-01] MEDS ORDERED: LEVOFLOXACIN INJ 500 MG in PREMIX 1 EACH IV SCH (09:00)
[2018-06-01] MEDS ORDERED: FUROSEMIDE 40 MG/4 ML VIAL IV SCH (09:00)
[2018-06-01] MEDS: INSULIN LISPRO PROTAMINE/LISPRO 75/25 100 UNIT/ML SUBCUT SCH (10:10)
[2018-06-01] MEDS: buPROPion SR 100 MG TABLET PO SCH (10:11)
[2018-06-01] MEDS: INSULIN REGULAR 100 UNIT/ML SUBCUT SCH ×2 (10:11→12:55)
[2018-06-01] MEDS: ARIPiprazole 10 MG TABLET PO SCH (10:12)
[2018-06-01] MEDS: CARVEDILOL 25 MG TABLET PO SCH (10:12)
[2018-06-01] MEDS: FERROUS SULFATE 325 MG TABLET PO SCH (10:12)
[2018-06-01] MEDS: PANTOPRAZOLE 40 MG TABLET PO SCH (10:13)
[2018-06-01 13:22] VITALS: BP 135/73
== END 2018-06-01 14:02 | disposition home or self-care (01) ==
LOC: N.EDINP 10:59 → N.ED 10:59 → N.TELES 18:21
PROVIDERS: ADMIT Internal Medicine; ATTEND Internal Medicine

== ENCOUNTER 2019-04-16 09:25 | Observation (INO) ==
[2019-04-16] MEDS ORDERED: METOPROLOL TARTRATE 5 MG/5 ML VIAL IV STA (10:15)
[2019-04-16 10:55] LABS: Basophils % 0.2 % (0.0-0.8); Eosinophils % 0.2 % (0.00-10.9); Hematocrit 28.5 VOL% (35.7-47.0); Hemoglobin 9.1 GM/DL (12.0-16.0); Immature Granulocytes % 0.5 %; Immature Granulocytes Absolute 0.06 #; Lymphocytes # 0.9 10*3/uL (1.4-4.0); Lymphocytes % 6.7 % (21.3-54.2); Mean Corpuscular HGB Conc 31.9 GM/DL (32-36); Mean Corpuscular Volume 82.8 FL (87-102); Mean Platelet Volume 10.4 FL (9.6-12.0); Monocytes % 6.5 % (1.7-12.7); Neutrophils % 85.9 % (38.7-73.9); Platelet Count 347 T/CUMM (130-400); Red Blood Count 3.44 MC/CUMM (3.8-5.5); Red Cell Distribution Width 14.1 % (9.3-17.3); White Blood Count 12.9 T/CUMM (4-12)
[2019-04-16 11:04] LABS: Partial Thromboplastin Time 26.7 SECS (20.8-36.0)
[2019-04-16 11:22] LABS: Albumin 3.3 G/DL (3.4-5.0); Bilirubin,Total 0.4 MG/DL (0.2-1.0); Calcium 7.4 MG/DL (8.5-10.1); Total Protein 7.4 G/DL (6.4-8.3)
[2019-04-16] MEDS ORDERED: ONDANSETRON 4 MG/2 ML VIAL IV PRN (12:13)
[2019-04-16] MEDS ORDERED: ACETAMINOPHEN 325 MG TABLET PO PRN (12:13)
[2019-04-16] MEDS ORDERED: GLUCAGON 1 MG VIAL IM PRN (16:00)
[2019-04-16] MEDS ORDERED: DEXTROSE 50% 25 GM/50 ML VIAL IV PRN (16:00)
[2019-04-16] MEDS ORDERED: FUROSEMIDE 80 MG TABLET PO SCH (16:00)
[2019-04-16] MEDS: POTASSIUM CHLORIDE INJ 30 MEQ in SODIUM CHLORIDE 0.45% 1,000 ML IV SCH (16:48)
[2019-04-16] MEDS: buPROPion SR 100 MG TABLET PO SCH (16:48)
[2019-04-16] MEDS ORDERED: INSULIN LISPRO PROTAMINE/LISPRO 75/25 100 UNIT/ML SUBCUT SCH (17:00)
[2019-04-16] MEDS: INSULIN REGULAR 100 UNIT/ML SUBCUT SCH ×2 (17:06→21:41)
[2019-04-16 17:52] LABS: Apearance,Urine Slightly Hazy (Clear); Bacteria,Urine Occasional /HPF (Few); Bilirubin,Urine Negative (Negative); Blood, Urine Small mg/dL (Negative); Glucose,Urine (UA) 150 mg/dL (Negative); Ketones,Urine 5 mg/dL (Negative); Nitrite,Urine Negative (Negative); Protein,Urine 100 MG/DL; RBC,Urine 4 /HPF (0-4); Squamous Epithelial Cell,Urine Occasional /HPF (0-10); Urine Color Yellow (Yellow); Urine Specific Gravity 1.013 (1.001-1.035); Urine Urobilinogen < 2.0 EU/DL (0.2-1.0); WBC,Urine 1 /HPF (0-6)
[2019-04-16 18:06] LABS: Barbiturates Screen,Urine Negative (Negative); Benzodiazepines Screen,Urine Negative (Negative); Cannabinoid Screen,Urine Negative (Negative); Opiate Screen,Urine Negative (Negative); Phencyclidine Screen,Urine Negative (Negative)
[2019-04-16] MEDS: carvediloL 25 MG TABLET PO SCH (21:41)
[2019-04-16] MEDS: LATANOPROST 0.005% OPH SOLN 2.5 ML BOTTLE BOTH EYES SCH (21:42)
[2019-04-17] MEDS: POTASSIUM CHLORIDE INJ 30 MEQ in SODIUM CHLORIDE 0.45% 1,000 ML IV SCH (03:05)
[2019-04-17 06:39] LABS: Basophils # 0.1 10*3/uL (0.0-0.2); Basophils % 0.5 % (0.0-0.8); Eosinophils # 0.1 10*3/uL (0.0-0.87); Eosinophils % 0.7 % (0.00-10.9); Hematocrit 26.9 VOL% (35.7-47.0); Hemoglobin 8.4 GM/DL (12.0-16.0); Immature Granulocytes % 0.8 %; Immature Granulocytes Absolute 0.07 #; Lymphocytes # 1.2 10*3/uL (1.4-4.0); Lymphocytes % 12.6 % (21.3-54.2); Mean Corpuscular HGB Conc 31.2 GM/DL (32-36); Mean Corpuscular Volume 83.8 FL (87-102); Mean Platelet Volume 10.7 FL (9.6-12.0); Monocytes % 9.5 % (1.7-12.7); Neutrophils % 75.9 % (38.7-73.9); Platelet Count 326 T/CUMM (130-400); Red Blood Count 3.21 MC/CUMM (3.8-5.5); Red Cell Distribution Width 13.8 % (9.3-17.3); White Blood Count 9.2 T/CUMM (4-12)
[2019-04-17 07:29] LABS: Calcium 6.7 MG/DL (8.5-10.1); Osmolality,Calculated 330.1 MOS/KG (273-304)
[2019-04-17] MEDS ORDERED: POTASSIUM CHLORIDE 20 MEQ TABLET PO ONE (07:42)
[2019-04-17] MEDS ORDERED: INSULIN LISPRO PROTAMINE/LISPRO 75/25 100 UNIT/ML SUBCUT SCH ×2 (08:00→14:57)
[2019-04-17] MEDS: INSULIN REGULAR 100 UNIT/ML SUBCUT SCH ×4 (08:19→21:07)
[2019-04-17] MEDS ORDERED: POTASSIUM CHLORIDE 20 MEQ TABLET PO SCH (09:00)
[2019-04-17] MEDS: buPROPion SR 100 MG TABLET PO SCH ×2 (09:09→14:04)
[2019-04-17] MEDS: DOXAZOSIN 1 MG TABLET PO SCH (09:09)
[2019-04-17] MEDS: PANTOPRAZOLE 40 MG TABLET PO SCH (09:09)
[2019-04-17] MEDS: ARIPiprazole 10 MG TABLET PO SCH (09:09)
[2019-04-17] MEDS: carvediloL 25 MG TABLET PO SCH ×2 (09:10→21:04)
[2019-04-17] MEDS: FERROUS SULFATE 325 MG TABLET PO SCH (09:10)
[2019-04-17] MEDS: DEXTROSE 10% 1,000 ML IV SCH (10:00)
[2019-04-17] MEDS: POTASSIUM CHLORIDE INJ 40 MEQ in SODIUM CHLORIDE 0.45% 1,000 ML IV SCH ×2 (13:35→23:55)
[2019-04-17] MEDS: POTASSIUM CHLORIDE 20 MEQ TABLET PO SCH ×3 (14:00→21:04)
[2019-04-17] MEDS: INSULIN LISPRO PROTAMINE/LISPRO 75/25 100 UNIT/ML SUBCUT SCH (18:27)
[2019-04-17] MEDS: LATANOPROST 0.005% OPH SOLN 2.5 ML BOTTLE BOTH EYES SCH (21:06)
[2019-04-17 22:18] LABS: Calcium 6.8 MG/DL (8.5-10.1); Osmolality,Calculated 335.5 MOS/KG (273-304)
[2019-04-18] MEDS: INSULIN REGULAR 100 UNIT/ML SUBCUT SCH ×3 (08:38→17:22)
[2019-04-18] MEDS: DEXTROSE 10% 1,000 ML IV SCH (08:39)
[2019-04-18] MEDS: DOXAZOSIN 1 MG TABLET PO SCH (08:43)
[2019-04-18] MEDS: buPROPion SR 100 MG TABLET PO SCH ×2 (08:43→17:21)
[2019-04-18] MEDS: POTASSIUM CHLORIDE 20 MEQ TABLET PO SCH ×3 (09:02→17:20)
[2019-04-18] MEDS: carvediloL 25 MG TABLET PO SCH (09:02)
[2019-04-18] MEDS: ARIPiprazole 10 MG TABLET PO SCH (09:14)
[2019-04-18] MEDS: PANTOPRAZOLE 40 MG TABLET PO SCH (09:14)
[2019-04-18] MEDS: FERROUS SULFATE 325 MG TABLET PO SCH (09:14)
[2019-04-18] MEDS: POTASSIUM CHLORIDE INJ 40 MEQ in SODIUM CHLORIDE 0.45% 1,000 ML IV SCH (11:17)
[2019-04-18] MEDS: INSULIN LISPRO PROTAMINE/LISPRO 75/25 100 UNIT/ML SUBCUT SCH (17:24)
[2019-04-18 19:15] VITALS: BP 142/66
== END 2019-04-18 20:04 | disposition home or self-care (01) ==
LOC: EDUNIT# → EDBD → N.ED 09:25 → N.EDINP 09:25 → SUATTDRO 12:13 → N.3E 13:32
PROVIDERS: ADMIT Internal Medicine; ATTEND Internal Medicine

== ENCOUNTER 2019-04-26 10:33 | Inpatient (IN) ==
[2019-04-26] MEDS ORDERED: ONDANSETRON 4 MG/2 ML VIAL IV STA (10:58)
[2019-04-26] MEDS ORDERED: SODIUM CHLORIDE 0.9% 2,000 ML IV STA (10:58)
[2019-04-26] MEDS ORDERED: INSULIN REGULAR 100 UNIT/ML IV ONE ×2 (10:59→20:38)
[2019-04-26 11:41] LABS: ABG Base Excess -8.1 MMOL/L (-2.5-2.5); ABG HCO3 17.7 MMOL/L (20-26); ABG Oxygen Saturation 93.7 % (95-100); ABG PCO2 38.7 MM HG (35-48); ABG PH 7.278 (7.35-7.45); ABG PO2 74.1 MM HG (80-95); ABG TCO2 16.9 MMOL/L (23-27); Allen Test Positive; Pt O2 Delivery Device Room Air
[2019-04-26 12:14] LABS: Basophils % 0.2 % (0.0-0.8); Hematocrit 29.4 VOL% (35.7-47.0); Hemoglobin 8.6 GM/DL (12.0-16.0); Immature Granulocytes % 0.5 %; Immature Granulocytes Absolute 0.07 #; Lymphocytes # 0.5 10*3/uL (1.4-4.0); Lymphocytes % 3.3 % (21.3-54.2); Mean Corpuscular HGB Conc 29.3 GM/DL (32-36); Mean Platelet Volume 11.4 FL (9.6-12.0); Monocytes % 3.2 % (1.7-12.7); Neutrophils % 92.8 % (38.7-73.9); Platelet Count 363 T/CUMM (130-400); Red Blood Count 3.23 MC/CUMM (3.8-5.5); Red Cell Distribution Width 14.6 % (9.3-17.3); White Blood Count 13.6 T/CUMM (4-12)
[2019-04-26] MEDS ORDERED: SODIUM PHOSPHATE IV PRN (12:58)
[2019-04-26] MEDS ORDERED: SODIUM CHLORIDE 0.9% IV PRN (12:58)
[2019-04-26] MEDS ORDERED: MAGNESIUM SULF RIDER 2 GM in PREMIX 1 EACH IV PRN (12:58)
[2019-04-26] MEDS ORDERED: MAGNESIUM SULF RIDER 4 GM in PREMIX 1 EACH IV PRN (12:58)
[2019-04-26] MEDS ORDERED: SODIUM BICARB INJ 100 MEQ in STERILE WATER INJ 400 ML IV PRN (12:58)
[2019-04-26] MEDS ORDERED: SODIUM CHLORIDE 0.9% 1,000 ML IV ONE ×2 (12:58→15:20)
[2019-04-26] MEDS ORDERED: DEXTROSE 10% 250 ML BAG IV PRN ×2 (12:58)
[2019-04-26 13:05] LABS: Calcium 7.9 MG/DL (8.5-10.1); Osmolality,Calculated 378.1 MOS/KG (273-304)
[2019-04-26] MEDS ORDERED: INSULIN REGULAR 100 UNIT/ML IV STA (13:26)
[2019-04-26 13:52] LABS: Eosinophils 1 % (0-10); Lymphocytes 2 % (20-55); Segmented Neutrophils 94 % (50-85); Total Cells Counted 100
[2019-04-26 13:54] LABS: Platelet Estimate Adequate
[2019-04-26] MEDS ORDERED: SODIUM CHLORIDE 0.9% 1,000 ML IV SCH ×2 (13:58→17:58)
[2019-04-26] MEDS: INSULIN REGULAR DRIP 100 ML IV SCH (15:55)
[2019-04-26] MEDS: ENOXAPARIN 30 MG/0.3 ML SYRINGE SUBCUT SCH (15:57)
[2019-04-26 16:03] LABS: Osmolality,Calculated 376.2 MOS/KG (273-304)
[2019-04-26] MEDS: carvediloL 25 MG TABLET PO SCH (16:08)
[2019-04-26 16:09] LABS: Apearance,Urine Slightly Hazy (Clear); Bacteria,Urine Occasional /HPF (Few); Bilirubin,Urine Negative (Negative); Blood, Urine Moderate mg/dL (Negative); Glucose,Urine (UA) >=500 mg/dL (Negative); Ketones,Urine 20 mg/dL (Negative); Nitrite,Urine Negative (Negative); Protein,Urine 100 MG/DL; RBC,Urine 2 /HPF (0-4); Squamous Epithelial Cell,Urine Occasional /HPF (0-10); Urine Color Yellow (Yellow); Urine Specific Gravity 1.018 (1.001-1.035); Urine Urobilinogen < 2.0 EU/DL (0.2-1.0)
[2019-04-26 16:41] LABS: Calcium 7.8 MG/DL (8.5-10.1); Osmolality,Calculated 376.1 MOS/KG (273-304)
[2019-04-26 21:52] LABS: Osmolality,Calculated 365.4 MOS/KG (273-304)
[2019-04-26] MEDS: SODIUM CHLOR 0.45% KCL 20 MEQ 20 MEQ/1,000 ML BAG IV SCH (22:08)
[2019-04-26] MEDS: LATANOPROST 0.005% OPH SOLN 2.5 ML BOTTLE BOTH EYES SCH (23:33)
[2019-04-27] MEDS: hydrALAZINE 20 MG/1 ML VIAL IV PRN ×4 (01:20→13:21)
[2019-04-27 01:29] LABS: Calcium 8.2 MG/DL (8.5-10.1)
[2019-04-27] MEDS: SODIUM CHLOR 0.45% KCL 20 MEQ 20 MEQ/1,000 ML BAG IV SCH ×3 (02:08→10:38)
[2019-04-27 05:19] LABS: Basophils % 0.2 % (0.0-0.8); Eosinophils % 0.3 % (0.00-10.9); Hematocrit 23.2 VOL% (35.7-47.0); Hemoglobin 7.4 GM/DL (12.0-16.0); Immature Granulocytes % 0.5 %; Immature Granulocytes Absolute 0.08 #; Lymphocytes # 1.1 10*3/uL (1.4-4.0); Lymphocytes % 7.5 % (21.3-54.2); Mean Corpuscular HGB Conc 31.9 GM/DL (32-36); Mean Corpuscular Volume 84.4 FL (87-102); Mean Platelet Volume 10.6 FL (9.6-12.0); Monocytes % 4.5 % (1.7-12.7); Platelet Count 302 T/CUMM (130-400); Red Blood Count 2.75 MC/CUMM (3.8-5.5); Red Cell Distribution Width 14.3 % (9.3-17.3); White Blood Count 14.6 T/CUMM (4-12)
[2019-04-27 05:35] LABS: Calcium 7.8 MG/DL (8.5-10.1); Osmolality,Calculated 348.1 MOS/KG (273-304)
[2019-04-27] MEDS ORDERED: SODIUM CHLORIDE 0.45% 1,000 ML IV SCH (05:58)
[2019-04-27] MEDS: DOXAZOSIN 1 MG TABLET PO SCH (08:45)
[2019-04-27] MEDS: carvediloL 25 MG TABLET PO SCH ×2 (08:45→17:55)
[2019-04-27 09:34] LABS: Calcium 8.5 MG/DL (8.5-10.1)
[2019-04-27] MEDS: SODIUM CHLORIDE 0.45% 1,000 ML IV SCH ×2 (10:12→17:16)
[2019-04-27] MEDS: POTASSIUM CHLORIDE RIDER 10 MEQ in PREMIX 1 EACH IV PRN ×7 (10:13→21:07)
[2019-04-27 11:53] LABS: Apearance,Urine CLEAR (Clear); Bacteria,Urine Occasional /HPF (Few); Bilirubin,Urine Negative (Negative); Blood, Urine Small mg/dL (Negative); Glucose,Urine (UA) >=500 mg/dL (Negative); Hyaline Casts,Urine 1 /LPF (0-3); Ketones,Urine Negative (Negative); Mucus,Urine Occasional /LPF (Occasional); Nitrite,Urine Negative (Negative); Protein,Urine 100 MG/DL; RBC,Urine 3 /HPF (0-4); Squamous Epithelial Cell,Urine Occasional /HPF (0-10); Urine Color Yellow (Yellow); Urine Specific Gravity 1.012 (1.001-1.035); Urine Urobilinogen < 2.0 EU/DL (0.2-1.0); WBC,Urine 7 /HPF (0-6)
[2019-04-27 13:48] LABS: Calcium 8.5 MG/DL (8.5-10.1)
[2019-04-27] MEDS: INSULIN REGULAR DRIP 100 ML IV SCH (14:23)
[2019-04-27] MEDS: ACETAMINOPHEN 325 MG TABLET PO PRN (14:45)
[2019-04-27] MEDS: ENOXAPARIN 30 MG/0.3 ML SYRINGE SUBCUT SCH (15:09)
[2019-04-27 17:55] LABS: Calcium 7.7 MG/DL (8.5-10.1); Osmolality,Calculated 325.1 MOS/KG (273-304)
[2019-04-27] MEDS: DEXTROSE 5% NACL 0.45% 1,000 ML IV SCH (18:25)
[2019-04-27] MEDS: LATANOPROST 0.005% OPH SOLN 2.5 ML BOTTLE BOTH EYES SCH (21:22)
[2019-04-27 23:37] LABS: Osmolality,Calculated 320.8 MOS/KG (273-304)
[2019-04-28] MEDS ORDERED: GLUCAGON 1 MG VIAL IM PRN
[2019-04-28] MEDS ORDERED: DEXTROSE 50% 25 GM/50 ML VIAL IV PRN
[2019-04-28] MEDS: POTASSIUM CHLORIDE RIDER 10 MEQ in PREMIX 1 EACH IV PRN ×9 (00:17→22:21)
[2019-04-28] MEDS: INSULIN REGULAR 100 UNIT/ML SUBCUT SCH ×2 (00:32→04:55)
[2019-04-28] MEDS: SODIUM CHLORIDE 0.45% 1,000 ML IV SCH ×4 (00:32→20:17)
[2019-04-28] MEDS: DEXTROSE 5% NACL 0.45% 1,000 ML IV SCH ×4 (01:53→20:06)
[2019-04-28 04:27] LABS: Basophils % 0.1 % (0.0-0.8); Eosinophils # 0.1 10*3/uL (0.0-0.87); Eosinophils % 1.3 % (0.00-10.9); Hematocrit 21.8 VOL% (35.7-47.0); Hemoglobin 6.7 GM/DL (12.0-16.0); Immature Granulocytes Absolute 0.11 #; Lymphocytes # 1.1 10*3/uL (1.4-4.0); Lymphocytes % 9.7 % (21.3-54.2); Mean Corpuscular HGB Conc 30.7 GM/DL (32-36); Mean Corpuscular Volume 86.2 FL (87-102); Mean Platelet Volume 11.1 FL (9.6-12.0); Monocytes % 5.2 % (1.7-12.7); Neutrophils % 82.7 % (38.7-73.9); Platelet Count 268 T/CUMM (130-400); Red Blood Count 2.53 MC/CUMM (3.8-5.5); Red Cell Distribution Width 14.6 % (9.3-17.3); White Blood Count 11.2 T/CUMM (4-12)
[2019-04-28 04:44] LABS: Calcium 7.8 MG/DL (8.5-10.1); Osmolality,Calculated 325.1 MOS/KG (273-304)
[2019-04-28] MEDS ORDERED: SODIUM CHLORIDE 0.9% 1,000 ML IV PRN (08:26)
[2019-04-28 08:34] LABS: Calcium 7.4 MG/DL (8.5-10.1); Osmolality,Calculated 323.4 MOS/KG (273-304)
[2019-04-28] MEDS: carvediloL 25 MG TABLET PO SCH ×2 (08:38→17:07)
[2019-04-28] MEDS: DOXAZOSIN 1 MG TABLET PO SCH (08:38)
[2019-04-28] MEDS: ASPIRIN EC 81 MG TABLET PO SCH (08:38)
[2019-04-28] MEDS: INSULIN REGULAR DRIP 100 ML IV SCH (12:32)
[2019-04-28 12:49] LABS: Calcium 7.4 MG/DL (8.5-10.1); Osmolality,Calculated 318.4 MOS/KG (273-304)
[2019-04-28] MEDS: ENOXAPARIN 30 MG/0.3 ML SYRINGE SUBCUT SCH (14:57)
[2019-04-28 16:38] LABS: Calcium 7.1 MG/DL (8.5-10.1); Osmolality,Calculated 313.5 MOS/KG (273-304)
[2019-04-28] MEDS: LATANOPROST 0.005% OPH SOLN 2.5 ML BOTTLE BOTH EYES SCH (20:18)
[2019-04-28 20:43] LABS: Calcium 6.8 MG/DL (8.5-10.1); Osmolality,Calculated 311.4 MOS/KG (273-304)
[2019-04-29 00:37] LABS: Osmolality,Calculated 308.5 MOS/KG (273-304)
[2019-04-29] MEDS: POTASSIUM CHLORIDE RIDER 10 MEQ in PREMIX 1 EACH IV PRN ×4 (01:09→20:28)
[2019-04-29] MEDS: DEXTROSE 5% NACL 0.45% 1,000 ML IV SCH ×3 (02:47→18:18)
[2019-04-29] MEDS: SODIUM CHLORIDE 0.45% 1,000 ML IV SCH (04:05)
[2019-04-29] MEDS: INSULIN REGULAR DRIP 100 ML IV SCH ×2 (04:25→20:15)
[2019-04-29 04:54] LABS: Basophils % 0.3 % (0.0-0.8); Eosinophils # 0.2 10*3/uL (0.0-0.87); Eosinophils % 1.7 % (0.00-10.9); Hematocrit 27.8 VOL% (35.7-47.0); Hemoglobin 8.8 GM/DL (12.0-16.0); Immature Granulocytes % 1.4 %; Immature Granulocytes Absolute 0.13 #; Lymphocytes # 1.2 10*3/uL (1.4-4.0); Mean Corpuscular HGB Conc 31.7 GM/DL (32-36); Mean Corpuscular Volume 85.8 FL (87-102); Mean Platelet Volume 10.8 FL (9.6-12.0); Monocytes % 6.6 % (1.7-12.7); Platelet Count 259 T/CUMM (130-400); Red Blood Count 3.24 MC/CUMM (3.8-5.5); Red Cell Distribution Width 14.6 % (9.3-17.3); White Blood Count 9.4 T/CUMM (4-12)
[2019-04-29] MEDS: hydrALAZINE 20 MG/1 ML VIAL IV PRN (04:54)
[2019-04-29 05:30] LABS: Calcium 6.9 MG/DL (8.5-10.1); Osmolality,Calculated 311.7 MOS/KG (273-304)
[2019-04-29] MEDS: carvediloL 25 MG TABLET PO SCH ×2 (09:14→17:51)
[2019-04-29] MEDS: DOXAZOSIN 1 MG TABLET PO SCH (09:15)
[2019-04-29 10:20] LABS: Calcium 6.7 MG/DL (8.5-10.1); Osmolality,Calculated 303.8 MOS/KG (273-304)
[2019-04-29] MEDS: INSULIN NPH 100 UNIT/ML SUBCUT SCH ×2 (10:20→15:30)
[2019-04-29] MEDS ORDERED: ONDANSETRON 4 MG/2 ML VIAL IV PRN (10:49)
[2019-04-29] MEDS: ENOXAPARIN 30 MG/0.3 ML SYRINGE SUBCUT SCH (14:48)
[2019-04-29] MEDS: buPROPion SR 100 MG TABLET PO SCH (14:48)
[2019-04-29] MEDS: SODIUM BICARBONATE 650 MG TABLET PO SCH (20:27)
[2019-04-29] MEDS: LATANOPROST 0.005% OPH SOLN 2.5 ML BOTTLE BOTH EYES SCH (20:27)
[2019-04-30] MEDS: DEXTROSE 5% NACL 0.45% 1,000 ML IV SCH ×2 (02:41→10:34)
[2019-04-30 05:13] LABS: Basophils % 0.1 % (0.0-0.8); Eosinophils # 0.1 10*3/uL (0.0-0.87); Eosinophils % 1.7 % (0.00-10.9); Hematocrit 25.8 VOL% (35.7-47.0); Hemoglobin 8.3 GM/DL (12.0-16.0); Immature Granulocytes % 1.2 %; Immature Granulocytes Absolute 0.09 #; Lymphocytes # 0.9 10*3/uL (1.4-4.0); Lymphocytes % 11.4 % (21.3-54.2); Mean Corpuscular HGB Conc 32.2 GM/DL (32-36); Mean Corpuscular Volume 85.1 FL (87-102); Mean Platelet Volume 10.7 FL (9.6-12.0); Monocytes % 6.4 % (1.7-12.7); Neutrophils % 79.2 % (38.7-73.9); Platelet Count 230 T/CUMM (130-400); Red Blood Count 3.03 MC/CUMM (3.8-5.5); Red Cell Distribution Width 14.6 % (9.3-17.3); White Blood Count 7.7 T/CUMM (4-12)
[2019-04-30 05:30] LABS: Calcium 6.5 MG/DL (8.5-10.1); Osmolality,Calculated 303.4 MOS/KG (273-304)
[2019-04-30] MEDS: POTASSIUM CHLORIDE RIDER 10 MEQ in PREMIX 1 EACH IV PRN ×2 (06:21→07:22)
[2019-04-30] MEDS: DOXAZOSIN 1 MG TABLET PO SCH (08:36)
[2019-04-30] MEDS: buPROPion SR 100 MG TABLET PO SCH ×2 (08:36→15:39)
[2019-04-30] MEDS: ASPIRIN EC 81 MG TABLET PO SCH (08:37)
[2019-04-30] MEDS: carvediloL 25 MG TABLET PO SCH ×2 (08:37→16:01)
[2019-04-30] MEDS: SODIUM BICARBONATE 650 MG TABLET PO SCH ×3 (08:37→22:17)
[2019-04-30] MEDS: INSULIN NPH 100 UNIT/ML SUBCUT SCH ×2 (08:39→15:40)
[2019-04-30] MEDS ORDERED: INSULIN REGULAR 100 UNIT/ML SUBCUT SCH (12:00)
[2019-04-30] MEDS: INSULIN LISPRO 100 UNIT/ML SUBCUT SCH ×3 (13:15→22:18)
[2019-04-30] MEDS: ENOXAPARIN 30 MG/0.3 ML SYRINGE SUBCUT SCH (15:40)
[2019-05-01] MEDS: INSULIN LISPRO 100 UNIT/ML SUBCUT SCH ×6 (00:12→21:55)
[2019-05-01] MEDS: LATANOPROST 0.005% OPH SOLN 2.5 ML BOTTLE BOTH EYES SCH (00:29)
[2019-05-01 06:13] LABS: Osmolality,Calculated 303.3 MOS/KG (273-304)
[2019-05-01] MEDS: carvediloL 25 MG TABLET PO SCH ×2 (09:09→16:53)
[2019-05-01] MEDS: SODIUM BICARBONATE 650 MG TABLET PO SCH ×2 (09:10→21:55)
[2019-05-01] MEDS: DOXAZOSIN 1 MG TABLET PO SCH (09:10)
[2019-05-01] MEDS: INSULIN NPH 100 UNIT/ML SUBCUT SCH ×2 (09:10→16:53)
[2019-05-01] MEDS: buPROPion SR 100 MG TABLET PO SCH ×2 (09:29→15:47)
[2019-05-01] MEDS: ENOXAPARIN 30 MG/0.3 ML SYRINGE SUBCUT SCH (15:46)
[2019-05-02] MEDS: INSULIN LISPRO 100 UNIT/ML SUBCUT SCH ×7 (01:58→23:46)
[2019-05-02] MEDS: LATANOPROST 0.005% OPH SOLN 2.5 ML BOTTLE BOTH EYES SCH ×2 (01:59→22:53)
[2019-05-02 06:37] LABS: Calcium 7.1 MG/DL (8.5-10.1); Osmolality,Calculated 301.5 MOS/KG (273-304)
[2019-05-02] MEDS: INSULIN NPH 100 UNIT/ML SUBCUT SCH ×2 (09:26→16:47)
[2019-05-02] MEDS: DOXAZOSIN 1 MG TABLET PO SCH (09:26)
[2019-05-02] MEDS: carvediloL 25 MG TABLET PO SCH ×2 (12:34→16:47)
[2019-05-02] MEDS: SODIUM BICARBONATE 650 MG TABLET PO SCH ×2 (12:34→21:39)
[2019-05-02] MEDS: ASPIRIN EC 81 MG TABLET PO SCH (12:35)
[2019-05-02] MEDS: buPROPion SR 100 MG TABLET PO SCH ×2 (12:35→14:42)
[2019-05-02] MEDS: ENOXAPARIN 30 MG/0.3 ML SYRINGE SUBCUT SCH (14:46)
[2019-05-03] MEDS: INSULIN LISPRO 100 UNIT/ML SUBCUT SCH ×5 (05:03→20:49)
[2019-05-03 05:53] LABS: Calcium 7.4 MG/DL (8.5-10.1); Osmolality,Calculated 303.3 MOS/KG (273-304)
[2019-05-03] MEDS: buPROPion SR 100 MG TABLET PO SCH ×2 (08:25→16:07)
[2019-05-03] MEDS: SODIUM BICARBONATE 650 MG TABLET PO SCH ×2 (08:26→20:49)
[2019-05-03] MEDS: DOXAZOSIN 1 MG TABLET PO SCH (08:26)
[2019-05-03] MEDS: carvediloL 25 MG TABLET PO SCH ×2 (08:26→17:20)
[2019-05-03] MEDS: INSULIN NPH 100 UNIT/ML SUBCUT SCH ×2 (09:57→17:20)
[2019-05-03] MEDS: HEPARIN 5,000 UNIT/1 ML VIAL SUBCUT SCH (18:08)
[2019-05-03] MEDS: LATANOPROST 0.005% OPH SOLN 2.5 ML BOTTLE BOTH EYES SCH (20:51)
[2019-05-04 05:43] LABS: Basophils % 0.5 % (0.0-0.8); Eosinophils # 0.1 10*3/uL (0.0-0.87); Eosinophils % 1.7 % (0.00-10.9); Hematocrit 25.1 VOL% (35.7-47.0); Hemoglobin 7.8 GM/DL (12.0-16.0); Immature Granulocytes % 1.6 %; Immature Granulocytes Absolute 0.13 #; Lymphocytes # 0.9 10*3/uL (1.4-4.0); Lymphocytes % 11.4 % (21.3-54.2); Mean Corpuscular HGB Conc 31.1 GM/DL (32-36); Mean Corpuscular Volume 85.7 FL (87-102); Mean Platelet Volume 10.9 FL (9.6-12.0); Monocytes % 10.8 % (1.7-12.7); Platelet Count 399 T/CUMM (130-400); Red Blood Count 2.93 MC/CUMM (3.8-5.5); Red Cell Distribution Width 15.4 % (9.3-17.3); White Blood Count 8.2 T/CUMM (4-12)
[2019-05-04 06:01] LABS: Calcium 7.6 MG/DL (8.5-10.1); Osmolality,Calculated 306.7 MOS/KG (273-304)
[2019-05-04] MEDS: HEPARIN 5,000 UNIT/1 ML VIAL SUBCUT SCH ×2 (06:01→18:06)
[2019-05-04] MEDS: INSULIN NPH 100 UNIT/ML SUBCUT SCH ×2 (08:58→16:51)
[2019-05-04] MEDS: INSULIN LISPRO 100 UNIT/ML SUBCUT SCH ×4 (08:59→20:41)
[2019-05-04] MEDS: SODIUM BICARBONATE 650 MG TABLET PO SCH ×2 (09:00→20:40)
[2019-05-04] MEDS: DOXAZOSIN 1 MG TABLET PO SCH (09:00)
[2019-05-04] MEDS: buPROPion SR 100 MG TABLET PO SCH ×2 (09:00→15:37)
[2019-05-04] MEDS: ASPIRIN EC 81 MG TABLET PO SCH (09:01)
[2019-05-04] MEDS: carvediloL 25 MG TABLET PO SCH ×2 (09:01→16:52)
[2019-05-04] MEDS: LATANOPROST 0.005% OPH SOLN 2.5 ML BOTTLE BOTH EYES SCH (20:40)
[2019-05-05] MEDS: HEPARIN 5,000 UNIT/1 ML VIAL SUBCUT SCH ×2 (05:16→18:05)
[2019-05-05] MEDS: DOXAZOSIN 1 MG TABLET PO SCH (08:52)
[2019-05-05] MEDS: CALCITRIOL 0.25 MCG CAPSULE PO SCH (08:53)
[2019-05-05] MEDS: buPROPion SR 100 MG TABLET PO SCH ×2 (08:53→15:36)
[2019-05-05] MEDS: SODIUM BICARBONATE 650 MG TABLET PO SCH ×2 (08:53→20:02)
[2019-05-05] MEDS: carvediloL 25 MG TABLET PO SCH ×2 (08:53→16:56)
[2019-05-05] MEDS: INSULIN LISPRO 100 UNIT/ML SUBCUT SCH ×4 (08:54→20:59)
[2019-05-05] MEDS: INSULIN NPH 100 UNIT/ML SUBCUT SCH ×2 (08:54→16:55)
[2019-05-05] MEDS: LATANOPROST 0.005% OPH SOLN 2.5 ML BOTTLE BOTH EYES SCH (20:02)
[2019-05-06] MEDS: HEPARIN 5,000 UNIT/1 ML VIAL SUBCUT SCH ×2 (06:32→17:10)
[2019-05-06 07:32] LABS: Calcium 7.7 MG/DL (8.5-10.1); Osmolality,Calculated 311.7 MOS/KG (273-304)
[2019-05-06] MEDS: INSULIN LISPRO 100 UNIT/ML SUBCUT SCH ×4 (09:41→22:51)
[2019-05-06] MEDS: DOXAZOSIN 1 MG TABLET PO SCH (09:41)
[2019-05-06] MEDS: INSULIN NPH 100 UNIT/ML SUBCUT SCH ×2 (09:41→17:09)
[2019-05-06] MEDS: ASPIRIN EC 81 MG TABLET PO SCH (09:42)
[2019-05-06] MEDS: CALCITRIOL 0.25 MCG CAPSULE PO SCH (09:42)
[2019-05-06] MEDS: buPROPion SR 100 MG TABLET PO SCH ×2 (09:42→15:14)
[2019-05-06] MEDS: SODIUM BICARBONATE 650 MG TABLET PO SCH ×2 (09:42→21:16)
[2019-05-06] MEDS: carvediloL 25 MG TABLET PO SCH ×2 (09:42→17:08)
[2019-05-06] MEDS: FUROSEMIDE 80 MG TABLET PO SCH (15:14)
[2019-05-06] MEDS: LATANOPROST 0.005% OPH SOLN 2.5 ML BOTTLE BOTH EYES SCH (22:59)
[2019-05-07] MEDS: INSULIN LISPRO 100 UNIT/ML SUBCUT SCH ×4 (05:06→17:34)
[2019-05-07] MEDS: HEPARIN 5,000 UNIT/1 ML VIAL SUBCUT SCH ×2 (05:30→17:36)
[2019-05-07 06:29] LABS: Basophils % 0.4 % (0.0-0.8); Eosinophils # 0.1 10*3/uL (0.0-0.87); Eosinophils % 1.2 % (0.00-10.9); Hematocrit 24.1 VOL% (35.7-47.0); Hemoglobin 7.3 GM/DL (12.0-16.0); Lymphocytes # 0.9 10*3/uL (1.4-4.0); Lymphocytes % 9.1 % (21.3-54.2); Mean Corpuscular HGB Conc 30.3 GM/DL (32-36); Mean Corpuscular Volume 88.3 FL (87-102); Mean Platelet Volume 10.3 FL (9.6-12.0); Monocytes % 9.9 % (1.7-12.7); Neutrophils % 78.4 % (38.7-73.9); Platelet Count 457 T/CUMM (130-400); Red Blood Count 2.73 MC/CUMM (3.8-5.5); Red Cell Distribution Width 15.8 % (9.3-17.3); White Blood Count 9.9 T/CUMM (4-12)
[2019-05-07 06:55] LABS: Osmolality,Calculated 304.3 MOS/KG (273-304)
[2019-05-07] MEDS: INSULIN NPH 100 UNIT/ML SUBCUT SCH ×2 (09:00→17:35)
[2019-05-07] MEDS: DOXAZOSIN 1 MG TABLET PO SCH (09:06)
[2019-05-07] MEDS: buPROPion SR 100 MG TABLET PO SCH ×2 (09:06→16:51)
[2019-05-07] MEDS: SODIUM BICARBONATE 650 MG TABLET PO SCH ×2 (09:06→21:20)
[2019-05-07] MEDS: FUROSEMIDE 80 MG TABLET PO SCH (09:07)
[2019-05-07] MEDS: CALCITRIOL 0.25 MCG CAPSULE PO SCH (09:07)
[2019-05-07] MEDS: carvediloL 25 MG TABLET PO SCH ×2 (09:07→16:51)
[2019-05-08] MEDS: LATANOPROST 0.005% OPH SOLN 2.5 ML BOTTLE BOTH EYES SCH ×2 (05:29→22:33)
[2019-05-08] MEDS: HEPARIN 5,000 UNIT/1 ML VIAL SUBCUT SCH ×2 (05:57→18:51)
[2019-05-08 07:06] LABS: Calcium 7.7 MG/DL (8.5-10.1); Osmolality,Calculated 307.7 MOS/KG (273-304)
[2019-05-08 07:11] LABS: Basophils % 0.3 % (0.0-0.8); Eosinophils # 0.1 10*3/uL (0.0-0.87); Hematocrit 21.2 VOL% (35.7-47.0); Hemoglobin 6.6 GM/DL (12.0-16.0); Immature Granulocytes % 0.6 %; Immature Granulocytes Absolute 0.05 #; Lymphocytes # 0.9 10*3/uL (1.4-4.0); Lymphocytes % 10.2 % (21.3-54.2); Mean Corpuscular HGB Conc 31.1 GM/DL (32-36); Mean Corpuscular Volume 87.6 FL (87-102); Mean Platelet Volume 9.5 FL (9.6-12.0); Monocytes % 9.8 % (1.7-12.7); Neutrophils % 78.1 % (38.7-73.9); Platelet Count 394 T/CUMM (130-400); Red Blood Count 2.42 MC/CUMM (3.8-5.5); Red Cell Distribution Width 15.8 % (9.3-17.3)
[2019-05-08] MEDS: DOXAZOSIN 1 MG TABLET PO SCH (08:50)
[2019-05-08] MEDS: CALCITRIOL 0.25 MCG CAPSULE PO SCH (08:50)
[2019-05-08] MEDS: buPROPion SR 100 MG TABLET PO SCH ×2 (08:50→15:29)
[2019-05-08] MEDS: carvediloL 25 MG TABLET PO SCH ×2 (08:50→18:33)
[2019-05-08] MEDS: SODIUM BICARBONATE 650 MG TABLET PO SCH ×3 (08:50→22:30)
[2019-05-08] MEDS: ASPIRIN EC 81 MG TABLET PO SCH (08:50)
[2019-05-08] MEDS: FUROSEMIDE 80 MG TABLET PO SCH (08:51)
[2019-05-08] MEDS: INSULIN NPH 100 UNIT/ML SUBCUT SCH (08:51)
[2019-05-08] MEDS: INSULIN LISPRO 100 UNIT/ML SUBCUT SCH ×4 (08:52→22:30)
[2019-05-08] MEDS ORDERED: SODIUM CHLORIDE 0.9% 1,000 ML IV PRN (10:27)
[2019-05-08 10:33] LABS: % Iron Saturation 8.3 % (18-50); Ferritin 139.9 ng/ml (8-252)
[2019-05-08 10:39] LABS: Folate 6.3 NG/ML (5.4-24.0)
[2019-05-08] MEDS ORDERED: IRON SUCROSE 100 MG/5 ML VIAL IV SCH (13:30)
[2019-05-08] MEDS ORDERED: FUROSEMIDE 40 MG/4 ML VIAL IV ONE (15:24)
[2019-05-08] MEDS ORDERED: INSULIN NPH 100 UNIT/ML SUBCUT SCH (16:30)
[2019-05-08] MEDS: IRON SUCROSE 100 MG in SODIUM CHLORIDE 0.9% 100 ML IV SCH (18:31)
[2019-05-09 05:19] LABS: Basophils % 0.3 % (0.0-0.8); Eosinophils # 0.1 10*3/uL (0.0-0.87); Hematocrit 25.9 VOL% (35.7-47.0); Hemoglobin 8.2 GM/DL (12.0-16.0); Immature Granulocytes % 0.9 %; Immature Granulocytes Absolute 0.08 #; Lymphocytes # 0.8 10*3/uL (1.4-4.0); Lymphocytes % 8.7 % (21.3-54.2); Mean Corpuscular HGB Conc 31.7 GM/DL (32-36); Mean Corpuscular Volume 86.6 FL (87-102); Mean Platelet Volume 10.2 FL (9.6-12.0); Monocytes % 9.1 % (1.7-12.7); Platelet Count 393 T/CUMM (130-400); Red Blood Count 2.99 MC/CUMM (3.8-5.5); Red Cell Distribution Width 15.4 % (9.3-17.3); White Blood Count 9.2 T/CUMM (4-12)
[2019-05-09 05:33] LABS: Calcium 7.5 MG/DL (8.5-10.1); Osmolality,Calculated 309.7 MOS/KG (273-304)
[2019-05-09] MEDS: HEPARIN 5,000 UNIT/1 ML VIAL SUBCUT SCH ×2 (07:00→17:09)
[2019-05-09] MEDS: INSULIN NPH 100 UNIT/ML SUBCUT SCH ×2 (09:36→17:03)
[2019-05-09] MEDS: INSULIN LISPRO 100 UNIT/ML SUBCUT SCH ×4 (09:37→22:35)
[2019-05-09] MEDS: IRON SUCROSE 100 MG in SODIUM CHLORIDE 0.9% 100 ML IV SCH (09:48)
[2019-05-09] MEDS: FUROSEMIDE 80 MG TABLET PO SCH (09:49)
[2019-05-09] MEDS: CALCITRIOL 0.25 MCG CAPSULE PO SCH (09:49)
[2019-05-09] MEDS: buPROPion SR 100 MG TABLET PO SCH ×2 (09:49→17:04)
[2019-05-09] MEDS: carvediloL 25 MG TABLET PO SCH ×2 (09:49→17:05)
[2019-05-09] MEDS: DOXAZOSIN 1 MG TABLET PO SCH (09:49)
[2019-05-09] MEDS: SODIUM BICARBONATE 650 MG TABLET PO SCH ×3 (09:50→22:35)
[2019-05-09] MEDS: LATANOPROST 0.005% OPH SOLN 2.5 ML BOTTLE BOTH EYES SCH (22:35)
[2019-05-10] MEDS: HEPARIN 5,000 UNIT/1 ML VIAL SUBCUT SCH ×2 (05:11→17:27)
[2019-05-10] MEDS: ACETAMINOPHEN 325 MG TABLET PO PRN (05:17)
[2019-05-10 06:36] LABS: Basophils # 0.1 10*3/uL (0.0-0.2); Basophils % 0.5 % (0.0-0.8); Eosinophils # 0.1 10*3/uL (0.0-0.87); Hematocrit 27.6 VOL% (35.7-47.0); Hemoglobin 8.7 GM/DL (12.0-16.0); Immature Granulocytes % 0.8 %; Immature Granulocytes Absolute 0.08 #; Lymphocytes # 0.6 10*3/uL (1.4-4.0); Lymphocytes % 6.6 % (21.3-54.2); Mean Corpuscular HGB Conc 31.5 GM/DL (32-36); Mean Corpuscular Volume 88.5 FL (87-102); Mean Platelet Volume 10.9 FL (9.6-12.0); Monocytes % 6.6 % (1.7-12.7); Neutrophils % 84.5 % (38.7-73.9); Platelet Count 318 T/CUMM (130-400); Red Blood Count 3.12 MC/CUMM (3.8-5.5); Red Cell Distribution Width 15.4 % (9.3-17.3); White Blood Count 9.7 T/CUMM (4-12)
[2019-05-10 07:01] LABS: Calcium 8.1 MG/DL (8.5-10.1)
[2019-05-10 07:03] LABS: Hypochromasia 1+; Ovalocytes Slight; Platelet Estimate Adequate
[2019-05-10] MEDS: INSULIN NPH 100 UNIT/ML SUBCUT SCH ×2 (09:58→17:26)
[2019-05-10] MEDS: INSULIN LISPRO 100 UNIT/ML SUBCUT SCH ×4 (09:59→21:56)
[2019-05-10] MEDS: CALCITRIOL 0.25 MCG CAPSULE PO SCH (09:59)
[2019-05-10] MEDS: DOXAZOSIN 1 MG TABLET PO SCH (09:59)
[2019-05-10] MEDS: SODIUM BICARBONATE 650 MG TABLET PO SCH ×3 (09:59→21:56)
[2019-05-10] MEDS: carvediloL 25 MG TABLET PO SCH ×2 (10:00→17:27)
[2019-05-10] MEDS: buPROPion SR 100 MG TABLET PO SCH ×2 (10:00→15:53)
[2019-05-10] MEDS: ASPIRIN EC 81 MG TABLET PO SCH (10:00)
[2019-05-10] MEDS: FUROSEMIDE 80 MG TABLET PO SCH (10:00)
[2019-05-10] MEDS: IRON SUCROSE 100 MG in SODIUM CHLORIDE 0.9% 100 ML IV SCH (10:01)
[2019-05-10] MEDS: LATANOPROST 0.005% OPH SOLN 2.5 ML BOTTLE BOTH EYES SCH (21:57)
[2019-05-11] MEDS: hydrALAZINE 20 MG/1 ML VIAL IV PRN (04:52)
[2019-05-11] MEDS: HEPARIN 5,000 UNIT/1 ML VIAL SUBCUT SCH ×2 (05:02→17:27)
[2019-05-11] MEDS: INSULIN LISPRO 100 UNIT/ML SUBCUT SCH ×4 (08:58→21:42)
[2019-05-11] MEDS: INSULIN NPH 100 UNIT/ML SUBCUT SCH ×2 (08:58→16:30)
[2019-05-11] MEDS: DOXAZOSIN 1 MG TABLET PO SCH (09:01)
[2019-05-11] MEDS: FUROSEMIDE 80 MG TABLET PO SCH (09:01)
[2019-05-11] MEDS: carvediloL 25 MG TABLET PO SCH ×2 (09:01→16:30)
[2019-05-11] MEDS: buPROPion SR 100 MG TABLET PO SCH ×2 (09:01→15:43)
[2019-05-11] MEDS: CALCITRIOL 0.25 MCG CAPSULE PO SCH (09:02)
[2019-05-11] MEDS: SODIUM BICARBONATE 650 MG TABLET PO SCH ×3 (09:02→21:40)
[2019-05-11] MEDS: IRON SUCROSE 100 MG in SODIUM CHLORIDE 0.9% 100 ML IV SCH (10:28)
[2019-05-11] MEDS: ACETAMINOPHEN 325 MG TABLET PO PRN (21:40)
[2019-05-12] MEDS: LATANOPROST 0.005% OPH SOLN 2.5 ML BOTTLE BOTH EYES SCH (03:39)
[2019-05-12] MEDS: ACETAMINOPHEN 325 MG TABLET PO PRN (04:03)
[2019-05-12] MEDS: HEPARIN 5,000 UNIT/1 ML VIAL SUBCUT SCH (05:56)
[2019-05-12 06:24] LABS: Calcium 7.6 MG/DL (8.5-10.1); Osmolality,Calculated 322.8 MOS/KG (273-304)
[2019-05-12] MEDS: INSULIN LISPRO 100 UNIT/ML SUBCUT SCH ×2 (08:10→12:45)
[2019-05-12] MEDS: SODIUM BICARBONATE 650 MG TABLET PO SCH ×2 (08:10→15:21)
[2019-05-12] MEDS: INSULIN NPH 100 UNIT/ML SUBCUT SCH (08:10)
[2019-05-12] MEDS: DOXAZOSIN 1 MG TABLET PO SCH (08:10)
[2019-05-12] MEDS: ASPIRIN EC 81 MG TABLET PO SCH (08:11)
[2019-05-12] MEDS: carvediloL 25 MG TABLET PO SCH (08:11)
[2019-05-12] MEDS: CALCITRIOL 0.25 MCG CAPSULE PO SCH (08:11)
[2019-05-12] MEDS: FUROSEMIDE 80 MG TABLET PO SCH (08:11)
[2019-05-12] MEDS: buPROPion SR 100 MG TABLET PO SCH ×2 (08:11→15:21)
[2019-05-12] MEDS ORDERED: INSULIN NPH 100 UNIT/ML SUBCUT SCH (09:22)
[2019-05-12] MEDS: IRON SUCROSE 100 MG in SODIUM CHLORIDE 0.9% 100 ML IV SCH (09:51)
[2019-05-12 13:37] VITALS: BP 164/92
== END 2019-05-12 15:55 | disposition home or self-care (01) | DRG 637 ==
LOC: N.ED 10:33 → N.EDINP 12:58 → SUATTDRO 12:58 → N.CC 14:10 → N.5E 04-30 16:24
PROVIDERS: ADMIT Family Medicine; ATTEND Internal Medicine

== ENCOUNTER 2019-05-21 02:30 | Inpatient (IN) ==
[2019-05-21] MEDS ORDERED: SODIUM CHLORIDE 0.9% 1,000 ML IV STA (02:50)
[2019-05-21] MEDS ORDERED: INSULIN REGULAR 100 UNIT/ML IV STA (02:51)
[2019-05-21 03:38] LABS: Allen Test Positive; Pt O2 Delivery Device Room Air
[2019-05-21 03:43] LABS: ABG Base Excess -23.4 MMOL/L (-2.5-2.5); ABG HCO3 7.3 MMOL/L (20-26); ABG Oxygen Saturation 97.6 % (95-100); ABG TCO2 5.1 MMOL/L (23-27)
[2019-05-21 03:50] LABS: ABG PH 7.089 (7.35-7.45)
[2019-05-21 04:01] LABS: Albumin 2.2 G/DL (3.4-5.0); Bilirubin,Total 0.4 MG/DL (0.2-1.0); Calcium 7.6 MG/DL (8.5-10.1); Osmolality,Calculated 357.2 MOS/KG (273-304); Total Protein 6.8 G/DL (6.4-8.3)
[2019-05-21 04:02] LABS: Basophils % 0.2 % (0.0-0.8); Hemoglobin 7.1 GM/DL (12.0-16.0); Immature Granulocytes % 1.2 %; Immature Granulocytes Absolute 0.12 #; Lymphocytes # 0.4 10*3/uL (1.4-4.0); Lymphocytes % 3.7 % (21.3-54.2); Mean Corpuscular HGB Conc 26.3 GM/DL (32-36); Mean Corpuscular Volume 106.3 FL (87-102); Monocytes % 2.6 % (1.7-12.7); Neutrophils % 92.3 % (38.7-73.9); Platelet Count 330 T/CUMM (130-400); Red Blood Count 2.54 MC/CUMM (3.8-5.5); Red Cell Distribution Width 16.4 % (9.3-17.3); White Blood Count 9.9 T/CUMM (4-12)
[2019-05-21 04:07] LABS: Hypochromasia 1+; Lymphocytes 1 % (20-55); Platelet Estimate Adequate; Segmented Neutrophils 97 % (50-85); Total Cells Counted 100
[2019-05-21] MEDS ORDERED: DEXTROSE 50% 25 GM/50 ML VIAL IV PRN ×2 (04:26)
[2019-05-21] MEDS ORDERED: SODIUM PHOSPHATE IV PRN (04:26)
[2019-05-21] MEDS ORDERED: MAGNESIUM SULF RIDER 4 GM in PREMIX 1 EACH IV PRN (04:26)
[2019-05-21] MEDS ORDERED: SODIUM CHLORIDE 0.9% IV PRN (04:26)
[2019-05-21] MEDS ORDERED: SODIUM BICARB INJ 100 MEQ in STERILE WATER INJ 400 ML IV PRN (04:26)
[2019-05-21] MEDS ORDERED: MAGNESIUM SULF RIDER 2 GM in PREMIX 1 EACH IV PRN (04:26)
[2019-05-21] MEDS ORDERED: SODIUM CHLORIDE 0.9% 1,000 ML IV SCH ×4 (04:30→08:30)
[2019-05-21] MEDS: INSULIN REGULAR DRIP 100 ML IV SCH ×2 (05:10→19:58)
[2019-05-21 07:15] LABS: Amorphous Crystals,Urine Few /HPF (Few); Apearance,Urine Slightly Hazy (Clear); Bacteria,Urine Occasional /HPF (Few); Bilirubin,Urine Negative (Negative); Blood, Urine Small mg/dL (Negative); Glucose,Urine (UA) >=500 mg/dL (Negative); Ketones,Urine 20 mg/dL (Negative); Nitrite,Urine Negative (Negative); Protein,Urine 100 MG/DL; RBC,Urine 1 /HPF (0-4); Squamous Epithelial Cell,Urine Occasional /HPF (0-10); Urine Color Straw (Yellow); Urine Specific Gravity 1.014 (1.001-1.035); Urine Urobilinogen < 2.0 EU/DL (0.2-1.0); WBC,Urine <1 /HPF (0-6)
[2019-05-21] MEDS ORDERED: ENOXAPARIN 30 MG/0.3 ML SYRINGE SUBCUT SCH (09:00)
[2019-05-21 10:04] LABS: Calcium 7.5 MG/DL (8.5-10.1); Osmolality,Calculated 346.5 MOS/KG (273-304)
[2019-05-21] MEDS: carvediloL 25 MG TABLET PO SCH ×2 (11:18→21:05)
[2019-05-21] MEDS: ASPIRIN EC 81 MG TABLET PO SCH (11:18)
[2019-05-21] MEDS: CALCITRIOL 0.25 MCG CAPSULE PO SCH (11:18)
[2019-05-21] MEDS: MULTIVITAMIN (CENTRUM) TABLET PO SCH (11:18)
[2019-05-21] MEDS: ARIPiprazole 10 MG TABLET PO SCH (11:18)
[2019-05-21] MEDS: SODIUM CHLORIDE 0.45% 1,000 ML IV SCH ×2 (14:10→23:05)
[2019-05-21] MEDS: cefTRIAXone 1,000 MG in SYRINGE 1 EACH IV SCH (14:10)
[2019-05-21] MEDS ORDERED: SODIUM BICARBONATE 650 MG TABLET PO SCH (15:00)
[2019-05-21] MEDS: buPROPion SR 100 MG TABLET PO SCH (15:13)
[2019-05-21] MEDS: SODIUM BICARBONATE 650 MG TABLET PO SCH ×2 (15:13→21:05)
[2019-05-21 16:27] LABS: Calcium 7.3 MG/DL (8.5-10.1); Osmolality,Calculated 342.7 MOS/KG (273-304)
[2019-05-21] MEDS: POTASSIUM CHLORIDE RIDER 10 MEQ in PREMIX 1 EACH IV PRN ×2 (17:28→23:16)
[2019-05-21] MEDS ORDERED: SODIUM CHLORIDE 0.45% 1,000 ML IV SCH (21:26)
[2019-05-21 22:32] LABS: Calcium 7.6 MG/DL (8.5-10.1); Osmolality,Calculated 328.7 MOS/KG (273-304)
[2019-05-21] MEDS: LATANOPROST 0.005% OPH SOLN 2.5 ML BOTTLE BOTH EYES SCH (23:05)
[2019-05-21] MEDS: hydrALAZINE 20 MG/1 ML VIAL IV PRN (23:36)
[2019-05-22] MEDS: POTASSIUM CHLORIDE RIDER 10 MEQ in PREMIX 1 EACH IV PRN ×2 (00:19→06:42)
[2019-05-22] MEDS: hydrALAZINE 20 MG/1 ML VIAL IV PRN ×3 (01:23→18:12)
[2019-05-22 06:13] LABS: Calcium 7.9 MG/DL (8.5-10.1); Osmolality,Calculated 314.4 MOS/KG (273-304)
[2019-05-22 06:21] LABS: Basophils % 0.2 % (0.0-0.8); Eosinophils # 0.2 10*3/uL (0.0-0.87); Eosinophils % 1.9 % (0.00-10.9); Hematocrit 21.5 VOL% (35.7-47.0); Immature Granulocytes % 1.9 %; Immature Granulocytes Absolute 0.19 #; Lymphocytes % 10.1 % (21.3-54.2); Mean Corpuscular HGB Conc 32.6 GM/DL (32-36); Mean Corpuscular Volume 86.7 FL (87-102); Mean Platelet Volume 10.5 FL (9.6-12.0); Monocytes % 5.6 % (1.7-12.7); Neutrophils % 80.3 % (38.7-73.9); Platelet Count 329 T/CUMM (130-400); Red Blood Count 2.48 MC/CUMM (3.8-5.5); White Blood Count 10.2 T/CUMM (4-12)
[2019-05-22] MEDS: INSULIN REGULAR DRIP 100 ML IV SCH (06:34)
[2019-05-22] MEDS: SODIUM CHLORIDE 0.45% 1,000 ML IV SCH (06:35)
[2019-05-22 07:28] LABS: Hepatitis B Core IgM Quant < 0.05 Index; Hepatitis B Surface Ag Quant < 0.10 Index; Hepatitis B Surface Ag Result Negative (Negative); Hepatitis C Virus Ab Quant 0.34 Index; Hepatitis C Virus Ab Result Negative (Negative)
[2019-05-22] MEDS: MULTIVITAMIN (CENTRUM) TABLET PO SCH (08:36)
[2019-05-22] MEDS: ARIPiprazole 10 MG TABLET PO SCH (08:36)
[2019-05-22] MEDS: buPROPion SR 100 MG TABLET PO SCH ×2 (08:37→15:12)
[2019-05-22] MEDS: DOXAZOSIN 4 MG TABLET PO SCH (08:37)
[2019-05-22] MEDS: carvediloL 25 MG TABLET PO SCH ×2 (08:37→22:50)
[2019-05-22] MEDS: SODIUM BICARBONATE 650 MG TABLET PO SCH ×3 (08:37→22:50)
[2019-05-22] MEDS: CALCITRIOL 0.25 MCG CAPSULE PO SCH (08:37)
[2019-05-22] MEDS: FERROUS SULFATE 325 MG TABLET PO SCH (08:37)
[2019-05-22 09:58] LABS: Calcium 7.5 MG/DL (8.5-10.1); Osmolality,Calculated 320.8 MOS/KG (273-304)
[2019-05-22] MEDS: INSULIN LISPRO 100 UNIT/ML SUBCUT SCH ×4 (10:26→22:50)
[2019-05-22] MEDS: cefTRIAXone 1,000 MG in SYRINGE 1 EACH IV SCH (14:22)
[2019-05-22] MEDS: INSULIN NPH 100 UNIT/ML SUBCUT SCH (18:07)
[2019-05-22] MEDS: LATANOPROST 0.005% OPH SOLN 2.5 ML BOTTLE BOTH EYES SCH (22:51)
[2019-05-23] MEDS: hydrALAZINE 20 MG/1 ML VIAL IV PRN ×3 (01:53→17:58)
[2019-05-23] MEDS: INSULIN LISPRO 100 UNIT/ML SUBCUT SCH ×5 (01:53→21:06)
[2019-05-23 04:57] LABS: Basophils % 0.3 % (0.0-0.8); Eosinophils # 0.2 10*3/uL (0.0-0.87); Eosinophils % 2.6 % (0.00-10.9); Hematocrit 21.8 VOL% (35.7-47.0); Hemoglobin 6.9 GM/DL (12.0-16.0); Immature Granulocytes % 1.9 %; Immature Granulocytes Absolute 0.17 #; Lymphocytes # 1.2 10*3/uL (1.4-4.0); Lymphocytes % 13.6 % (21.3-54.2); Mean Corpuscular HGB Conc 31.7 GM/DL (32-36); Mean Corpuscular Volume 86.5 FL (87-102); Mean Platelet Volume 10.5 FL (9.6-12.0); Monocytes % 6.9 % (1.7-12.7); NRBC # 0.02 10*3/uL; Neutrophils % 74.7 % (38.7-73.9); Platelet Count 353 T/CUMM (130-400); Red Blood Count 2.52 MC/CUMM (3.8-5.5); Red Cell Distribution Width 15.4 % (9.3-17.3); White Blood Count 8.9 T/CUMM (4-12)
[2019-05-23 05:11] LABS: Calcium 7.7 MG/DL (8.5-10.1); Osmolality,Calculated 314.8 MOS/KG (273-304)
[2019-05-23] MEDS ORDERED: ACETAMINOPHEN 325 MG TABLET PO PRN (06:02)
[2019-05-23] MEDS: INSULIN NPH 100 UNIT/ML SUBCUT SCH ×2 (08:41→17:12)
[2019-05-23] MEDS: FERROUS SULFATE 325 MG TABLET PO SCH (08:42)
[2019-05-23] MEDS: DOXAZOSIN 4 MG TABLET PO SCH (08:42)
[2019-05-23] MEDS: SODIUM BICARBONATE 650 MG TABLET PO SCH ×3 (08:43→21:02)
[2019-05-23] MEDS: ASPIRIN EC 81 MG TABLET PO SCH (08:43)
[2019-05-23] MEDS: ARIPiprazole 10 MG TABLET PO SCH (08:43)
[2019-05-23] MEDS: buPROPion SR 100 MG TABLET PO SCH ×2 (08:43→14:54)
[2019-05-23] MEDS: CALCITRIOL 0.25 MCG CAPSULE PO SCH (08:43)
[2019-05-23] MEDS: carvediloL 25 MG TABLET PO SCH ×2 (08:44→21:02)
[2019-05-23] MEDS: MULTIVITAMIN (CENTRUM) TABLET PO SCH (08:44)
[2019-05-23] MEDS ORDERED: INSULIN LISPRO 100 UNIT/ML SUBCUT SCH (12:00)
[2019-05-23] MEDS ORDERED: SODIUM CHLORIDE 0.9% 1,000 ML IV PRN (13:37)
[2019-05-23 13:52] LABS: Folate 4.6 NG/ML (5.4-24.0); Vitamin B12 1092 PG/ML (211-911)
[2019-05-23 13:54] LABS: Basophils % 0.3 % (0.0-0.8); Eosinophils # 0.2 10*3/uL (0.0-0.87); Hematocrit 22.1 VOL% (35.7-47.0); Immature Granulocytes % 3.3 %; Immature Granulocytes Absolute 0.25 #; Lymphocytes # 1.3 10*3/uL (1.4-4.0); Lymphocytes % 17.5 % (21.3-54.2); Mean Corpuscular HGB Conc 31.7 GM/DL (32-36); Mean Corpuscular Volume 86.3 FL (87-102); Mean Platelet Volume 9.9 FL (9.6-12.0); Monocytes % 7.3 % (1.7-12.7); Neutrophils % 68.6 % (38.7-73.9); Platelet Count 340 T/CUMM (130-400); Red Blood Count 2.56 MC/CUMM (3.8-5.5); Red Cell Distribution Width 15.9 % (9.3-17.3); White Blood Count 7.6 T/CUMM (4-12)
[2019-05-23] MEDS: cefTRIAXone 1,000 MG in SYRINGE 1 EACH IV SCH (14:53)
[2019-05-23 14:54] LABS: Sedimentation Rate-Westergren 97 MM/HR (0-20)
[2019-05-23] MEDS: LATANOPROST 0.005% OPH SOLN 2.5 ML BOTTLE BOTH EYES SCH (21:07)
[2019-05-24] MEDS: hydrALAZINE 20 MG/1 ML VIAL IV PRN ×2 (02:21→06:14)
[2019-05-24 05:24] LABS: Basophils % 0.5 % (0.0-0.8); Eosinophils # 0.3 10*3/uL (0.0-0.87); Eosinophils % 3.4 % (0.00-10.9); Hematocrit 27.9 VOL% (35.7-47.0); Hemoglobin 8.9 GM/DL (12.0-16.0); Immature Granulocytes % 4.6 %; Immature Granulocytes Absolute 0.34 #; Lymphocytes # 1.3 10*3/uL (1.4-4.0); Lymphocytes % 16.9 % (21.3-54.2); Mean Corpuscular HGB Conc 31.9 GM/DL (32-36); Mean Corpuscular Volume 86.6 FL (87-102); Mean Platelet Volume 10.9 FL (9.6-12.0); NRBC # 0.02 10*3/uL; Neutrophils % 66.6 % (38.7-73.9); Platelet Count 350 T/CUMM (130-400); Red Blood Count 3.22 MC/CUMM (3.8-5.5); Red Cell Distribution Width 15.9 % (9.3-17.3); White Blood Count 7.4 T/CUMM (4-12)
[2019-05-24 06:00] LABS: Alanine Aminotransferase 14 U/L (13-56); Albumin 1.9 G/DL (3.4-5.0); Alkaline Phosphatase 148 U/L (45-117); Aspartate Amino Transferase 8 U/L (0-37); Bilirubin,Total < 0.39 MG/DL (0.2-1.0); Blood Urea Nitrogen 79 MG/DL (7-18); Calcium 7.3 MG/DL (8.5-10.1); Estimated Glom Filtration Rate 10 ML/MIN; Glucose 266 MG/DL (74-106); Osmolality,Calculated 322.6 MOS/KG (273-304); Total Protein 5.9 G/DL (6.4-8.3)
[2019-05-24] MEDS: buPROPion SR 100 MG TABLET PO SCH (08:23)
[2019-05-24] MEDS: SODIUM BICARBONATE 650 MG TABLET PO SCH (08:24)
[2019-05-24] MEDS: DOXAZOSIN 4 MG TABLET PO SCH (08:24)
[2019-05-24] MEDS: CALCITRIOL 0.25 MCG CAPSULE PO SCH (08:24)
[2019-05-24] MEDS: carvediloL 25 MG TABLET PO SCH (08:24)
[2019-05-24] MEDS: MULTIVITAMIN (CENTRUM) TABLET PO SCH (08:24)
[2019-05-24] MEDS: FERROUS SULFATE 325 MG TABLET PO SCH (08:24)
[2019-05-24] MEDS: ARIPiprazole 10 MG TABLET PO SCH (08:24)
[2019-05-24] MEDS: INSULIN LISPRO 100 UNIT/ML SUBCUT SCH ×2 (08:26→12:14)
[2019-05-24] MEDS: INSULIN NPH 100 UNIT/ML SUBCUT SCH (08:26)
[2019-05-24] MEDS: POTASSIUM CHLORIDE RIDER 10 MEQ in PREMIX 1 EACH IV PRN ×2 (08:30→09:33)
[2019-05-24 09:13] LABS: Hemoglobin A1 (Alkaline) 97.8 % (96.5-98.5); Hemoglobin A2 (Alkaline) 2.2 % (1.5-3.5)
[2019-05-24 12:15] VITALS: BP 155/89
== END 2019-05-24 14:07 | disposition home or self-care (01) | DRG 420 ==
LOC: N.ED 02:30 → SUATTDRO 04:26 → N.EDINP 04:26 → N.CC 08:01 → N.4E 05-22 16:39
PROVIDERS: ADMIT Internal Medicine; ATTEND Hospitalist

== ENCOUNTER 2020-04-26 18:13 | Inpatient (IN) ==
[2020-04-26] MEDS ORDERED: propofoL 200 MG/20 ML VIAL IV STA (19:00)
[2020-04-26] MEDS ORDERED: ceFAZolin 1,000 MG VIAL ONE (19:53)
[2020-04-26] MEDS ORDERED: DIPHTHERIA/TETANUS ADULT VACCINE 0.5 ML SYRINGE IM ONE (19:58)
[2020-04-26] MEDS ORDERED: propofoL 200 MG/20 ML VIAL IV ONE (19:59)
[2020-04-26] MEDS ORDERED: LIDOCAINE 2% 5 ML VIAL ONE (19:59)
[2020-04-26] MEDS ORDERED: fentaNYL 100 MCG/2 ML VIAL ONE (19:59)
[2020-04-26] MEDS ORDERED: MIDAZOLAM 2 MG/2 ML VIAL ONE (20:00)
[2020-04-26] MEDS ORDERED: diphenhydrAMINE CAP 25 MG CAPSULE PO PRN (20:25)
[2020-04-26] MEDS ORDERED: ONDANSETRON 4 MG/2 ML VIAL IV PRN (20:25)
[2020-04-26] MEDS ORDERED: MORPHINE 4 MG/1 ML VIAL IV PRN (20:25)
[2020-04-26] MEDS ORDERED: PROMETHAZINE 25 MG/1 ML VIAL IM PRN (20:25)
[2020-04-26] MEDS ORDERED: GLUCAGON 1 MG VIAL IM PRN (20:29)
[2020-04-26] MEDS ORDERED: LACTATED RINGERS 1,000 ML IV SCH (20:30)
[2020-04-26] MEDS ORDERED: METOCLOPRAMIDE 10 MG/2 ML VIAL ONE (20:50)
[2020-04-26 20:52] LABS: Basophils % 0.2 % (0.0-0.8); Hematocrit 24.7 VOL% (35.7-47.0); Hemoglobin 7.5 GM/DL (12.0-16.0); Immature Granulocytes % 0.9 %; Immature Granulocytes Absolute 0.07 #; Lymphocytes # 0.6 10*3/uL (1.4-4.0); Lymphocytes % 6.9 % (21.3-54.2); Mean Corpuscular HGB Conc 30.4 GM/DL (32-36); Mean Corpuscular Volume 84.6 FL (87-102); Mean Platelet Volume 10.7 FL (9.6-12.0); Monocytes % 6.8 % (1.7-12.7); NRBC # 0.02 10*3/uL; Neutrophils % 85.2 % (38.7-73.9); Platelet Count 253 T/CUMM (130-400); Red Blood Count 2.92 MC/CUMM (3.8-5.5); Red Cell Distribution Width 17.7 % (9.3-17.3); White Blood Count 8.1 T/CUMM (4-12)
[2020-04-26 21:02] LABS: INR 1.1; PT Patient Result 12.1 SECS (9.8-11.9); Partial Thromboplastin Time 30.2 SECS (23.9-33.8)
[2020-04-26 21:20] LABS: Alanine Aminotransferase 35 U/L (13-56); Alkaline Phosphatase 211 U/L (45-117); Aspartate Amino Transferase 21 U/L (0-37); Bilirubin,Total < 0.39 MG/DL (0.2-1.0); Blood Urea Nitrogen 96 MG/DL (7-18); Calcium 6.3 MG/DL (8.5-10.1); Estimated Glom Filtration Rate 9 ML/MIN; Glucose 363 MG/DL (74-106); Osmolality,Calculated 330.8 MOS/KG (273-304); Total Protein 5.7 G/DL (6.4-8.3)
[2020-04-26] MEDS ORDERED: ONDANSETRON 4 MG/2 ML VIAL ONE (21:36)
[2020-04-26] MEDS ORDERED: NEOSTIGMINE 10 MG/10 ML VIAL ONE (21:37)
[2020-04-26] MEDS ORDERED: GLYCOPYRROLATE 0.4 MG/2 ML VIAL ONE (21:37)
[2020-04-26] MEDS ORDERED: ALBUTEROL INHALER 18 GM INH ONE (21:51)
[2020-04-26] MEDS ORDERED: PHENYLEPHRINE 1 MG/10 ML SYRINGE IV ONE (22:16)
[2020-04-26] MEDS ORDERED: flumazeniL 0.5 MG/5 ML VIAL IV ONE (22:19)
[2020-04-26] MEDS ORDERED: SEVOFLURANE 1 UNIT/15 MINUTE INH ONE (22:48)
[2020-04-27] MEDS: INSULIN REGULAR 100 UNIT/ML SUBCUT SCH ×5 (00:06→21:25)
[2020-04-27] MEDS: SODIUM CHLORIDE 0.9% 1,000 ML IV SCH ×2 (01:35→23:11)
[2020-04-27] MEDS: ceFAZolin 1,000 MG in SYRINGE 1 EACH IV SCH ×3 (04:50→21:23)
[2020-04-27] MEDS ORDERED: carvediloL 25 MG TABLET PO SCH (08:00)
[2020-04-27] MEDS ORDERED: DEXTROSE 50% 25 GM/50 ML VIAL IV PRN (08:17)
[2020-04-27] MEDS ORDERED: GLUCAGON 1 MG VIAL IM PRN (08:17)
[2020-04-27] MEDS ORDERED: DOXAZOSIN 1 MG TABLET PO SCH (09:00)
[2020-04-27 09:40] LABS: Basophils % 0.2 % (0.0-0.8); Eosinophils % 0.2 % (0.00-10.9); Hemoglobin 6.7 GM/DL (12.0-16.0); Immature Granulocytes % 0.6 %; Immature Granulocytes Absolute 0.05 #; Lymphocytes # 0.5 10*3/uL (1.4-4.0); Mean Corpuscular HGB Conc 30.5 GM/DL (32-36); Mean Corpuscular Volume 86.6 FL (87-102); Mean Platelet Volume 10.3 FL (9.6-12.0); Monocytes % 7.9 % (1.7-12.7); Neutrophils % 85.1 % (38.7-73.9); Platelet Count 256 T/CUMM (130-400); Red Blood Count 2.54 MC/CUMM (3.8-5.5); Red Cell Distribution Width 17.5 % (9.3-17.3); White Blood Count 8.5 T/CUMM (4-12)
[2020-04-27 09:58] LABS: Calcium 6.5 MG/DL (8.5-10.1); Osmolality,Calculated 323.7 MOS/KG (273-304)
[2020-04-27] MEDS: INSULIN NPH 100 UNIT/ML SUBCUT SCH ×2 (10:19→16:58)
[2020-04-27] MEDS: buPROPion SR 100 MG TABLET PO SCH ×2 (10:19→15:47)
[2020-04-27] MEDS: FUROSEMIDE 40 MG TABLET PO SCH ×2 (10:20→15:48)
[2020-04-27] MEDS: POTASSIUM CHLORIDE 20 MEQ TABLET PO SCH (10:20)
[2020-04-27] MEDS: ARIPiprazole 10 MG TABLET PO SCH (10:20)
[2020-04-27] MEDS: FERROUS SULFATE 325 MG TABLET PO SCH (10:20)
[2020-04-27] MEDS: metOLazone 2.5 MG TABLET PO SCH (10:25)
[2020-04-27] MEDS ORDERED: SODIUM CHLORIDE 0.9% 1,000 ML IV PRN (12:44)
[2020-04-27 14:31] LABS: Bacteria,Urine Occasional /HPF (Few); Bilirubin,Urine Negative (Negative); Blood, Urine Small mg/dL (Negative); Glucose,Urine (UA) >=500 mg/dL (Negative); Ketones,Urine Negative (Negative); Nitrite,Urine Negative (Negative); Protein,Urine 100 MG/DL; RBC,Urine 1 /HPF (0-4); Squamous Epithelial Cell,Urine Occasional /HPF (0-10); Urine Appearance CLEAR (Clear); Urine Color Straw (Yellow); Urine Specific Gravity 1.007 (1.001-1.035); Urine Urobilinogen < 2.0 EU/DL (0.2-1.0); WBC,Urine 2 /HPF (0-6)
[2020-04-27] MEDS: LATANOPROST 0.005% OPH SOLN 2.5 ML BOTTLE BOTH EYES SCH (21:23)
[2020-04-28] MEDS: INSULIN REGULAR 100 UNIT/ML SUBCUT SCH ×6 (03:10→23:04)
[2020-04-28] MEDS: DEXTROSE 50% 25 GM/50 ML VIAL IV PRN ×2 (04:54→05:52)
[2020-04-28] MEDS: ceFAZolin 1,000 MG in SYRINGE 1 EACH IV SCH ×3 (04:55→20:34)
[2020-04-28 05:46] LABS: Basophils % 0.2 % (0.0-0.8); Eosinophils % 0.1 % (0.00-10.9); Hematocrit 25.8 VOL% (35.7-47.0); Hemoglobin 8.2 GM/DL (12.0-16.0); Immature Granulocytes % 0.8 %; Immature Granulocytes Absolute 0.08 #; Lymphocytes # 0.7 10*3/uL (1.4-4.0); Lymphocytes % 6.5 % (21.3-54.2); Mean Corpuscular HGB Conc 31.8 GM/DL (32-36); Mean Corpuscular Volume 85.1 FL (87-102); Mean Platelet Volume 10.4 FL (9.6-12.0); Monocytes % 9.3 % (1.7-12.7); NRBC # 0.03 10*3/uL; Neutrophils % 83.1 % (38.7-73.9); Platelet Count 278 T/CUMM (130-400); Red Blood Count 3.03 MC/CUMM (3.8-5.5); Red Cell Distribution Width 16.7 % (9.3-17.3); White Blood Count 10.1 T/CUMM (4-12)
[2020-04-28 06:10] LABS: Calcium 6.6 MG/DL (8.5-10.1); Osmolality,Calculated 311.8 MOS/KG (273-304)
[2020-04-28] MEDS: FUROSEMIDE 40 MG TABLET PO SCH ×2 (08:00→17:42)
[2020-04-28] MEDS: buPROPion SR 100 MG TABLET PO SCH ×2 (08:00→17:40)
[2020-04-28] MEDS: INSULIN NPH 100 UNIT/ML SUBCUT SCH (08:42)
[2020-04-28] MEDS ORDERED: POTASSIUM CHLORIDE 20 MEQ TABLET PO ONE (09:47)
[2020-04-28] MEDS ORDERED: propofoL 200 MG/20 ML VIAL IV ONE (11:09)
[2020-04-28] MEDS ORDERED: fentaNYL 100 MCG/2 ML VIAL ONE (11:09)
[2020-04-28] MEDS ORDERED: MIDAZOLAM 2 MG/2 ML VIAL ONE (11:09)
[2020-04-28] MEDS ORDERED: LIDOCAINE 2% 5 ML VIAL ONE (11:09)
[2020-04-28] MEDS ORDERED: ONDANSETRON 4 MG/2 ML VIAL ONE (11:13)
[2020-04-28] MEDS ORDERED: DEXTROSE 50% 25 GM/50 ML VIAL IV ONE (11:17)
[2020-04-28] MEDS ORDERED: ETOMIDATE 40 MG/20 ML VIAL IV ONE (11:36)
[2020-04-28] MEDS ORDERED: SUCCINYLCHOLINE 200 MG/10 ML VIAL ONE (11:36)
[2020-04-28] MEDS ORDERED: ceFAZolin 1,000 MG VIAL ONE (12:03)
[2020-04-28] MEDS ORDERED: DEXTROSE 50% 25 GM/50 ML VIAL IV PRN (12:30)
[2020-04-28] MEDS ORDERED: GLUCAGON 1 MG VIAL IM PRN (12:30)
[2020-04-28] MEDS: FERROUS SULFATE 325 MG TABLET PO SCH (17:39)
[2020-04-28] MEDS: ARIPiprazole 10 MG TABLET PO SCH (17:39)
[2020-04-28] MEDS: metOLazone 2.5 MG TABLET PO SCH (17:40)
[2020-04-28] MEDS: POTASSIUM CHLORIDE 20 MEQ TABLET PO SCH (17:44)
[2020-04-28] MEDS: LATANOPROST 0.005% OPH SOLN 2.5 ML BOTTLE BOTH EYES SCH (20:34)
[2020-04-29] MEDS: INSULIN REGULAR 100 UNIT/ML SUBCUT SCH ×6 (02:36→21:08)
[2020-04-29] MEDS: ceFAZolin 1,000 MG in SYRINGE 1 EACH IV SCH ×3 (03:59→21:01)
[2020-04-29] MEDS: FUROSEMIDE 40 MG TABLET PO SCH ×2 (08:23→15:56)
[2020-04-29] MEDS: metOLazone 2.5 MG TABLET PO SCH (08:23)
[2020-04-29] MEDS: POTASSIUM CHLORIDE 20 MEQ TABLET PO SCH (08:23)
[2020-04-29] MEDS: buPROPion SR 100 MG TABLET PO SCH ×2 (08:23→15:56)
[2020-04-29] MEDS: ARIPiprazole 10 MG TABLET PO SCH (08:23)
[2020-04-29] MEDS: FERROUS SULFATE 325 MG TABLET PO SCH (08:23)
[2020-04-29] MEDS: ASPIRIN EC 81 MG TABLET PO SCH (09:25)
[2020-04-29] MEDS: INSULIN NPH 100 UNIT/ML SUBCUT SCH (17:05)
[2020-04-29] MEDS: SODIUM CHLORIDE 0.9% 1,000 ML IV SCH (18:33)
[2020-04-29] MEDS: MAGNESIUM HYDROXIDE SUSP 30 ML UDCUP PO PRN (18:34)
[2020-04-29] MEDS: carvediloL 6.25 MG TABLET PO SCH (21:08)
[2020-04-29] MEDS: LATANOPROST 0.005% OPH SOLN 2.5 ML BOTTLE BOTH EYES SCH (22:00)
[2020-04-29] MEDS ORDERED: ceFAZolin 1,000 MG in SYRINGE 1 EACH IV ONE (22:30)
[2020-04-30] MEDS: SODIUM CHLORIDE 0.9% 1,000 ML IV SCH ×2 (02:08→22:42)
[2020-04-30] MEDS: MAGNESIUM HYDROXIDE SUSP 30 ML UDCUP PO PRN (05:36)
[2020-04-30 06:07] LABS: Basophils % 0.1 % (0.0-0.8); Eosinophils % 0.2 % (0.00-10.9); Hematocrit 24.4 VOL% (35.7-47.0); Hemoglobin 7.7 GM/DL (12.0-16.0); Immature Granulocytes % 0.8 %; Immature Granulocytes Absolute 0.08 #; Lymphocytes # 0.6 10*3/uL (1.4-4.0); Lymphocytes % 6.1 % (21.3-54.2); Mean Corpuscular HGB Conc 31.6 GM/DL (32-36); Mean Corpuscular Volume 83.6 FL (87-102); Mean Platelet Volume 9.8 FL (9.6-12.0); Monocytes % 11.6 % (1.7-12.7); NRBC # 0.02 10*3/uL; Neutrophils % 81.2 % (38.7-73.9); Platelet Count 291 T/CUMM (130-400); Red Blood Count 2.92 MC/CUMM (3.8-5.5); Red Cell Distribution Width 16.5 % (9.3-17.3); White Blood Count 9.6 T/CUMM (4-12)
[2020-04-30 07:26] LABS: Calcium 7.3 MG/DL (8.5-10.1)
[2020-04-30] MEDS: POTASSIUM CHLORIDE 20 MEQ TABLET PO SCH (08:47)
[2020-04-30] MEDS: ARIPiprazole 10 MG TABLET PO SCH (08:48)
[2020-04-30] MEDS: buPROPion SR 100 MG TABLET PO SCH ×2 (08:48→15:46)
[2020-04-30] MEDS: FERROUS SULFATE 325 MG TABLET PO SCH (08:48)
[2020-04-30] MEDS: ASPIRIN EC 81 MG TABLET PO SCH (08:48)
[2020-04-30] MEDS: FUROSEMIDE 40 MG TABLET PO SCH ×2 (08:48→15:46)
[2020-04-30] MEDS: carvediloL 6.25 MG TABLET PO SCH (08:48)
[2020-04-30] MEDS: INSULIN REGULAR 100 UNIT/ML SUBCUT SCH ×4 (08:49→22:35)
[2020-04-30] MEDS: INSULIN NPH 100 UNIT/ML SUBCUT SCH ×2 (08:49→16:11)
[2020-04-30] MEDS: cephALEXin 500 MG CAPSULE PO SCH ×2 (08:49→17:34)
[2020-04-30] MEDS: metOLazone 2.5 MG TABLET PO SCH (08:50)
[2020-04-30 09:57] LABS: Osmolality,Calculated 317.1 MOS/KG (273-304)
[2020-04-30] MEDS ORDERED: SODIUM CHLORIDE 0.9% 1,000 ML IV PRN (13:25)
[2020-04-30] MEDS: carvediloL 25 MG TABLET PO SCH ×2 (16:39→21:30)
[2020-04-30 21:49] LABS: Hematocrit 28.3 VOL% (35.7-47.0); Hemoglobin 8.8 GM/DL (12.0-16.0)
[2020-04-30] MEDS: LATANOPROST 0.005% OPH SOLN 2.5 ML BOTTLE BOTH EYES SCH (22:37)
[2020-05-01] MEDS: cephALEXin 500 MG CAPSULE PO SCH ×3 (00:55→17:16)
[2020-05-01 05:41] LABS: Basophils % 0.1 % (0.0-0.8); Eosinophils % 0.3 % (0.00-10.9); Hematocrit 28.6 VOL% (35.7-47.0); Immature Granulocytes % 0.6 %; Immature Granulocytes Absolute 0.06 #; Lymphocytes # 0.6 10*3/uL (1.4-4.0); Lymphocytes % 6.4 % (21.3-54.2); Mean Corpuscular HGB Conc 31.5 GM/DL (32-36); Mean Corpuscular Volume 82.7 FL (87-102); Mean Platelet Volume 9.5 FL (9.6-12.0); Monocytes % 10.6 % (1.7-12.7); Platelet Count 308 T/CUMM (130-400); Red Blood Count 3.46 MC/CUMM (3.8-5.5); Red Cell Distribution Width 16.4 % (9.3-17.3); White Blood Count 9.8 T/CUMM (4-12)
[2020-05-01 05:53] LABS: Calcium 7.5 MG/DL (8.5-10.1); Osmolality,Calculated 317.1 MOS/KG (273-304)
[2020-05-01 05:57] LABS: Risk Ratio 3.21; VLDL CHOLESTEROL 17.6 MG/DL
[2020-05-01] MEDS: hydrALAZINE 20 MG/1 ML VIAL IV PRN (08:57)
[2020-05-01] MEDS: INSULIN NPH 100 UNIT/ML SUBCUT SCH ×2 (09:01→16:44)
[2020-05-01] MEDS: INSULIN REGULAR 100 UNIT/ML SUBCUT SCH ×4 (09:02→20:18)
[2020-05-01] MEDS: FUROSEMIDE 40 MG TABLET PO SCH ×2 (09:04→16:39)
[2020-05-01] MEDS: ARIPiprazole 10 MG TABLET PO SCH (09:05)
[2020-05-01] MEDS: carvediloL 25 MG TABLET PO SCH ×2 (09:05→20:18)
[2020-05-01] MEDS: ASPIRIN EC 81 MG TABLET PO SCH (09:05)
[2020-05-01] MEDS: buPROPion SR 100 MG TABLET PO SCH ×2 (09:05→14:52)
[2020-05-01] MEDS: FERROUS SULFATE 325 MG TABLET PO SCH (09:05)
[2020-05-01] MEDS: metOLazone 2.5 MG TABLET PO SCH (09:06)
[2020-05-01] MEDS: POTASSIUM CHLORIDE 20 MEQ TABLET PO SCH (09:06)
[2020-05-01] MEDS: hydrALAZINE 25 MG TABLET PO SCH ×2 (14:52→20:18)
[2020-05-02] MEDS: cephALEXin 500 MG CAPSULE PO SCH ×3 (00:33→16:44)
[2020-05-02] MEDS: LATANOPROST 0.005% OPH SOLN 2.5 ML BOTTLE BOTH EYES SCH ×2 (00:34→21:00)
[2020-05-02 06:33] LABS: Basophils % 0.3 % (0.0-0.8); Eosinophils % 0.4 % (0.00-10.9); Hematocrit 32.1 VOL% (35.7-47.0); Hemoglobin 10.1 GM/DL (12.0-16.0); Immature Granulocytes % 0.4 %; Immature Granulocytes Absolute 0.03 #; Lymphocytes # 0.6 10*3/uL (1.4-4.0); Lymphocytes % 7.7 % (21.3-54.2); Mean Corpuscular HGB Conc 31.5 GM/DL (32-36); Mean Corpuscular Volume 83.8 FL (87-102); Mean Platelet Volume 9.8 FL (9.6-12.0); Monocytes % 10.8 % (1.7-12.7); Neutrophils % 80.4 % (38.7-73.9); Platelet Count 338 T/CUMM (130-400); Red Blood Count 3.83 MC/CUMM (3.8-5.5); Red Cell Distribution Width 16.1 % (9.3-17.3); White Blood Count 7.7 T/CUMM (4-12)
[2020-05-02 06:53] LABS: Calcium 7.8 MG/DL (8.5-10.1)
[2020-05-02] MEDS: FUROSEMIDE 40 MG TABLET PO SCH ×2 (08:54→16:34)
[2020-05-02] MEDS: buPROPion SR 100 MG TABLET PO SCH ×2 (08:54→14:50)
[2020-05-02] MEDS: carvediloL 25 MG TABLET PO SCH ×2 (08:55→21:01)
[2020-05-02] MEDS: hydrALAZINE 25 MG TABLET PO SCH ×3 (08:55→21:01)
[2020-05-02] MEDS: POTASSIUM CHLORIDE 20 MEQ TABLET PO SCH (08:55)
[2020-05-02] MEDS: metOLazone 2.5 MG TABLET PO SCH (08:55)
[2020-05-02] MEDS: FERROUS SULFATE 325 MG TABLET PO SCH (08:55)
[2020-05-02] MEDS: INSULIN NPH 100 UNIT/ML SUBCUT SCH ×2 (08:56→16:35)
[2020-05-02] MEDS: INSULIN REGULAR 100 UNIT/ML SUBCUT SCH ×4 (08:57→21:01)
[2020-05-02] MEDS: ARIPiprazole 10 MG TABLET PO SCH (09:10)
[2020-05-02] MEDS: ASPIRIN EC 81 MG TABLET PO SCH (09:11)
[2020-05-02] MEDS: MAGNESIUM HYDROXIDE SUSP 30 ML UDCUP PO PRN ×2 (14:52→21:00)
[2020-05-02] MEDS: hydrALAZINE 20 MG/1 ML VIAL IV PRN (17:25)
[2020-05-03] MEDS: cephALEXin 500 MG CAPSULE PO SCH ×3 (00:51→17:21)
[2020-05-03] MEDS: INSULIN NPH 100 UNIT/ML SUBCUT SCH ×2 (07:47→17:20)
[2020-05-03] MEDS: INSULIN REGULAR 100 UNIT/ML SUBCUT SCH ×4 (07:47→22:14)
[2020-05-03] MEDS: FUROSEMIDE 40 MG TABLET PO SCH ×2 (09:21→15:44)
[2020-05-03] MEDS: buPROPion SR 100 MG TABLET PO SCH ×2 (09:21→15:17)
[2020-05-03] MEDS: POTASSIUM CHLORIDE 20 MEQ TABLET PO SCH (09:22)
[2020-05-03] MEDS: FERROUS SULFATE 325 MG TABLET PO SCH (09:22)
[2020-05-03] MEDS: ASPIRIN EC 81 MG TABLET PO SCH (09:22)
[2020-05-03] MEDS: hydrALAZINE 25 MG TABLET PO SCH (09:22)
[2020-05-03] MEDS: carvediloL 25 MG TABLET PO SCH ×2 (09:22→20:54)
[2020-05-03] MEDS: ARIPiprazole 10 MG TABLET PO SCH (09:22)
[2020-05-03] MEDS: metOLazone 2.5 MG TABLET PO SCH (09:23)
[2020-05-03] MEDS: LATANOPROST 0.005% OPH SOLN 2.5 ML BOTTLE BOTH EYES SCH (20:55)
[2020-05-04] MEDS: cephALEXin 500 MG CAPSULE PO SCH ×3 (00:14→16:34)
[2020-05-04 06:02] LABS: Basophils % 0.3 % (0.0-0.8); Eosinophils % 0.3 % (0.00-10.9); Hematocrit 31.5 VOL% (35.7-47.0); Hemoglobin 9.7 GM/DL (12.0-16.0); Immature Granulocytes % 0.6 %; Immature Granulocytes Absolute 0.05 #; Lymphocytes # 0.6 10*3/uL (1.4-4.0); Lymphocytes % 7.2 % (21.3-54.2); Mean Corpuscular HGB Conc 30.8 GM/DL (32-36); Mean Platelet Volume 10.7 FL (9.6-12.0); Monocytes % 8.6 % (1.7-12.7); Platelet Count 427 T/CUMM (130-400); Red Blood Count 3.75 MC/CUMM (3.8-5.5); Red Cell Distribution Width 16.5 % (9.3-17.3); White Blood Count 7.8 T/CUMM (4-12)
[2020-05-04 06:17] LABS: Alanine Aminotransferase < 6 U/L (13-56); Albumin 1.5 G/DL (3.4-5.0); Alkaline Phosphatase 148 U/L (45-117); Aspartate Amino Transferase 15 U/L (0-37); Bilirubin,Total < 0.39 MG/DL (0.2-1.0); Blood Urea Nitrogen 107 MG/DL (7-18); Calcium 7.9 MG/DL (8.5-10.1); Estimated Glom Filtration Rate 8 ML/MIN; Glucose 166 MG/DL (74-106); Osmolality,Calculated 314.5 MOS/KG (273-304); Total Protein 6.6 G/DL (6.4-8.3)
[2020-05-04] MEDS: INSULIN REGULAR 100 UNIT/ML SUBCUT SCH ×4 (09:11→20:49)
[2020-05-04] MEDS: INSULIN NPH 100 UNIT/ML SUBCUT SCH ×2 (09:11→16:33)
[2020-05-04] MEDS: ASPIRIN EC 81 MG TABLET PO SCH (09:12)
[2020-05-04] MEDS: FUROSEMIDE 40 MG TABLET PO SCH ×2 (09:12→16:32)
[2020-05-04] MEDS: ARIPiprazole 10 MG TABLET PO SCH (09:12)
[2020-05-04] MEDS: POTASSIUM CHLORIDE 20 MEQ TABLET PO SCH (09:12)
[2020-05-04] MEDS: FERROUS SULFATE 325 MG TABLET PO SCH (09:12)
[2020-05-04] MEDS: metOLazone 2.5 MG TABLET PO SCH (09:12)
[2020-05-04] MEDS: buPROPion SR 100 MG TABLET PO SCH ×2 (09:12→16:32)
[2020-05-04] MEDS: carvediloL 25 MG TABLET PO SCH ×2 (09:12→20:49)
[2020-05-04] MEDS: LATANOPROST 0.005% OPH SOLN 2.5 ML BOTTLE BOTH EYES SCH (20:49)
[2020-05-05] MEDS: cephALEXin 500 MG CAPSULE PO SCH (00:24)
[2020-05-05] MEDS: FERROUS SULFATE 325 MG TABLET PO SCH (09:44)
[2020-05-05] MEDS: POTASSIUM CHLORIDE 20 MEQ TABLET PO SCH (09:44)
[2020-05-05] MEDS: metOLazone 2.5 MG TABLET PO SCH (09:44)
[2020-05-05] MEDS: ASPIRIN EC 81 MG TABLET PO SCH (09:44)
[2020-05-05] MEDS: FUROSEMIDE 40 MG TABLET PO SCH ×2 (09:45→16:00)
[2020-05-05] MEDS: ARIPiprazole 10 MG TABLET PO SCH (09:45)
[2020-05-05] MEDS: buPROPion SR 100 MG TABLET PO SCH ×2 (09:45→15:58)
[2020-05-05] MEDS: INSULIN REGULAR 100 UNIT/ML SUBCUT SCH ×4 (09:45→20:56)
[2020-05-05] MEDS: carvediloL 25 MG TABLET PO SCH ×2 (09:45→20:57)
[2020-05-05] MEDS: INSULIN NPH 100 UNIT/ML SUBCUT SCH ×2 (09:47→17:27)
[2020-05-05] MEDS: LATANOPROST 0.005% OPH SOLN 2.5 ML BOTTLE BOTH EYES SCH (20:57)
[2020-05-06] MEDS: POTASSIUM CHLORIDE 20 MEQ TABLET PO SCH (08:59)
[2020-05-06] MEDS: INSULIN NPH 100 UNIT/ML SUBCUT SCH ×2 (08:59→16:35)
[2020-05-06] MEDS: FERROUS SULFATE 325 MG TABLET PO SCH (08:59)
[2020-05-06] MEDS: ARIPiprazole 10 MG TABLET PO SCH (09:00)
[2020-05-06] MEDS: buPROPion SR 100 MG TABLET PO SCH ×2 (09:00→15:31)
[2020-05-06] MEDS: ASPIRIN EC 81 MG TABLET PO SCH (09:00)
[2020-05-06] MEDS: metOLazone 2.5 MG TABLET PO SCH (09:00)
[2020-05-06] MEDS: FUROSEMIDE 40 MG TABLET PO SCH ×2 (09:00→15:31)
[2020-05-06] MEDS: carvediloL 25 MG TABLET PO SCH ×2 (09:00→21:49)
[2020-05-06] MEDS: INSULIN REGULAR 100 UNIT/ML SUBCUT SCH ×4 (10:42→21:50)
[2020-05-06] MEDS: LATANOPROST 0.005% OPH SOLN 2.5 ML BOTTLE BOTH EYES SCH (21:52)
[2020-05-07] MEDS: carvediloL 25 MG TABLET PO SCH ×2 (08:18→20:57)
[2020-05-07] MEDS: INSULIN NPH 100 UNIT/ML SUBCUT SCH ×2 (08:18→16:43)
[2020-05-07] MEDS: INSULIN REGULAR 100 UNIT/ML SUBCUT SCH ×4 (08:18→20:57)
[2020-05-07] MEDS: ARIPiprazole 10 MG TABLET PO SCH (08:18)
[2020-05-07] MEDS: POTASSIUM CHLORIDE 20 MEQ TABLET PO SCH (08:18)
[2020-05-07] MEDS: FUROSEMIDE 40 MG TABLET PO SCH ×2 (08:19→15:47)
[2020-05-07] MEDS: ASPIRIN EC 81 MG TABLET PO SCH (08:19)
[2020-05-07] MEDS: FERROUS SULFATE 325 MG TABLET PO SCH (08:19)
[2020-05-07] MEDS: metOLazone 2.5 MG TABLET PO SCH (08:19)
[2020-05-07] MEDS: buPROPion SR 100 MG TABLET PO SCH ×2 (08:19→15:47)
[2020-05-07] MEDS: LATANOPROST 0.005% OPH SOLN 2.5 ML BOTTLE BOTH EYES SCH (20:57)
[2020-05-08] MEDS: INSULIN NPH 100 UNIT/ML SUBCUT SCH ×2 (07:46→16:31)
[2020-05-08] MEDS: INSULIN REGULAR 100 UNIT/ML SUBCUT SCH ×4 (07:46→20:30)
[2020-05-08] MEDS: FUROSEMIDE 40 MG TABLET PO SCH ×2 (07:47→15:29)
[2020-05-08] MEDS: buPROPion SR 100 MG TABLET PO SCH ×2 (07:47→15:29)
[2020-05-08] MEDS: ARIPiprazole 10 MG TABLET PO SCH (09:09)
[2020-05-08] MEDS: carvediloL 25 MG TABLET PO SCH ×2 (09:10→20:31)
[2020-05-08] MEDS: ASPIRIN EC 81 MG TABLET PO SCH (09:10)
[2020-05-08] MEDS: FERROUS SULFATE 325 MG TABLET PO SCH (09:10)
[2020-05-08] MEDS: POTASSIUM CHLORIDE 20 MEQ TABLET PO SCH (09:10)
[2020-05-08] MEDS: metOLazone 2.5 MG TABLET PO SCH (09:10)
[2020-05-08] MEDS: LATANOPROST 0.005% OPH SOLN 2.5 ML BOTTLE BOTH EYES SCH (20:31)
[2020-05-09] MEDS: metOLazone 2.5 MG TABLET PO SCH (08:01)
[2020-05-09] MEDS: INSULIN NPH 100 UNIT/ML SUBCUT SCH ×2 (08:01→16:20)
[2020-05-09] MEDS: ASPIRIN EC 81 MG TABLET PO SCH (08:01)
[2020-05-09] MEDS: ARIPiprazole 10 MG TABLET PO SCH (08:01)
[2020-05-09] MEDS: buPROPion SR 100 MG TABLET PO SCH ×2 (08:02→15:18)
[2020-05-09] MEDS: FUROSEMIDE 40 MG TABLET PO SCH ×2 (08:02→15:18)
[2020-05-09] MEDS: POTASSIUM CHLORIDE 20 MEQ TABLET PO SCH (08:02)
[2020-05-09] MEDS: FERROUS SULFATE 325 MG TABLET PO SCH (08:02)
[2020-05-09] MEDS: carvediloL 25 MG TABLET PO SCH ×2 (08:03→20:48)
[2020-05-09] MEDS: INSULIN REGULAR 100 UNIT/ML SUBCUT SCH ×4 (08:05→20:49)
[2020-05-09] MEDS: LATANOPROST 0.005% OPH SOLN 2.5 ML BOTTLE BOTH EYES SCH (20:49)
[2020-05-10] MEDS: metOLazone 2.5 MG TABLET PO SCH (08:14)
[2020-05-10] MEDS: ASPIRIN EC 81 MG TABLET PO SCH (08:15)
[2020-05-10] MEDS: ARIPiprazole 10 MG TABLET PO SCH (08:15)
[2020-05-10] MEDS: FUROSEMIDE 40 MG TABLET PO SCH ×2 (08:15→14:59)
[2020-05-10] MEDS: buPROPion SR 100 MG TABLET PO SCH ×2 (08:15→14:58)
[2020-05-10] MEDS: POTASSIUM CHLORIDE 20 MEQ TABLET PO SCH (08:16)
[2020-05-10] MEDS: INSULIN REGULAR 100 UNIT/ML SUBCUT SCH ×4 (08:16→20:48)
[2020-05-10] MEDS: FERROUS SULFATE 325 MG TABLET PO SCH (08:16)
[2020-05-10] MEDS: carvediloL 25 MG TABLET PO SCH ×2 (08:16→20:47)
[2020-05-10] MEDS: INSULIN NPH 100 UNIT/ML SUBCUT SCH ×2 (08:18→16:01)
[2020-05-10] MEDS: LATANOPROST 0.005% OPH SOLN 2.5 ML BOTTLE BOTH EYES SCH (20:49)
[2020-05-11] MEDS: INSULIN REGULAR 100 UNIT/ML SUBCUT SCH ×2 (08:35→11:53)
[2020-05-11] MEDS: INSULIN NPH 100 UNIT/ML SUBCUT SCH (08:36)
[2020-05-11] MEDS: FUROSEMIDE 40 MG TABLET PO SCH (08:37)
[2020-05-11] MEDS: ARIPiprazole 10 MG TABLET PO SCH (08:37)
[2020-05-11] MEDS: buPROPion SR 100 MG TABLET PO SCH (08:37)
[2020-05-11] MEDS: POTASSIUM CHLORIDE 20 MEQ TABLET PO SCH (08:38)
[2020-05-11] MEDS: metOLazone 2.5 MG TABLET PO SCH (08:38)
[2020-05-11] MEDS: FERROUS SULFATE 325 MG TABLET PO SCH (08:38)
[2020-05-11] MEDS: ASPIRIN EC 81 MG TABLET PO SCH (08:38)
[2020-05-11] MEDS: carvediloL 25 MG TABLET PO SCH (08:38)
[2020-05-11 11:19] VITALS: BP 176/95
== END 2020-05-11 12:02 | disposition swing bed (61) | DRG 313 ==
LOC: EDBD → EDUNIT# → N.ED 18:13 → N.EDINP 20:21 → SUATTDRO 20:25 → N.EDINP 20:25 → N.ICU 23:28 → N.3E 04-27 13:27
PROVIDERS: ADMIT Orthopaedic Surgery; ATTEND Orthopaedic Surgery

== ENCOUNTER 2020-06-19 05:08 | Inpatient (IN) ==
[2020-06-19 07:07] LABS: Basophils % 0.1 % (0.0-0.8); Hematocrit 19.8 VOL% (35.7-47.0); Immature Granulocytes % 0.5 %; Immature Granulocytes Absolute 0.07 #; Lymphocytes # 0.6 10*3/uL (1.4-4.0); Lymphocytes % 4.2 % (21.3-54.2); Mean Corpuscular HGB Conc 31.3 GM/DL (32-36); Mean Corpuscular Volume 81.1 FL (87-102); Mean Platelet Volume 9.7 FL (9.6-12.0); NRBC # 0.08 10*3/uL; Neutrophils % 90.2 % (38.7-73.9); Platelet Count 337 T/CUMM (130-400); Red Blood Count 2.44 MC/CUMM (3.8-5.5); Red Cell Distribution Width 16.9 % (9.3-17.3); White Blood Count 15.1 T/CUMM (4-12)
[2020-06-19 07:30] LABS: Hemoglobin 6.2 GM/DL (12.0-16.0)
[2020-06-19 07:56] LABS: Albumin 1.9 G/DL (3.4-5.0); Bilirubin,Total 0.4 MG/DL (0.2-1.0); Calcium 7.7 MG/DL (8.5-10.1); Osmolality,Calculated 327.3 MOS/KG (273-304); Potassium 4.1 MMOL/L (3.5-5.1); Total Protein 6.4 G/DL (6.4-8.3)
[2020-06-19 08:57] LABS: Hypochromasia 2+; Lymphocytes 3 % (20-55); Segmented Neutrophils 95 % (50-85); Total Cells Counted 100
[2020-06-19 08:58] LABS: Microcytosis 1+; Ovalocytes Slight; Platelet Estimate Normal; Polychromasia Slight
[2020-06-19 08:59] LABS: Target Cells Slight
[2020-06-19] MEDS ORDERED: GLUCAGON 1 MG VIAL IM PRN (09:27)
[2020-06-19] MEDS ORDERED: DOCUSATE SODIUM 100 MG CAPSULE PO PRN (09:27)
[2020-06-19] MEDS ORDERED: SODIUM CHLORIDE 0.9% 1,000 ML IV PRN (09:39)
[2020-06-19 10:10] LABS: % Iron Saturation 33.6 % (18-50); Ferritin 298.8 ng/ml (8-252)
[2020-06-19 10:34] LABS: Folate 6.8 NG/ML (5.4-24.0); Vitamin B12 > 2000 PG/ML (211-911)
[2020-06-19] MEDS: SODIUM CHLORIDE 0.9% 1,000 ML IV SCH (11:28)
[2020-06-19] MEDS ORDERED: SODIUM CHLORIDE 0.9% 500 ML IV ONE (14:43)
[2020-06-19] MEDS: INSULIN REGULAR 100 UNIT/ML SUBCUT SCH ×3 (14:44→21:00)
[2020-06-19] MEDS ORDERED: SODIUM BICARBONATE 50 MEQ/50 ML VIAL IV ONE (18:20)
[2020-06-19] MEDS ORDERED: NOREPINEPHRINE 8 MG in SODIUM CHLORIDE 0.9% 242 ML IV PRN (18:20)
[2020-06-19] MEDS ORDERED: PHENYLEPHRINE DRIP 40 MG/250 ML PREMIX IV PRN (18:20)
[2020-06-19 18:45] LABS: ABG Base Excess -5.4 MMOL/L (-2.5-2.5); ABG HCO3 19.8 MMOL/L (20-26); ABG Oxygen Saturation 85.4 % (95-100); ABG PCO2 41.1 MM HG (35-48); ABG PH 7.306 (7.35-7.45); ABG TCO2 19.6 MMOL/L (23-27)
[2020-06-19] MEDS ORDERED: DOPamine 800 MG/250 ML PREMIX IV PRN (18:49)
[2020-06-19] MEDS: SODIUM BICARB INJ 150 MEQ in DEXTROSE 5% 850 ML IV SCH (19:30)
[2020-06-19] MEDS: ACETAMINOPHEN 325 MG TABLET PO PRN (19:39)
[2020-06-19 20:56] LABS: Basophils % 0.1 % (0.0-0.8); Hematocrit 26.9 VOL% (35.7-47.0); Immature Granulocytes % 0.7 %; Immature Granulocytes Absolute 0.11 #; Lymphocytes # 0.6 10*3/uL (1.4-4.0); Lymphocytes % 3.9 % (21.3-54.2); Mean Corpuscular HGB Conc 31.6 GM/DL (32-36); Mean Corpuscular Volume 81.8 FL (87-102); Mean Platelet Volume 9.6 FL (9.6-12.0); Monocytes % 5.1 % (1.7-12.7); NRBC # 0.21 10*3/uL; Neutrophils % 90.2 % (38.7-73.9); Platelet Count 346 T/CUMM (130-400); Red Blood Count 3.29 MC/CUMM (3.8-5.5); Red Cell Distribution Width 17.4 % (9.3-17.3); White Blood Count 15.8 T/CUMM (4-12)
[2020-06-19 20:59] LABS: Hemoglobin 8.5 GM/DL (12.0-16.0)
[2020-06-19 21:20] LABS: Lymphocytes 4 % (20-55); Nucleated Red Blood Cells 3 (0-5); Segmented Neutrophils 94 % (50-85); Total Cells Counted 100
[2020-06-19 21:21] LABS: Anisocytosis 1+; Ovalocytes 1+
[2020-06-19 21:22] LABS: Burr Cells Few
[2020-06-19 21:23] LABS: Schistocytes Few
[2020-06-19 21:24] LABS: Hypochromasia 1+; Platelet Estimate Adequate; Target Cells Few
[2020-06-19 21:31] LABS: Albumin 2.1 G/DL (3.4-5.0); Bilirubin,Total 0.6 MG/DL (0.2-1.0); Calcium 7.2 MG/DL (8.5-10.1); Osmolality,Calculated 329.3 MOS/KG (273-304); Potassium 5.1 MMOL/L (3.5-5.1); Total Protein 7.3 G/DL (6.4-8.3)
[2020-06-19] MEDS: ONDANSETRON 4 MG/2 ML VIAL IV PRN (22:05)
[2020-06-19] MEDS ORDERED: MORPHINE 4 MG/1 ML VIAL IV ONE (22:28)
[2020-06-19 22:57] LABS: CKMB % 5.4 %
[2020-06-19 22:58] LABS: Troponin I 0.339 NG/ML (0.00-0.045)
[2020-06-20] MEDS: SODIUM CHLORIDE 0.9% 1,000 ML IV SCH ×3 (02:25→11:07)
[2020-06-20 02:40] LABS: Basophils % 0.1 % (0.0-0.8); Hematocrit 26.6 VOL% (35.7-47.0); Hemoglobin 8.3 GM/DL (12.0-16.0); Immature Granulocytes % 0.6 %; Immature Granulocytes Absolute 0.09 #; Lymphocytes # 0.5 10*3/uL (1.4-4.0); Mean Corpuscular HGB Conc 31.2 GM/DL (32-36); Mean Corpuscular Volume 82.9 FL (87-102); Mean Platelet Volume 10.3 FL (9.6-12.0); NRBC # 0.12 10*3/uL; Neutrophils % 90.3 % (38.7-73.9); Platelet Count 343 T/CUMM (130-400); Red Blood Count 3.21 MC/CUMM (3.8-5.5); Red Cell Distribution Width 17.8 % (9.3-17.3); White Blood Count 14.8 T/CUMM (4-12)
[2020-06-20 02:41] LABS: Bilirubin,Total 0.4 MG/DL (0.2-1.0); Calcium 6.9 MG/DL (8.5-10.1); Total Protein 7.4 G/DL (6.4-8.3)
[2020-06-20 03:11] LABS: Potassium 6.4 MMOL/L (3.5-5.1)
[2020-06-20] MEDS ORDERED: INSULIN REGULAR 10 UNIT, CALCIUM GLUCONATE 1,000 MG in DEXTROSE 10% 250 ML IV ONE (04:00)
[2020-06-20 04:03] LABS: ABG Base Excess -12.7 MMOL/L (-2.5-2.5); ABG HCO3 14.5 MMOL/L (20-26); ABG Oxygen Saturation 93.9 % (95-100); ABG PCO2 38.3 MM HG (35-48); ABG TCO2 13.9 MMOL/L (23-27); Allen Test Positive
[2020-06-20 04:26] LABS: ABG PH 7.197 (7.35-7.45)
[2020-06-20] MEDS ORDERED: SODIUM BICARBONATE 50 MEQ/50 ML VIAL IV ONE (04:56)
[2020-06-20 06:11] LABS: Calcium 6.9 MG/DL (8.5-10.1); Osmolality,Calculated 333.3 MOS/KG (273-304); Potassium 4.1 MMOL/L (3.5-5.1)
[2020-06-20] MEDS ORDERED: SODIUM PHOSPHATE IV PRN (06:23)
[2020-06-20] MEDS ORDERED: MAGNESIUM SULF RIDER 2 GM in PREMIX 1 EACH IV PRN (06:23)
[2020-06-20] MEDS ORDERED: SODIUM CHLORIDE 0.9% IV PRN (06:23)
[2020-06-20] MEDS ORDERED: SODIUM CHLORIDE 0.9% 1,000 ML IV ONE (06:23)
[2020-06-20] MEDS ORDERED: SODIUM BICARB INJ 100 MEQ in STERILE WATER INJ 400 ML IV PRN (06:23)
[2020-06-20] MEDS ORDERED: MAGNESIUM SULF RIDER 4 GM in PREMIX 1 EACH IV PRN (06:23)
[2020-06-20] MEDS: SODIUM BICARB INJ 150 MEQ in DEXTROSE 5% 850 ML IV SCH ×2 (06:58→15:32)
[2020-06-20 07:04] LABS: Bacteria,Urine Occasional /HPF (Few); Bilirubin,Urine Negative (Negative); Blood, Urine Small mg/dL (Negative); Glucose,Urine (UA) 50 mg/dL (Negative); Ketones,Urine Negative (Negative); Nitrite,Urine Negative (Negative); Protein,Urine 100 MG/DL; RBC,Urine 1 /HPF (0-4); Squamous Epithelial Cell,Urine Few /HPF (0-10); Urine Appearance CLOUDY (Clear); Urine Color Yellow (Yellow); Urine Specific Gravity 1.013 (1.001-1.035); Urine Urobilinogen < 2.0 EU/DL (0.2-1.0); WBC,Urine <1 /HPF (0-6)
[2020-06-20 07:38] LABS: Calcium 6.8 MG/DL (8.5-10.1); Osmolality,Calculated 330.3 MOS/KG (273-304); Potassium 4.5 MMOL/L (3.5-5.1)
[2020-06-20] MEDS: DEXTROSE 5% NACL 0.9% 1,000 ML IV SCH ×4 (08:00→15:38)
[2020-06-20] MEDS: INSULIN REGULAR DRIP 100 ML IV SCH ×2 (08:13→17:36)
[2020-06-20] MEDS: INSULIN REGULAR 100 UNIT/ML SUBCUT SCH (08:33)
[2020-06-20 08:44] LABS: Hypochromasia Slight; Lymphocytes 1 % (20-55); Microcytosis 2+; Nucleated Red Blood Cells 1 (0-5); Platelet Estimate Increased; Segmented Neutrophils 98 % (50-85); Total Cells Counted 100
[2020-06-20 08:45] LABS: Target Cells Slight
[2020-06-20 09:56] LABS: ABG HCO3 17.1 MMOL/L (20-26); ABG Oxygen Saturation 97.4 % (95-100); ABG PCO2 37.9 MM HG (35-48); ABG PH 7.268 (7.35-7.45); ABG TCO2 16.5 MMOL/L (23-27)
[2020-06-20] MEDS ORDERED: SODIUM CHLORIDE 0.9% 1,000 ML IV SCH (11:24)
[2020-06-20 11:59] LABS: Calcium 6.5 MG/DL (8.5-10.1); Potassium 3.4 MMOL/L (3.5-5.1)
[2020-06-20] MEDS: PANTOPRAZOLE 40 MG TABLET PO SCH (12:28)
[2020-06-20] MEDS: POTASSIUM CHLORIDE RIDER 10 MEQ in PREMIX 1 EACH IV PRN ×4 (13:06→18:31)
[2020-06-20] MEDS: DEXTROSE 50% 25 GM/50 ML VIAL IV PRN ×2 (14:04→15:29)
[2020-06-20 15:11] LABS: Calcium 6.2 MG/DL (8.5-10.1); Osmolality,Calculated 328.1 MOS/KG (273-304); Potassium 3.6 MMOL/L (3.5-5.1)
[2020-06-20] MEDS: DEXT 5% NACL 0.45% KCL 20 MEQ 20 MEQ/1,000 ML BAG IV SCH ×3 (15:38→23:22)
[2020-06-20 18:47] LABS: Calcium 6.1 MG/DL (8.5-10.1); Osmolality,Calculated 327.1 MOS/KG (273-304)
[2020-06-20] MEDS: ACETAMINOPHEN 325 MG TABLET PO PRN (21:52)
[2020-06-20 22:33] LABS: Potassium 4.2 MMOL/L (3.5-5.1)
[2020-06-20] MEDS: SODIUM CHLORIDE 0.45% 1,000 ML IV SCH (23:24)
[2020-06-21] MEDS: SODIUM BICARB INJ 150 MEQ in DEXTROSE 5% 850 ML IV SCH (00:30)
[2020-06-21] MEDS: DEXT 5% NACL 0.45% KCL 20 MEQ 20 MEQ/1,000 ML BAG IV SCH ×2 (03:31→08:01)
[2020-06-21 05:05] LABS: Osmolality,Calculated 323.3 MOS/KG (273-304); Potassium 4.2 MMOL/L (3.5-5.1)
[2020-06-21 05:07] LABS: Calcium 5.7 MG/DL (8.5-10.1)
[2020-06-21 05:32] LABS: Basophils % 0.1 % (0.0-0.8); Eosinophils % 0.2 % (0.00-10.9); Hematocrit 24.3 VOL% (35.7-47.0); Hemoglobin 7.8 GM/DL (12.0-16.0); Immature Granulocytes % 1.1 %; Immature Granulocytes Absolute 0.16 #; Lymphocytes # 0.6 10*3/uL (1.4-4.0); Lymphocytes % 4.3 % (21.3-54.2); Mean Corpuscular HGB Conc 32.1 GM/DL (32-36); Mean Corpuscular Volume 80.2 FL (87-102); Mean Platelet Volume 9.1 FL (9.6-12.0); Monocytes % 9.7 % (1.7-12.7); NRBC # 0.25 10*3/uL; Neutrophils % 84.6 % (38.7-73.9); Platelet Count 271 T/CUMM (130-400); Red Blood Count 3.03 MC/CUMM (3.8-5.5); Red Cell Distribution Width 17.8 % (9.3-17.3); White Blood Count 14.8 T/CUMM (4-12)
[2020-06-21] MEDS ORDERED: CALCIUM GLUCONATE 1,000 MG in SODIUM CHLORIDE 0.9% 100 ML IV ONE ×2 (06:00→14:20)
[2020-06-21 07:41] LABS: Band Neutrophils 1 % (0-10); Lymphocytes 13 % (20-55); Nucleated Red Blood Cells 3 (0-5); Segmented Neutrophils 85 % (50-85); Total Cells Counted 100
[2020-06-21 07:45] LABS: Hypochromasia 1+; Microcytosis Slight; Ovalocytes Slight; Schistocytes Few
[2020-06-21 07:46] LABS: Platelet Estimate Adequate
[2020-06-21] MEDS: SODIUM CHLORIDE 0.45% 1,000 ML IV SCH ×3 (07:59→23:36)
[2020-06-21] MEDS: INSULIN REGULAR DRIP 100 ML IV SCH (08:01)
[2020-06-21] MEDS: carvediloL 25 MG TABLET PO SCH ×2 (09:02→21:38)
[2020-06-21] MEDS: INSULIN REGULAR 100 UNIT/ML SUBCUT SCH ×8 (09:02→23:11)
[2020-06-21] MEDS: INSULIN GLARGINE 100 UNIT/ML SUBCUT SCH ×2 (09:03→21:38)
[2020-06-21] MEDS: PANTOPRAZOLE 40 MG TABLET PO SCH (09:03)
[2020-06-21 10:55] LABS: Calcium 5.9 MG/DL (8.5-10.1); Osmolality,Calculated 318.5 MOS/KG (273-304); Potassium 4.5 MMOL/L (3.5-5.1)
[2020-06-21 14:03] LABS: Osmolality,Calculated 317.7 MOS/KG (273-304); Potassium 4.5 MMOL/L (3.5-5.1)
[2020-06-21 14:18] LABS: Calcium 5.6 MG/DL (8.5-10.1)
[2020-06-22 05:15] LABS: Basophils % 0.1 % (0.0-0.8); Eosinophils % 0.1 % (0.00-10.9); Hematocrit 24.4 VOL% (35.7-47.0); Hemoglobin 7.7 GM/DL (12.0-16.0); Immature Granulocytes % 1.5 %; Immature Granulocytes Absolute 0.26 #; Lymphocytes # 0.9 10*3/uL (1.4-4.0); Mean Corpuscular HGB Conc 31.6 GM/DL (32-36); Mean Corpuscular Volume 80.8 FL (87-102); Mean Platelet Volume 9.4 FL (9.6-12.0); Monocytes % 6.9 % (1.7-12.7); NRBC # 0.22 10*3/uL; Neutrophils % 86.4 % (38.7-73.9); Platelet Count 256 T/CUMM (130-400); Red Blood Count 3.02 MC/CUMM (3.8-5.5); Red Cell Distribution Width 18.1 % (9.3-17.3); White Blood Count 16.9 T/CUMM (4-12)
[2020-06-22 05:24] LABS: Alanine Aminotransferase 25 U/L (13-56); Albumin 1.8 G/DL (3.4-5.0); Alkaline Phosphatase 165 U/L (45-117); Aspartate Amino Transferase 38 U/L (0-37); Bilirubin,Total < 0.39 MG/DL (0.2-1.0); Blood Urea Nitrogen 132 MG/DL (7-18); Carbon Dioxide 20 MMOL/L (21-32); Estimated Glom Filtration Rate 8 ML/MIN; Glucose 65 MG/DL (74-106); Osmolality,Calculated 319.4 MOS/KG (273-304); Potassium 4.6 MMOL/L (3.5-5.1); Sodium 140 MMOL/L (136-145); Total Protein 6.6 G/DL (6.4-8.3)
[2020-06-22] MEDS: INSULIN REGULAR 100 UNIT/ML SUBCUT SCH ×3 (05:59→21:56)
[2020-06-22] MEDS: LATANOPROST 0.005% OPH SOLN 2.5 ML BOTTLE BOTH EYES SCH ×2 (06:17→21:30)
[2020-06-22] MEDS: ARIPiprazole 10 MG TABLET PO SCH ×2 (06:17→10:17)
[2020-06-22] MEDS: buPROPion SR 100 MG TABLET PO SCH ×3 (06:17→16:25)
[2020-06-22] MEDS: PANTOPRAZOLE 40 MG TABLET PO SCH (10:17)
[2020-06-22] MEDS: FERROUS SULFATE 325 MG TABLET PO SCH (10:17)
[2020-06-22] MEDS: carvediloL 25 MG TABLET PO SCH ×2 (10:17→21:30)
[2020-06-22] MEDS: INSULIN GLARGINE 100 UNIT/ML SUBCUT SCH (11:54)
[2020-06-22] MEDS: INSULIN LISPRO 100 UNIT/ML SUBCUT SCH ×2 (16:23→18:24)
[2020-06-22] MEDS: ZINC OXIDE PASTE 113 GM TUBE TOP SCH ×2 (16:25→21:30)
[2020-06-22] MEDS: SODIUM CHLORIDE 0.45% 1,000 ML IV SCH ×2 (16:25→21:53)
[2020-06-23] MEDS: INSULIN LISPRO 100 UNIT/ML SUBCUT SCH ×4 (00:05→18:49)
[2020-06-23 04:58] LABS: Basophils % 0.2 % (0.0-0.8); Eosinophils # 0.1 10*3/uL (0.0-0.87); Eosinophils % 0.3 % (0.00-10.9); Hematocrit 22.8 VOL% (35.7-47.0); Hemoglobin 7.3 GM/DL (12.0-16.0); Immature Granulocytes % 2.5 %; Lymphocytes # 0.9 10*3/uL (1.4-4.0); Lymphocytes % 5.7 % (21.3-54.2); Mean Corpuscular Volume 81.1 FL (87-102); Mean Platelet Volume 10.5 FL (9.6-12.0); Monocytes % 6.8 % (1.7-12.7); NRBC # 0.15 10*3/uL; Neutrophils % 84.5 % (38.7-73.9); Platelet Count 225 T/CUMM (130-400); Red Blood Count 2.81 MC/CUMM (3.8-5.5); Red Cell Distribution Width 18.3 % (9.3-17.3); White Blood Count 15.7 T/CUMM (4-12)
[2020-06-23 05:15] LABS: Albumin 1.7 G/DL (3.4-5.0); Bilirubin,Total 0.4 MG/DL (0.2-1.0); Calcium 6.5 MG/DL (8.5-10.1); Potassium 4.9 MMOL/L (3.5-5.1); Total Protein 6.5 G/DL (6.4-8.3)
[2020-06-23] MEDS: buPROPion SR 100 MG TABLET PO SCH ×2 (09:07→16:13)
[2020-06-23] MEDS: PANTOPRAZOLE 40 MG TABLET PO SCH (09:07)
[2020-06-23] MEDS: ARIPiprazole 10 MG TABLET PO SCH (09:07)
[2020-06-23] MEDS: FERROUS SULFATE 325 MG TABLET PO SCH (09:07)
[2020-06-23] MEDS: carvediloL 25 MG TABLET PO SCH ×2 (10:47→20:39)
[2020-06-23] MEDS: SODIUM CHLORIDE 0.45% 1,000 ML IV SCH (10:47)
[2020-06-23] MEDS: ZINC OXIDE PASTE 113 GM TUBE TOP SCH ×2 (10:47→20:39)
[2020-06-23] MEDS ORDERED: ceFAZolin 1,000 MG in SYRINGE 1 EACH IV ONE (10:55)
[2020-06-23 14:58] LABS: Hepatitis B Core IgM Quant 0.14 Index; Hepatitis B Surface Ag Quant 0.24 Index; Hepatitis B Surface Ag Result Negative (Negative); Hepatitis C Virus Ab Quant 0.13 Index; Hepatitis C Virus Ab Result Negative (Negative)
[2020-06-24] MEDS: LATANOPROST 0.005% OPH SOLN 2.5 ML BOTTLE BOTH EYES SCH (03:07)
[2020-06-24] MEDS: ONDANSETRON 4 MG/2 ML VIAL IV PRN (03:08)
[2020-06-24] MEDS: INSULIN LISPRO 100 UNIT/ML SUBCUT SCH ×4 (03:19→19:28)
[2020-06-24] MEDS ORDERED: BUPIVACAINE MPF 0.25% 30 ML VIAL ONE (08:20)
[2020-06-24] MEDS ORDERED: HEPARIN 5,000 UNIT/1 ML VIAL ONE (08:21)
[2020-06-24] MEDS ORDERED: LIDOCAINE MPF 1% /EPI 30 ML VIAL ONE (08:21)
[2020-06-24] MEDS ORDERED: MIDAZOLAM 2 MG/2 ML VIAL ONE (08:40)
[2020-06-24] MEDS: carvediloL 25 MG TABLET PO SCH ×2 (08:54→21:32)
[2020-06-24] MEDS: buPROPion SR 100 MG TABLET PO SCH ×2 (08:54→19:25)
[2020-06-24] MEDS: PANTOPRAZOLE 40 MG TABLET PO SCH (08:54)
[2020-06-24] MEDS: ARIPiprazole 10 MG TABLET PO SCH (08:54)
[2020-06-24] MEDS: FERROUS SULFATE 325 MG TABLET PO SCH (08:54)
[2020-06-24] MEDS: ZINC OXIDE PASTE 113 GM TUBE TOP SCH (08:55)
[2020-06-24 09:20] LABS: Calcium 7.3 MG/DL (8.5-10.1); Osmolality,Calculated 322.4 MOS/KG (273-304); Potassium 5.1 MMOL/L (3.5-5.1)
[2020-06-24] MEDS ORDERED: ceFAZolin 1,000 MG in SYRINGE 1 EACH IV ONE (09:30)
[2020-06-24] MEDS ORDERED: TISSUE ADHESIVE 1 EACH APPLICATOR TOP ONE (10:10)
[2020-06-24 12:34] LABS: Basophils % 0.2 % (0.0-0.8); Eosinophils # 0.1 10*3/uL (0.0-0.87); Eosinophils % 0.6 % (0.00-10.9); Hematocrit 23.2 VOL% (35.7-47.0); Hemoglobin 7.4 GM/DL (12.0-16.0); Immature Granulocytes % 2.2 %; Immature Granulocytes Absolute 0.27 #; Lymphocytes # 0.7 10*3/uL (1.4-4.0); Lymphocytes % 5.9 % (21.3-54.2); Mean Corpuscular HGB Conc 31.9 GM/DL (32-36); Mean Corpuscular Volume 81.7 FL (87-102); Mean Platelet Volume 10.5 FL (9.6-12.0); Monocytes % 5.8 % (1.7-12.7); NRBC # 0.04 10*3/uL; Neutrophils % 85.3 % (38.7-73.9); Platelet Count 263 T/CUMM (130-400); Red Blood Count 2.84 MC/CUMM (3.8-5.5); Red Cell Distribution Width 18.2 % (9.3-17.3); White Blood Count 12.4 T/CUMM (4-12)
[2020-06-24] MEDS ORDERED: EPOETIN ALFA-EPBX 10,000 UNIT/ML VIAL IV PRN (16:24)
[2020-06-24] MEDS ORDERED: HEPARIN 10,000 UNIT/10 ML VIAL IV SCH (16:45)
[2020-06-24] MEDS: ACETAMINOPHEN 325 MG TABLET PO PRN (21:32)
[2020-06-25] MEDS: INSULIN LISPRO 100 UNIT/ML SUBCUT SCH ×4 (00:34→17:04)
[2020-06-25] MEDS: ZINC OXIDE PASTE 113 GM TUBE TOP SCH ×3 (00:35→21:52)
[2020-06-25] MEDS: LATANOPROST 0.005% OPH SOLN 2.5 ML BOTTLE BOTH EYES SCH ×2 (00:35→21:52)
[2020-06-25 07:04] LABS: Basophils % 0.2 % (0.0-0.8); Eosinophils # 0.1 10*3/uL (0.0-0.87); Eosinophils % 0.7 % (0.00-10.9); Hematocrit 23.5 VOL% (35.7-47.0); Hemoglobin 7.1 GM/DL (12.0-16.0); Immature Granulocytes % 2.7 %; Immature Granulocytes Absolute 0.32 #; Lymphocytes # 0.8 10*3/uL (1.4-4.0); Lymphocytes % 6.2 % (21.3-54.2); Mean Corpuscular HGB Conc 30.2 GM/DL (32-36); Mean Corpuscular Volume 84.2 FL (87-102); Mean Platelet Volume 10.2 FL (9.6-12.0); Monocytes % 8.7 % (1.7-12.7); NRBC # 0.02 10*3/uL; Neutrophils % 81.5 % (38.7-73.9); Platelet Count 296 T/CUMM (130-400); Red Blood Count 2.79 MC/CUMM (3.8-5.5); Red Cell Distribution Width 18.2 % (9.3-17.3)
[2020-06-25 07:44] LABS: Calcium 7.6 MG/DL (8.5-10.1); Potassium 4.9 MMOL/L (3.5-5.1)
[2020-06-25] MEDS: carvediloL 25 MG TABLET PO SCH ×2 (10:55→21:51)
[2020-06-25] MEDS: ARIPiprazole 10 MG TABLET PO SCH (10:55)
[2020-06-25] MEDS: buPROPion SR 100 MG TABLET PO SCH ×2 (10:55→17:02)
[2020-06-25] MEDS: FERROUS SULFATE 325 MG TABLET PO SCH (11:17)
[2020-06-25] MEDS: ACETAMINOPHEN 325 MG TABLET PO PRN (11:18)
[2020-06-25] MEDS: PANTOPRAZOLE 40 MG TABLET PO SCH (11:18)
[2020-06-25] MEDS ORDERED: INSULIN GLARGINE 100 UNIT/ML SUBCUT SCH (21:00)
[2020-06-26] MEDS: INSULIN LISPRO 100 UNIT/ML SUBCUT SCH ×6 (00:18→17:04)
[2020-06-26 05:41] LABS: Basophils % 0.3 % (0.0-0.8); Eosinophils % 0.1 % (0.00-10.9); Hematocrit 24.1 VOL% (35.7-47.0); Immature Granulocytes % 2.8 %; Immature Granulocytes Absolute 0.38 #; Lymphocytes # 0.7 10*3/uL (1.4-4.0); Lymphocytes % 5.1 % (21.3-54.2); Monocytes % 9.4 % (1.7-12.7); NRBC # 0.02 10*3/uL; Neutrophils % 82.3 % (38.7-73.9); Platelet Count 285 T/CUMM (130-400); Red Blood Count 2.77 MC/CUMM (3.8-5.5); Red Cell Distribution Width 18.2 % (9.3-17.3); White Blood Count 13.4 T/CUMM (4-12)
[2020-06-26 06:13] LABS: Calcium 7.8 MG/DL (8.5-10.1); Osmolality,Calculated 310.8 MOS/KG (273-304); Potassium 4.6 MMOL/L (3.5-5.1)
[2020-06-26] MEDS ORDERED: SODIUM CHLORIDE 0.9% 1,000 ML IV SCH (08:00)
[2020-06-26] MEDS: ARIPiprazole 10 MG TABLET PO SCH (08:06)
[2020-06-26] MEDS: carvediloL 25 MG TABLET PO SCH ×3 (08:06→23:00)
[2020-06-26] MEDS: PANTOPRAZOLE 40 MG TABLET PO SCH (08:06)
[2020-06-26] MEDS: buPROPion SR 100 MG TABLET PO SCH ×2 (08:06→16:53)
[2020-06-26] MEDS: FERROUS SULFATE 325 MG TABLET PO SCH (08:06)
[2020-06-26] MEDS ORDERED: INSULIN GLARGINE 100 UNIT/ML SUBCUT SCH (08:26)
[2020-06-26] MEDS: ZINC OXIDE PASTE 113 GM TUBE TOP SCH ×2 (08:37→23:01)
[2020-06-26] MEDS: SODIUM BICARBONATE 650 MG TABLET PO SCH ×3 (09:33→23:00)
[2020-06-26] MEDS ORDERED: propofoL 200 MG/20 ML VIAL IV ONE (11:30)
[2020-06-26] MEDS ORDERED: LIDOCAINE 2% 5 ML VIAL ONE (11:30)
[2020-06-26] MEDS: FLUCONAZOLE INJ 100 MG in IV BAG 1 EACH IV SCH (16:53)
[2020-06-26] MEDS: LATANOPROST 0.005% OPH SOLN 2.5 ML BOTTLE BOTH EYES SCH (23:03)
[2020-06-27] MEDS: INSULIN LISPRO 100 UNIT/ML SUBCUT SCH ×7 (01:06→18:23)
[2020-06-27 05:18] LABS: Basophils % 0.3 % (0.0-0.8); Eosinophils # 0.1 10*3/uL (0.0-0.87); Eosinophils % 0.4 % (0.00-10.9); Hematocrit 23.9 VOL% (35.7-47.0); Hemoglobin 7.4 GM/DL (12.0-16.0); Immature Granulocytes % 1.6 %; Immature Granulocytes Absolute 0.25 #; Lymphocytes # 0.7 10*3/uL (1.4-4.0); Lymphocytes % 4.5 % (21.3-54.2); Mean Corpuscular Volume 84.8 FL (87-102); Mean Platelet Volume 10.7 FL (9.6-12.0); Monocytes % 7.8 % (1.7-12.7); NRBC # 0.02 10*3/uL; Neutrophils % 85.4 % (38.7-73.9); Platelet Count 347 T/CUMM (130-400); Red Blood Count 2.82 MC/CUMM (3.8-5.5); Red Cell Distribution Width 18.3 % (9.3-17.3); White Blood Count 15.2 T/CUMM (4-12)
[2020-06-27 05:26] LABS: Albumin 1.9 G/DL (3.4-5.0); Calcium 7.6 MG/DL (8.5-10.1); Osmolality,Calculated 300.4 MOS/KG (273-304); Potassium 4.1 MMOL/L (3.5-5.1)
[2020-06-27 05:38] LABS: Calcium 8.2 MG/DL (8.5-10.1); Osmolality,Calculated 295.7 MOS/KG (273-304); Potassium 3.8 MMOL/L (3.5-5.1)
[2020-06-27 05:45] LABS: Band Neutrophils 2 % (0-10); Eosinophils 1 % (0-10); Hypochromasia 2+; Lymphocytes 2 % (20-55); Metamyelocytes 1 %; Segmented Neutrophils 92 % (50-85); Total Cells Counted 100
[2020-06-27 05:46] LABS: Anisocytosis 1+; Microcytosis 1+; Platelet Estimate Normal; Polychromasia Slight; Target Cells Slight
[2020-06-27] MEDS: ARIPiprazole 10 MG TABLET PO SCH (09:26)
[2020-06-27] MEDS: PANTOPRAZOLE 40 MG TABLET PO SCH (09:26)
[2020-06-27] MEDS: buPROPion SR 100 MG TABLET PO SCH ×2 (09:26→15:11)
[2020-06-27] MEDS: carvediloL 25 MG TABLET PO SCH ×2 (09:26→21:48)
[2020-06-27] MEDS: FERROUS SULFATE 325 MG TABLET PO SCH (09:26)
[2020-06-27] MEDS: SODIUM BICARBONATE 650 MG TABLET PO SCH ×3 (09:26→21:48)
[2020-06-27] MEDS: ZINC OXIDE PASTE 113 GM TUBE TOP SCH ×2 (17:30→22:01)
[2020-06-27] MEDS: FLUCONAZOLE INJ 100 MG in IV BAG 1 EACH IV SCH (21:47)
[2020-06-27] MEDS: INSULIN GLARGINE 100 UNIT/ML SUBCUT SCH (21:48)
[2020-06-27] MEDS: LATANOPROST 0.005% OPH SOLN 2.5 ML BOTTLE BOTH EYES SCH (21:49)
[2020-06-28] MEDS: INSULIN LISPRO 100 UNIT/ML SUBCUT SCH ×7 (01:08→21:40)
[2020-06-28] MEDS ORDERED: POLYETHYLENE GLYCOL POWDER 17 GM PACK PO PRN (09:30)
[2020-06-28] MEDS: buPROPion SR 100 MG TABLET PO SCH ×3 (10:11→16:59)
[2020-06-28] MEDS: FERROUS SULFATE 325 MG TABLET PO SCH (10:11)
[2020-06-28] MEDS: carvediloL 25 MG TABLET PO SCH ×2 (10:12→22:25)
[2020-06-28] MEDS: ARIPiprazole 10 MG TABLET PO SCH (10:12)
[2020-06-28] MEDS: PANTOPRAZOLE 40 MG TABLET PO SCH (10:12)
[2020-06-28] MEDS: SODIUM BICARBONATE 650 MG TABLET PO SCH ×4 (10:12→22:25)
[2020-06-28] MEDS: INSULIN GLARGINE 100 UNIT/ML SUBCUT SCH (22:24)
[2020-06-28] MEDS: FLUCONAZOLE INJ 100 MG in IV BAG 1 EACH IV SCH (22:24)
[2020-06-28] MEDS: LATANOPROST 0.005% OPH SOLN 2.5 ML BOTTLE BOTH EYES SCH (22:25)
[2020-06-28] MEDS: ZINC OXIDE PASTE 113 GM TUBE TOP SCH ×2 (22:26→22:32)
[2020-06-29] MEDS: INSULIN LISPRO 100 UNIT/ML SUBCUT SCH ×7 (00:54→17:41)
[2020-06-29 05:05] LABS: Basophils % 0.2 % (0.0-0.8); Eosinophils % 0.4 % (0.00-10.9); Hematocrit 23.3 VOL% (35.7-47.0); Hemoglobin 7.2 GM/DL (12.0-16.0); Immature Granulocytes % 1.3 %; Immature Granulocytes Absolute 0.14 #; Lymphocytes # 0.8 10*3/uL (1.4-4.0); Lymphocytes % 6.8 % (21.3-54.2); Mean Corpuscular HGB Conc 30.9 GM/DL (32-36); Mean Corpuscular Volume 84.7 FL (87-102); Mean Platelet Volume 10.4 FL (9.6-12.0); Monocytes % 7.6 % (1.7-12.7); Neutrophils % 83.7 % (38.7-73.9); Platelet Count 348 T/CUMM (130-400); Red Blood Count 2.75 MC/CUMM (3.8-5.5); Red Cell Distribution Width 19.2 % (9.3-17.3); White Blood Count 11.1 T/CUMM (4-12)
[2020-06-29 05:15] LABS: Alanine Aminotransferase 9 U/L (13-56); Albumin 1.7 G/DL (3.4-5.0); Alkaline Phosphatase 128 U/L (45-117); Aspartate Amino Transferase 19 U/L (0-37); Bilirubin,Total < 0.39 MG/DL (0.2-1.0); Blood Urea Nitrogen 65 MG/DL (7-18); Calcium 7.6 MG/DL (8.5-10.1); Carbon Dioxide 25 MMOL/L (21-32); Estimated Glom Filtration Rate 13 ML/MIN; Glucose 74 MG/DL (74-106); Osmolality,Calculated 300.1 MOS/KG (273-304); Sodium 142 MMOL/L (136-145); Total Protein 6.1 G/DL (6.4-8.3)
[2020-06-29] MEDS: PANTOPRAZOLE 40 MG TABLET PO SCH (08:41)
[2020-06-29] MEDS: ARIPiprazole 10 MG TABLET PO SCH (08:41)
[2020-06-29] MEDS: buPROPion SR 100 MG TABLET PO SCH ×2 (08:41→15:56)
[2020-06-29] MEDS: carvediloL 25 MG TABLET PO SCH ×2 (08:41→21:23)
[2020-06-29] MEDS: FERROUS SULFATE 325 MG TABLET PO SCH (08:42)
[2020-06-29] MEDS: SODIUM BICARBONATE 650 MG TABLET PO SCH ×3 (08:42→21:23)
[2020-06-29] MEDS: ZINC OXIDE PASTE 113 GM TUBE TOP SCH ×2 (08:44→21:17)
[2020-06-29] MEDS: SEVELAMER CARBONATE 800 MG TABLET PO SCH (17:39)
[2020-06-29] MEDS: FLUCONAZOLE INJ 100 MG in IV BAG 1 EACH IV SCH (21:21)
[2020-06-29] MEDS: INSULIN GLARGINE 100 UNIT/ML SUBCUT SCH (21:23)
[2020-06-29] MEDS: LATANOPROST 0.005% OPH SOLN 2.5 ML BOTTLE BOTH EYES SCH (21:25)
[2020-06-30] MEDS: INSULIN LISPRO 100 UNIT/ML SUBCUT SCH ×8 (00:21→21:46)
[2020-06-30 06:53] LABS: Basophils % 0.2 % (0.0-0.8); Eosinophils % 0.1 % (0.00-10.9); Hematocrit 24.6 VOL% (35.7-47.0); Hemoglobin 7.2 GM/DL (12.0-16.0); Immature Granulocytes % 0.7 %; Lymphocytes # 0.7 10*3/uL (1.4-4.0); Lymphocytes % 4.9 % (21.3-54.2); Mean Corpuscular HGB Conc 29.3 GM/DL (32-36); Mean Corpuscular Volume 87.2 FL (87-102); Mean Platelet Volume 9.7 FL (9.6-12.0); Monocytes % 6.1 % (1.7-12.7); Platelet Count 388 T/CUMM (130-400); Red Blood Count 2.82 MC/CUMM (3.8-5.5); Red Cell Distribution Width 19.1 % (9.3-17.3); White Blood Count 13.7 T/CUMM (4-12)
[2020-06-30 07:12] LABS: Band Neutrophils 1 % (0-10); Hypochromasia 2+; Lymphocytes 6 % (20-55); Microcytosis 1+; Platelet Estimate Adequate; Segmented Neutrophils 90 % (50-85); Total Cells Counted 100
[2020-06-30 07:17] LABS: Albumin 1.5 G/DL (3.4-5.0); Bilirubin,Total 0.5 MG/DL (0.2-1.0); Calcium 7.8 MG/DL (8.5-10.1); Osmolality,Calculated 282.7 MOS/KG (273-304); Potassium 3.9 MMOL/L (3.5-5.1); Total Protein 6.2 G/DL (6.4-8.3)
[2020-06-30 07:19] LABS: % Iron Saturation 11.3 % (18-50); Ferritin 120.5 ng/ml (8-252)
[2020-06-30] MEDS: FERROUS SULFATE 325 MG TABLET PO SCH (08:28)
[2020-06-30] MEDS: carvediloL 25 MG TABLET PO SCH ×2 (08:28→21:44)
[2020-06-30] MEDS: SEVELAMER CARBONATE 800 MG TABLET PO SCH ×3 (08:28→17:03)
[2020-06-30] MEDS: ARIPiprazole 10 MG TABLET PO SCH (08:28)
[2020-06-30] MEDS: PANTOPRAZOLE 40 MG TABLET PO SCH (08:28)
[2020-06-30] MEDS: buPROPion SR 100 MG TABLET PO SCH ×2 (08:28→16:55)
[2020-06-30] MEDS: SODIUM BICARBONATE 650 MG TABLET PO SCH ×3 (08:28→21:44)
[2020-06-30] MEDS: ZINC OXIDE PASTE 113 GM TUBE TOP SCH ×2 (08:28→21:45)
[2020-06-30] MEDS: cefTRIAXone 1,000 MG in SYRINGE 1 EACH IV SCH (13:01)
[2020-06-30] MEDS: LATANOPROST 0.005% OPH SOLN 2.5 ML BOTTLE BOTH EYES SCH (21:44)
[2020-06-30] MEDS: INSULIN GLARGINE 100 UNIT/ML SUBCUT SCH (21:46)
[2020-06-30] MEDS: FLUCONAZOLE INJ 100 MG in IV BAG 1 EACH IV SCH (23:03)
[2020-07-01] MEDS: INSULIN LISPRO 100 UNIT/ML SUBCUT SCH ×7 (09:05→21:49)
[2020-07-01] MEDS: ARIPiprazole 10 MG TABLET PO SCH (09:10)
[2020-07-01] MEDS: SEVELAMER CARBONATE 800 MG TABLET PO SCH ×3 (09:10→18:04)
[2020-07-01] MEDS: buPROPion SR 100 MG TABLET PO SCH ×2 (09:10→15:06)
[2020-07-01] MEDS: carvediloL 25 MG TABLET PO SCH ×2 (09:10→21:49)
[2020-07-01] MEDS: ZINC OXIDE PASTE 113 GM TUBE TOP SCH ×2 (09:10→21:54)
[2020-07-01] MEDS: FERROUS SULFATE 325 MG TABLET PO SCH (09:11)
[2020-07-01] MEDS: SODIUM BICARBONATE 650 MG TABLET PO SCH ×3 (09:11→21:49)
[2020-07-01] MEDS: cefTRIAXone 1,000 MG in SYRINGE 1 EACH IV SCH (09:11)
[2020-07-01] MEDS: PANTOPRAZOLE 40 MG TABLET PO SCH (09:11)
[2020-07-01 09:19] LABS: Hematocrit 25.9 VOL% (35.7-47.0); Hemoglobin 7.3 GM/DL (12.0-16.0)
[2020-07-01] MEDS: INSULIN GLARGINE 100 UNIT/ML SUBCUT SCH (21:49)
[2020-07-01] MEDS: LATANOPROST 0.005% OPH SOLN 2.5 ML BOTTLE BOTH EYES SCH (21:54)
[2020-07-02] MEDS: carvediloL 25 MG TABLET PO SCH (08:31)
[2020-07-02] MEDS: ARIPiprazole 10 MG TABLET PO SCH (08:31)
[2020-07-02] MEDS: FERROUS SULFATE 325 MG TABLET PO SCH (08:31)
[2020-07-02] MEDS: buPROPion SR 100 MG TABLET PO SCH (08:37)
[2020-07-02] MEDS: PANTOPRAZOLE 40 MG TABLET PO SCH (08:37)
[2020-07-02] MEDS: SODIUM BICARBONATE 650 MG TABLET PO SCH (08:37)
[2020-07-02] MEDS: SEVELAMER CARBONATE 800 MG TABLET PO SCH ×2 (08:37→12:20)
[2020-07-02] MEDS: INSULIN LISPRO 100 UNIT/ML SUBCUT SCH ×3 (08:37→12:19)
[2020-07-02] MEDS: cefTRIAXone 1,000 MG in SYRINGE 1 EACH IV SCH (08:38)
[2020-07-02] MEDS: ZINC OXIDE PASTE 113 GM TUBE TOP SCH (08:38)
[2020-07-02] MEDS ORDERED: GLUCAGON 1 MG VIAL IM PRN (08:39)
[2020-07-02] MEDS ORDERED: DEXTROSE 50% 25 GM/50 ML VIAL IV PRN (08:39)
[2020-07-02] MEDS ORDERED: INSULIN LISPRO 100 UNIT/ML SUBCUT SCH (11:30)
[2020-07-02 11:59] VITALS: BP 134/70
== END 2020-07-02 14:53 | DRG 469 ==
LOC: EDBD → EDUNIT# → N.ED 05:08 → N.EDINP 09:27 → SUATTDRO 09:27 → N.EDINP 11:41 → N.5E 12:15 → N.CVR 17:54 → N.ICU 06-20 12:02 → N.5E 06-23 17:15
PROVIDERS: ADMIT Emergency Medicine; ATTEND Family Medicine

== ENCOUNTER 2022-02-09 06:13 | Inpatient (IN) ==
[2022-02-09] MEDS ORDERED: hydrALAZINE 20 MG/1 ML VIAL IV STA (06:26)
[2022-02-09] MEDS ORDERED: ASPIRIN 325 MG TABLET PO STA (06:28)
[2022-02-09] MEDS ORDERED: MORPHINE 10 MG/1 ML VIAL IV STA (06:28)
[2022-02-09] MEDS ORDERED: NITROGLYCERIN 2% OINT 1 INCH/GM PACK TOP STA (06:28)
[2022-02-09] MEDS ORDERED: ONDANSETRON 4 MG/2 ML VIAL IV STA (06:28)
[2022-02-09] MEDS ORDERED: DEXTROSE 5% NACL 0.45% 1,000 ML IV SCH (06:30)
[2022-02-09] MEDS ORDERED: MORPHINE 2 MG/1 ML SYRINGE IV STA (06:30)
[2022-02-09] MEDS ORDERED: ASPIRIN 300 MG SUPP RECTAL STA (06:32)
[2022-02-09] MEDS ORDERED: ASPIRIN 300 MG SUPP RECTAL ONE (06:33)
[2022-02-09 06:37] LABS: Basophils # 0.1 10*3/uL (0.0-0.2); Basophils % 1.1 % (0.0-0.8); Eosinophils # 0.1 10*3/uL (0.0-0.87); Eosinophils % 1.1 % (0.00-10.9); Hemoglobin 12.1 GM/DL (12.0-16.0); Immature Granulocytes % 0.2 %; Immature Granulocytes Absolute 0.01 #; Lymphocytes # 1.1 10*3/uL (1.4-4.0); Lymphocytes % 16.9 % (21.3-54.2); Mean Corpuscular HGB Conc 31.8 GM/DL (32-36); Mean Corpuscular Volume 93.4 FL (87-102); Mean Platelet Volume 10.3 FL (9.6-12.0); Monocytes # 0.5 10*3/uL (0.11-0.8); Monocytes % 7.4 % (1.7-12.7); Neutrophils % 73.3 % (38.7-73.9); Platelet Count 226 T/CUMM (130-400); Red Blood Count 4.07 MC/CUMM (3.8-5.5); White Blood Count 6.3 T/CUMM (4-12)
[2022-02-09 06:53] LABS: Bacteria,Urine Occasional /HPF (Few); RBC,Urine <1 /HPF (0-4); Squamous Epithelial Cell,Urine Occasional /HPF (0-10)
[2022-02-09 06:58] LABS: Bilirubin,Urine Negative (Negative); Blood, Urine Small mg/dL (Negative); Glucose,Urine (UA) 100 mg/dL (Negative); Ketones,Urine Negative (Negative); Nitrite,Urine Negative (Negative); Protein,Urine >=300 mg/dL (Negative); Urine Appearance Clear (Clear); Urine Color Yellow (Yellow); Urine Urobilinogen 0.2 eU/dL (<2.0); Urine pH 7.5 (4.5-8.0)
[2022-02-09 07:02] LABS: Alanine Aminotransferase 21 U/L (13-56); Albumin 3.3 G/DL (3.4-5.0); Alkaline Phosphatase 138 U/L (45-117); Aspartate Amino Transferase 18 U/L (0-37); Bilirubin,Total < 0.39 MG/DL (0.20-1.00); Blood Urea Nitrogen 67 MG/DL (7-18); Calcium 8.3 MG/DL (8.5-10.1); Carbon Dioxide 28 MMOL/L (21-32); Chloride 98 MMOL/L (98-107); Glucose 106 MG/DL (74-106); Potassium 3.9 MMOL/L (3.5-5.1); Sodium 136 MMOL/L (136-145); Total Protein 8.1 G/DL (6.4-8.2)
[2022-02-09 07:20] LABS: Barbiturates Screen,Urine Negative (Negative); Benzodiazepines Screen,Urine Negative (Negative); Cannabinoid Screen,Urine Negative (Negative); Opiate Screen,Urine Negative (Negative); Phencyclidine Screen,Urine Negative (Negative)
[2022-02-09 07:57] LABS: Free T4 (Free Thyroxine) 0.99 NG/DL (0.76-1.46); Thyroid Stimulating Hormone 1.97 uIU/ml (0.358-3.74)
[2022-02-09 08:12] LABS: Arterial Base Excess iSTAT 6 MMOL/L (-2.5-2.5); Arterial Bicarbonate iSTAT 33.1 MMOL/L (20-26); Arterial O2 Saturation iSTAT 95 % (95-100); Arterial PCO2 iSTAT 59 MM HG (35-48); Arterial PO2 iSTAT 82 MM HG (80-95); Arterial Total CO2 iSTAT 35 MMO/L (23-27); Arterial pH iSTAT 7.357 (7.35-7.45)
[2022-02-09] MEDS ORDERED: ALBUTEROL 2.5 MG/3 ML NEB RESP TX PRN (08:55)
[2022-02-09] MEDS ORDERED: SIMETHICONE CHEW 125 MG TABLET PO PRN (08:55)
[2022-02-09] MEDS ORDERED: DEXTROSE 10% 250 ML BAG IV PRN ×2 (08:55)
[2022-02-09] MEDS ORDERED: GLUCAGON 1 MG VIAL IM PRN ×2 (08:55)
[2022-02-09] MEDS ORDERED: ACETAMINOPHEN 325 MG TABLET PO PRN (08:55)
[2022-02-09] MEDS ORDERED: hydrALAZINE 20 MG/1 ML VIAL IV PRN (08:55)
[2022-02-09] MEDS ORDERED: DOCUSATE SODIUM 100 MG CAPSULE PO PRN (08:55)
[2022-02-09] MEDS ORDERED: ONDANSETRON 4 MG/2 ML VIAL IV PRN (08:55)
[2022-02-09] MEDS: SEVELAMER CARBONATE 800 MG TABLET PO SCH ×3 (11:45→20:17)
[2022-02-09] MEDS: carvediloL 25 MG TABLET PO SCH ×2 (11:45→18:15)
[2022-02-09] MEDS: CINACALCET 30 MG TABLET PO SCH (11:45)
[2022-02-09] MEDS: FERROUS SULFATE 325 MG TABLET PO SCH (11:45)
[2022-02-09] MEDS: amLODIPine 10 MG TABLET PO SCH (11:45)
[2022-02-09] MEDS: buPROPion SR 100 MG TABLET PO SCH ×2 (11:45→20:17)
[2022-02-09] MEDS: PANTOPRAZOLE 40 MG TABLET PO SCH (11:45)
[2022-02-09] MEDS: HEPARIN 5,000 UNIT/1 ML VIAL SUBCUT SCH ×2 (11:45→20:17)
[2022-02-09] MEDS ORDERED: VANCOMYCIN INJ 750 MG in SODIUM CHLORIDE 0.9% 250 ML IV PRN (11:54)
[2022-02-09] MEDS ORDERED: VANCOMYCIN INJ 1,750 MG in SODIUM CHLORIDE 0.9% 500 ML IV ONE (12:00)
[2022-02-09] MEDS ORDERED: VANCOMYCIN INJ 1,000 MG in SODIUM CHLORIDE 0.9% 250 ML IV SCH (14:00)
[2022-02-09] MEDS: CHOLECALCIFEROL 5,000 UNIT TABLET PO SCH (18:15)
[2022-02-09] MEDS: LATANOPROST 0.005% OPH SOLN 2.5 ML BOTTLE BOTH EYES SCH (20:17)
[2022-02-09] MEDS: INSULIN REGULAR 100 UNIT/ML SUBCUT SCH ×2 (20:18→23:38)
[2022-02-10 02:59] LABS: Basophils % 0.7 % (0.0-0.8); Eosinophils # 0.1 10*3/uL (0.0-0.87); Eosinophils % 1.3 % (0.00-10.9); Hematocrit 32.6 VOL% (35.7-47.0); Hemoglobin 10.1 GM/DL (12.0-16.0); Immature Granulocytes % 0.4 %; Immature Granulocytes Absolute 0.02 #; Lymphocytes # 1.2 10*3/uL (1.4-4.0); Lymphocytes % 23.2 % (21.3-54.2); Mean Corpuscular Volume 95.6 FL (87-102); Mean Platelet Volume 10.1 FL (9.6-12.0); Monocytes # 0.5 10*3/uL (0.11-0.8); Monocytes % 8.6 % (1.7-12.7); Neutrophils % 65.8 % (38.7-73.9); Platelet Count 188 T/CUMM (130-400); Red Blood Count 3.41 MC/CUMM (3.8-5.5); Red Cell Distribution Width 14.2 % (9.3-17.3); White Blood Count 5.3 T/CUMM (4-12)
[2022-02-10 03:34] LABS: Alanine Aminotransferase 19 U/L (13-56); Albumin 2.7 G/DL (3.4-5.0); Alkaline Phosphatase 117 U/L (45-117); Aspartate Amino Transferase 33 U/L (0-37); Bilirubin,Total < 0.39 MG/DL (0.20-1.00); Blood Urea Nitrogen 44 MG/DL (7-18); Calcium 7.4 MG/DL (8.5-10.1); Carbon Dioxide 29 MMOL/L (21-32); Chloride 106 MMOL/L (98-107); Glucose 145 MG/DL (74-106); Osmolality,Calculated 296.1 MOS/KG (273-304); Potassium 5.1 MMOL/L (3.5-5.1); Sodium 142 MMOL/L (136-145); Total Protein 6.4 G/DL (6.4-8.2)
[2022-02-10 03:54] LABS: Arterial Base Excess iSTAT 6 MMOL/L (-2.5-2.5); Arterial Bicarbonate iSTAT 31.7 MMOL/L (20-26); Arterial O2 Saturation iSTAT 95 % (95-100); Arterial PCO2 iSTAT 52 MM HG (35-48); Arterial PO2 iSTAT 77 MM HG (80-95); Arterial Total CO2 iSTAT 33 MMO/L (23-27); Arterial pH iSTAT 7.392 (7.35-7.45)
[2022-02-10] MEDS: INSULIN REGULAR 100 UNIT/ML SUBCUT SCH ×7 (04:11→23:34)
[2022-02-10] MEDS ORDERED: INSULIN GLARGINE 100 UNIT/ML SUBCUT ONE (08:19)
[2022-02-10] MEDS: carvediloL 25 MG TABLET PO SCH ×2 (08:45→17:05)
[2022-02-10] MEDS: PANTOPRAZOLE 40 MG TABLET PO SCH (08:45)
[2022-02-10] MEDS: buPROPion SR 100 MG TABLET PO SCH ×2 (08:45→20:24)
[2022-02-10] MEDS: ARIPiprazole 10 MG TABLET PO SCH (08:45)
[2022-02-10] MEDS: FERROUS SULFATE 325 MG TABLET PO SCH (08:45)
[2022-02-10] MEDS: amLODIPine 10 MG TABLET PO SCH (08:45)
[2022-02-10] MEDS: CINACALCET 30 MG TABLET PO SCH (08:45)
[2022-02-10] MEDS: CHOLECALCIFEROL 5,000 UNIT TABLET PO SCH (08:45)
[2022-02-10] MEDS: HEPARIN 5,000 UNIT/1 ML VIAL SUBCUT SCH ×2 (08:45→20:25)
[2022-02-10] MEDS: SEVELAMER CARBONATE 800 MG TABLET PO SCH ×4 (08:45→20:24)
[2022-02-10] MEDS ORDERED: VANCOMYCIN INJ 750 MG in SODIUM CHLORIDE 0.9% 250 ML IV ONE (10:00)
[2022-02-10] MEDS ORDERED: HEPARIN 5,000 UNIT/1 ML VIAL IV PRN (10:23)
[2022-02-10] MEDS: HEPARIN 10,000 UNIT/10 ML VIAL IV SCH ×2 (11:50→17:40)
[2022-02-10 18:11] VITALS: BP 158/78
[2022-02-10] MEDS: LATANOPROST 0.005% OPH SOLN 2.5 ML BOTTLE BOTH EYES SCH (20:25)
[2022-02-10] MEDS ORDERED: INSULIN GLARGINE 100 UNIT/ML SUBCUT SCH (21:00)
[2022-02-11] MEDS: INSULIN REGULAR 100 UNIT/ML SUBCUT SCH ×5 (03:37→20:45)
[2022-02-11 06:05] LABS: Basophils % 0.9 % (0.0-0.8); Eosinophils # 0.1 10*3/uL (0.0-0.87); Eosinophils % 2.7 % (0.00-10.9); Hematocrit 30.4 VOL% (35.7-47.0); Hemoglobin 9.5 GM/DL (12.0-16.0); Immature Granulocytes % 0.2 %; Immature Granulocytes Absolute 0.01 #; Lymphocytes # 1.6 10*3/uL (1.4-4.0); Lymphocytes % 36.1 % (21.3-54.2); Mean Corpuscular HGB Conc 31.3 GM/DL (32-36); Mean Corpuscular Volume 94.4 FL (87-102); Mean Platelet Volume 10.2 FL (9.6-12.0); Monocytes # 0.5 10*3/uL (0.11-0.8); Monocytes % 10.9 % (1.7-12.7); Neutrophils % 49.2 % (38.7-73.9); Platelet Count 184 T/CUMM (130-400); Red Blood Count 3.22 MC/CUMM (3.8-5.5); White Blood Count 4.4 T/CUMM (4-12)
[2022-02-11 06:19] LABS: Calcium 7.3 MG/DL (8.5-10.1); Osmolality,Calculated 298.1 MOS/KG (273-304); Potassium 3.9 MMOL/L (3.5-5.1)
[2022-02-11] MEDS: HEPARIN 5,000 UNIT/1 ML VIAL SUBCUT SCH ×2 (09:27→20:45)
[2022-02-11] MEDS: CHOLECALCIFEROL 5,000 UNIT TABLET PO SCH (09:28)
[2022-02-11] MEDS: CINACALCET 30 MG TABLET PO SCH (09:28)
[2022-02-11] MEDS: SEVELAMER CARBONATE 800 MG TABLET PO SCH ×4 (09:28→20:44)
[2022-02-11] MEDS: PANTOPRAZOLE 40 MG TABLET PO SCH (09:28)
[2022-02-11] MEDS: buPROPion SR 100 MG TABLET PO SCH ×2 (09:28→20:44)
[2022-02-11] MEDS: ARIPiprazole 10 MG TABLET PO SCH (09:28)
[2022-02-11] MEDS: FERROUS SULFATE 325 MG TABLET PO SCH (09:28)
[2022-02-11] MEDS: amLODIPine 10 MG TABLET PO SCH (10:43)
[2022-02-11] MEDS: carvediloL 25 MG TABLET PO SCH ×2 (10:43→17:37)
[2022-02-11] MEDS ORDERED: VANCOMYCIN INJ 750 MG in SODIUM CHLORIDE 0.9% 250 ML IV ONE (17:00)
[2022-02-11] MEDS: LATANOPROST 0.005% OPH SOLN 2.5 ML BOTTLE BOTH EYES SCH (20:46)
[2022-02-11] MEDS ORDERED: INSULIN GLARGINE 100 UNIT/ML SUBCUT SCH (21:00)
[2022-02-12] MEDS ORDERED: HEPARIN LOCK FLUSH 500 UNIT/5 ML SYRINGE IV PRN (02:02)
[2022-02-12] MEDS ORDERED: HEPARIN 2,000 UNIT/2 ML VIAL IV ONE (03:00)
[2022-02-12] MEDS: INSULIN REGULAR 100 UNIT/ML SUBCUT SCH (07:47)
[2022-02-12] MEDS ORDERED: SEVELAMER CARBONATE 800 MG TABLET PO SCH (08:00)
[2022-02-12] MEDS: CINACALCET 30 MG TABLET PO SCH (09:22)
[2022-02-12] MEDS: ARIPiprazole 10 MG TABLET PO SCH (09:23)
[2022-02-12] MEDS: buPROPion SR 100 MG TABLET PO SCH (09:23)
[2022-02-12] MEDS: CHOLECALCIFEROL 5,000 UNIT TABLET PO SCH (09:24)
[2022-02-12] MEDS: amLODIPine 10 MG TABLET PO SCH (09:24)
[2022-02-12] MEDS: carvediloL 25 MG TABLET PO SCH (09:24)
[2022-02-12] MEDS: SEVELAMER CARBONATE 800 MG TABLET PO SCH (09:24)
[2022-02-12] MEDS: PANTOPRAZOLE 40 MG TABLET PO SCH (09:24)
[2022-02-12] MEDS: FERROUS SULFATE 325 MG TABLET PO SCH (09:24)
[2022-02-12] MEDS: HEPARIN 5,000 UNIT/1 ML VIAL SUBCUT SCH (09:25)
== END 2022-02-12 13:26 | DRG 344 ==
LOC: N.ED 06:13 → SUATTDRO 08:55 → N.EDINP 08:55 → N.CC 09:40
PROVIDERS: ADMIT Internal Medicine; ATTEND Family Medicine